=== PATIENT | female | born 1975 | race Caucasian/White ===

== ENCOUNTER 2023-01-01 09:05 | Outpatient (CLI) | payer OTHER, SELFPAY ==
--- NOTE | 2023-01-01 09:15 | CRLHL7_ITS ---
For Patients: As a result of the Century Cures Act, medical imaging exams and procedure reports are released immediately into your electronic medical record. You may view this report before your referring provider. If you have questions, please contact your health care provider. ULTRASOUND-GUIDED LEFT AXILLARY LYMPH NODE BIOPSY CLINICAL HISTORY: Suspicious mass left breast with suspicious left axillary lymph nodes COMPARISON STUDIES: 12/28/2022 TECHNIQUE: Real-time ultrasound with image documentation was used for targeting the left axillary lesion. Core biopsy specimens were obtained using an automated gun with a 18-gauge biopsy needle. CONSENT and TIME OUT: The procedure, risks, and alternatives were explained to the patient and a consent was signed. [place] Protocol was followed including pre-procedure verification that relevant information/documentation was available, reviewed and properly matched to the patient; consent accurate and complete; and equipment and supplies available. Time Out was conducted just prior to starting procedure to verify the four required elements: patient identity, correct side/site marked (if applicable), procedure, relevant images/results properly labeled and displayed (if applicable). PROCEDURE: The patient was positioned supine on the ultrasound table. The breast was prepped with ChloraPrep. 8 cc of 1 percent lidocaine used for local anesthesia. Core samples were obtained. A sterile metal biopsy clip was placed percutaneously to evita the lesion position within the left axilla. The specimens were placed in 10% formalin and sent to the pathology department. Pressure was held on the biopsy site until all bleeding subsided. The skin incision was closed with Steri-Strips. An ice pack was positioned over the biopsy site. Post-biopsy instructions were reviewed with the patient, and a written copy was given to her. LATERALITY: Left axilla LESION: Enlarged lymph node with thickened lobular hypoechoic cortex. The cortex measures up to 4.5 millimeters. The lymph node measures 2.2 cm. SUSPICION FOR MALIGNANCY: High NUMBER OF SAMPLES: 5 BIOPSY CLIP SHAPE: Oval PROXIMITY OF CLIP TO TARGET: Within the lesion IMPRESSION: Ultrasound-guided left axillary lymph node biopsy. When the pathology report is available, an addendum to this report will be made. Dictated by Prashant White MD @ 01/01/2023 12:13:48 PM ADDENDUM: Pathology consistent with metastatic carcinoma to a lymph node. This is concordant. Prashant White M.D. Diagnostic Radiologist [email or web address] DSM/djw: D& Transcribed: 11:18 a.m. (Electronically Signed)
--- NOTE | 2023-01-01 10:15 | CRLHL7_ITS ---
For Patients: As a result of the Century Cures Act, medical imaging exams and procedure reports are released immediately into your electronic medical record. You may view this report before your referring provider. If you have questions, please contact your health care provider. ULTRASOUND-GUIDED BREAST BIOPSY AND POST-BIOPSY DIGITAL MAMMOGRAM FOR BIOPSY MARKER PLACEMENT CLINICAL HISTORY: Suspicious mass LEFT breast. COMPARISON STUDIES: 12/28/2022. TECHNIQUE: Real-time ultrasound with image documentation was used for targeting the breast lesion. Core biopsy specimens were obtained using an automated gun with a 18-gauge biopsy needle. Post-biopsy CC and ML digital mammograms were obtained to document position of the biopsy marker. CONSENT and TIME OUT: The procedure, risks, and alternatives were explained to the patient and a consent was signed. [place] Protocol was followed including pre-procedure verification that relevant information/documentation was available, reviewed and properly matched to the patient; consent accurate and complete; and equipment and supplies available. Time Out was conducted just prior to starting procedure to verify the four required elements: patient identity, correct side/site marked (if applicable), procedure, relevant images/results properly labeled and displayed (if applicable). PROCEDURE: The patient was positioned supine on the ultrasound table. The breast was prepped with ChloraPrep. 8 cc of 1 percent lidocaine used for local anesthesia. Core samples were obtained. A sterile metal biopsy clip was placed percutaneously to evita the lesion position within the breast. The specimens were placed in 10% formalin and sent to the pathology department. Pressure was held on the biopsy site until all bleeding subsided. The skin incision was closed with Steri-Strips. An ice pack was positioned over the biopsy site. Post-biopsy instructions were reviewed with the patient, and a written copy was given to her. LATERALITY: LEFT breast. LESION: Heterogeneously hypoechoic lobular mass including calcifications with ill-defined margins measuring approximately 2.7 x 3.1 cm at 2 o`clock 5 cm from the nipple. SUSPICION FOR MALIGNANCY: High. NUMBER OF SAMPLES: 6 BIOPSY CLIP SHAPE: Oval. PROXIMITY OF CLIP TO TARGET: Within the lesion. IMPRESSION: Ultrasound-guided breast biopsy. When the pathology report is available, an addendum to this report will be made. 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 This is concordant. Appropriate action recommended. Dictated by: Prashant White MD @01/05/2023 10:48:13 AM (Electronically Signed)
--- NOTE | 2023-01-01 11:00 | CRLHL7_ITS ---
For Patients: As a result of the Century Cures Act, medical imaging exams and procedure reports are released immediately into your electronic medical record. You may view this report before your referring provider. If you have questions, please contact your health care provider. PLEASE SEE LEFT ULTRASOUND-GUIDED BIOPSY OF SAME DAY. CRL:autumn NORIS/Dictated by: Prashant White MD @ 01/01/2023 10:40:00 AM (Electronically Signed)
== END 2023-01-01 09:06 | disposition home or self-care (01) ==
LOC: US 09:11
PROVIDERS: PCP Family Medicine; Visit Provider Family Medicine
DX: N63.20 Unspecified lump in the left breast, unspecified quadrant (principal); C50.912 Malignant neoplasm of unspecified site of left female breast
CPT/HCPCS: 19083; 38505; 76942; 77065; 88305; 88360; 88361; A4648; A4649

== ENCOUNTER 2023-01-10 12:54 | Outpatient (CLI) | payer OTHER, SELFPAY ==
--- NOTE | 2023-01-10 13:00 | CRLHL7_ITS ---
For Patients: As a result of the Century Cures Act, medical imaging exams and procedure reports are released immediately into your electronic medical record. You may view this report before your referring provider. If you have questions, please contact your health care provider. BILATERAL BREAST MRI WITHOUT AND WITH GADOLINIUM CLINICAL HISTORY: Recently diagnosed invasive ductal carcinoma in the LEFT breast and metastatic carcinoma in a LEFT axillary lymph node. INDICATION FOR BREAST MRI: Staging of newly diagnosed breast cancer and screening of contralateral breast. Regional lymph nodes will also be assessed. COMPARISON STUDIES: Diagnostic bilateral mammogram and LEFT breast and axillary ultrasound 12/28/2022; ultrasound-guided LEFT breast and LEFT axillary lymph node biopsy and post biopsy mammogram 01/02/2020. CONTRAST: 20 mL Dotarem. TECHNIQUE: The patient was positioned prone using a breast coil. Multiple imaging sequences were obtained using 1-1.5 mm thick slices with no gap. The image sequences include T2-weighted STIR in the axial plane, T1-weighted nonfat-saturated gradient echo in the axial plane, pre- and post-contrast T1-weighted FLASH 3D with fat suppression in the axial plane, and T1-weighted FLASH high resolution 3D with fat suppression in the sagittal plane. Image post-processing was performed on a [employer] workstation. Complex 3D rendering including maximum intensity projections (MIPS) and volumetric renderings were obtained to optimize visualization of the extent of pathology and relationship to the nipple, skin, and chest wall. This aids in determining feasibility of breast conservation surgery. Subtraction, multiplanar reconstruction, mean curve determination, and angiogenesis mapping were also performed. The study was technically adequate. FINDINGS: Amount of Fibroglandular Tissue: Scattered fibroglandular tissue. Breast Background Enhancement: Mild. The exam is nondiagnostic due to lack of fat suppression on the axial images. IMPRESSIONS AND RECOMMENDATIONS: Nondiagnostic exam. Recommend technical repeat MRI. Dictated by Antoinette Tao MD @ 01/15/2023 1:36:04 PM/autumn NORIS/Dictated by: Antoinette Tao MD @ 01/15/2023 1:36:00 PM (Electronically Signed)
== END 2023-01-10 12:55 | disposition home or self-care (01) ==
PROVIDERS: PCP Family Medicine; Visit Provider Surgery
DX: C50.912 Malignant neoplasm of unspecified site of left female breast (principal); C77.3 Secondary and unspecified malignant neoplasm of axilla and upper limb lymph nodes
CPT/HCPCS: 77049; A9575

== ENCOUNTER 2023-01-16 12:33 | Outpatient (CLI) | payer OTHER, SELFPAY ==
--- NOTE | 2023-01-16 13:00 | CRLHL7_ITS ---
For Patients: As a result of the Century Cures Act, medical imaging exams and procedure reports are released immediately into your electronic medical record. You may view this report before your referring provider. If you have questions, please contact your health care provider. INDICATION: Newly diagnosed left-sided breast cancer. Left breast and left axillary lymph node biopsy recently. Metastatic left axillary lymph node. TECHNIQUE: Contrast enhanced CT of the chest abdomen and pelvis. 122 cc nonionic Isovue-370 administered. FINDINGS: CT chest: Clear lungs. No pneumothoraces nodules or infiltrates. No pleural or pericardial effusions. The trachea and mainstem bronchi are patent and clear. Asymmetric breast tissue left breast relative to the right with a biopsy clip laterally. Possible skin thickening of the left breast. Prominent left axillary lymph node measuring 1.6 cm with a biopsy clip in the thickened cortex, image 32 series 2. There is a 2nd mildly prominent left axillary lymph node image 40 series 2 measuring up to 1.7 cm. No internal mammary chain lymphadenopathy no hilar or mediastinal lymphadenopathy. The visualized included right breast is unremarkable. 7 mm low-attenuation right thyroid lobe lesion likely a colloid cyst. CT of the abdomen and pelvis: Mild hepatic fatty infiltration. The liver is otherwise negative. The spleen, pancreas, partly contracted gallbladder, both adrenal glands and both kidneys are normal. The stomach and duodenum although incompletely distended are within normal limits. The small and large bowel are negative for obstruction or ileus. No evidence for abdominal pelvic ascites or lymphadenopathy. The uterus, urinary bladder, and both ovaries are within normal limits. Calcified pelvic phleboliths. Both inguinal regions are unremarkable. The included skeleton is negative for lytic or blastic metastatic disease. No acute fractures. IMPRESSION: 1. Biopsy clip within the left breast and within a single left axillary node. Two mildly prominent left axillary lymph nodes in total one of which contains the biopsy clip. 2. Small colloid cyst right thyroid lobe. Mild hepatic fatty infiltration. 3. The examination is otherwise negative. Please note that all CT scans at this facility use dose modulation, iterative reconstruction, and/or weight-based dosing when appropriate to reduce radiation dose to as low as reasonably achievable. Dictated by Aristeo Rice MD @ 01/17/2023 6:30:18 AM (Electronically Signed)
--- NOTE | 2023-01-16 14:30 | CRLHL7_ITS ---
For Patients: As a result of the 21st Century Cures Act, medical imaging exams and procedure reports are released immediately into your electronic medical record. You may view this report before your referring provider. If you have questions, please contact your health care provider. BILATERAL BREAST MRI WITHOUT AND WITH GADOLINIUM, 01/16/2023 CLINICAL HISTORY: 47-year-old female with recently diagnosed LEFT breast cancer with biopsy-proven LEFT axillary metastasis. INDICATION FOR BREAST MRI: Staging of newly diagnosed breast cancer and screening of contralateral breast. Regional lymph nodes will also be assessed. COMPARISON STUDIES: Mammogram 12/28/2022, LEFT breast ultrasound and LEFT axillary ultrasound 12/28/2022, ultrasound-guided LEFT breast biopsy and axillary lymph node biopsy with post procedure mammogram 01/01/2023. CONTRAST: 20 cc of Dotarem. TECHNIQUE: The patient was positioned prone using a breast coil. Multiple imaging sequences were obtained using 1-1.5 mm thick slices with no gap. The image sequences include T2-weighted STIR in the axial plane, T1-weighted nonfat-saturated gradient echo in the axial plane, pre- and post-contrast T1-weighted FLASH 3D with fat suppression in the axial plane, and T1-weighted FLASH high resolution 3D with fat suppression in the sagittal plane. Image post-processing was performed on a [employer] workstation. Complex 3D rendering including maximum intensity projections (MIPS) and volumetric renderings were obtained to optimize visualization of the extent of pathology and relationship to the nipple, skin, and chest wall. This aids in determining feasibility of breast conservation surgery. Subtraction, multiplanar reconstruction, mean curve determination, and angiogenesis mapping were also performed. The study was technically adequate. FINDINGS: Amount of Fibroglandular Tissue: Scattered fibroglandular tissue. Breast Background Enhancement: Mild. RIGHT Breast: No suspicious areas of enhancement. LEFT Breast: Within the upper outer quadrant from 12-2 o`clock, middle depth there is an irregular with irregular margins and heterogeneous internal enhancement measuring 4.3 x 3.9 x 3.5 cm. This demonstrates fast initial enhancement with washout. Artifact from a biopsy marker clip is seen within the mass. This is consistent with the site of biopsy-proven malignancy. There is mild skin thickening and enhancement within the skin. There is a second mass, central to the nipple at 2-3 o`clock, anterior which is irregular with irregular margins and heterogeneous internal enhancement measuring 1.1 x 1.2 x 1.8 cm. This is located approximately 0.3 cm from the base of the nipple. This demonstrates fast initial enhancement with washout. There is intervening clumped non-mass enhancement. This area in total measures up to 7.1 cm. Lymph Nodes: There is an enlarged level I LEFT axillary lymph node with diffuse cortical thickening measuring up to 0.9 cm. Artifact from biopsy marker clip is seen within the lymph node. This is consistent with the known biopsy-proven aden metastasis. IMPRESSIONS AND RECOMMENDATIONS: LEFT Breast: 1. Mass and non-mass enhancement within the upper outer quadrant of the LEFT breast, anterior to middle depth, in total measuring up to 7 cm. The larger mass at the posterior aspect of the enhancement, measures up to 4.3 cm and contains the biopsy marker clip and is consistent with biopsy-proven malignancy. If it would alter clinical/surgical management, targeted ultrasound and ultrasound-guided biopsy of the anterior mass at 2-3 o`clock is recommended. Surgical/oncologic follow-up. 2. Abnormal LEFT axillary lymph node, consistent with known aden metastasis. RIGHT Breast: Negative, there is no MRI evidence of contralateral malignancy. BI-RADS Category 6: Known Biopsy-Proven Malignancy Dictated by Erica Valera MD @ 01/18/2023 1:40:06 PM dmitry/Dictated by: Erica Valera MD @ 01/18/2023 1:40:00 PM (Electronically Signed)
== END 2023-01-16 12:34 | disposition home or self-care (01) ==
PROVIDERS: PCP Family Medicine; Visit Provider Internal Medicine Hematology & Oncology
DX: C50.912 Malignant neoplasm of unspecified site of left female breast (principal); C77.3 Secondary and unspecified malignant neoplasm of axilla and upper limb lymph nodes; E04.1 Nontoxic single thyroid nodule; K76.0 Fatty (change of) liver, not elsewhere classified
CPT/HCPCS: 71260; 74177; 77049; A9575; Q9967

== ENCOUNTER 2023-01-25 06:11 | Day surgery (SDC) | payer OTHER, SELFPAY ==
[2023-01-25] MEDS: LACTATED RINGERS 1000 ML 1,000 ML 100 ML IV (06:20)
[2023-01-25 06:39] VITALS: BP 145/79; PULSE 73; RESP 16; TEMP 36.7; O2SAT 96; BMI 41.5
[2023-01-25 06:55] LABS: Ur HCG Qualitative* Negative (Negative)
[2023-01-25] MEDS: SODIUM CHLORIDE 0.9 % (FLUSH) 10 ML SYRINGE IVF (07:00)
--- NOTE | 2023-01-25 07:30 | CRLHL7_ITS ---
For Patients: As a result of the Century Cures Act, medical imaging exams and procedure reports are released immediately into your electronic medical record. You may view this report before your referring provider. If you have questions, please contact your health care provider. Indication: Port-A-Cath placement Technique: Two fluoroscopic images of the chest. Fluoroscopic time 37.1 seconds. IMPRESSION: Fluoroscopic guidance for Port-A-Cath placement. Dictated by Prashant White MD @ 01/25/2023 9:52:48 AM (Electronically Signed)
[2023-01-25] MEDS: CLINDAMYCIN 900 MG/50 ML-D5W IVPB (07:45)
[2023-01-25] MEDS: HEPARIN 500 UNIT/5 ML SYRINGE IVF (08:20)
[2023-01-25] MEDS: BUPIVACAINE 0.5% 30 ML INJECTION (08:20)
[2023-01-25] MEDS: 0.9% SODIUM CHL 50 ML VIAL INJECTION (08:20)
[2023-01-25] MEDS: LIDOCAINE 1% MDV 20 ML INJECTION (08:20)
--- NOTE | 2023-01-25 08:27 | CRLHL7_ITS ---
For Patients: As a result of the Century Cures Act, medical imaging exams and procedure reports are released immediately into your electronic medical record. You may view this report before your referring provider. If you have questions, please contact your health care provider. INDICATION: Port placement TECHNIQUE: Chest 1 view. COMPARISON: 01/25/2023 FINDINGS: Cardiovascular and mediastinum: Heart size and vasculature are normal in caliber and appearance. Mediastinum is within normal limits. History port catheter tip mid SVC. Lungs and pleural space: Lungs are clear. No sign of infiltrate or mass. No sign of pleural effusion. No pneumothorax. Bones and soft tissues: No significant findings. IMPRESSION: Versed pedrito catheter tip in the mid SVC. No pneumothorax Dictated by Prashant Juarez MD @ 01/25/2023 9:37:21 AM (Electronically Signed)
--- NOTE | 2023-01-25 08:29 | PM.GSPRC ---
Operative Note Pre-op diagnosis: Left-sided triple positive invasive ductal carcinoma with axillary lymph node metastasis Post-op diagnosis: Same Type of Procedure: Right IJ port placement with ultrasound and fluoroscopic guidance Indications: The patient is a 47-year-old female who was found have a palpable breast mass. Imaging revealed a suspicious mass which was biopsied and found to be triple positive invasive ductal carcinoma. A left axillary lymph node was noted to be enlarged and this was biopsied and found to be positive for metastatic carcinoma. She was felt to benefit from neoadjuvant chemotherapy and her oncologist has requested port placement. Procedure Description: After discussing the risks and benefits of the procedure, the patient signed informed consent.? The operative site was marked and the patient was brought to the operating room and placed on the operating table in supine position.? Care was taken to pad the patient's pressure points.?? The patient was then given sedation by anesthesia.?? The operative site was then prepped and draped in the usual sterile fashion.? A time-out was then performed. The patient's right internal jugular vein was visualized using ultrasound. Local anesthetic was injected into the skin overlying the vein. This was accessed percutaneously using ultrasound guidance. Using Seldinger technique, a guidewire was threaded through the needle. A skin analia was made around the wire. Next, local anesthetic was injected into the skin below the clavicle and along the proposed tract to the neck incision. A skin incision was then made with a 15 blade and a pocket created in the subcutaneous tissue with cautery. A tunneler was then used to thread the catheter from the chest wall pocket to the neck incision. Once this was done fluoroscopy was brought into the field. Over the wire the tract was dilated using fluoroscopy. The wire and the dilator were then removed leaving the sheath in the vein. Through this, the catheter was threaded. Using fluoroscopy, the catheter was positioned into the distal SVC. The catheter was noted to flush and aspirate easily. The catheter was then connected to the port. The port was placed in the pocket and secured in place with 2 0 Prolene sutures. It was noted to flush and aspirate easily. This was then locked with heparinized saline. The skin was closed with absorbable suture. Glue was then applied. Instrument sponge and needle counts were correct at the end of the case. The patient was woken and taken to the PACU in stable condition. ? The patient tolerated the procedure well. Findings: Right IJ power port placed in the mid SVC. Implants: Power port Anesthesia: MAC Surgeon: Aure Howell MD Estimated blood loss (mL): 3 Condition: stable Disposition: same day
--- NOTE | 2023-01-25 08:37 | W.ANESCHARGE ---
Anesthesia Charges Start Date/Time Anesthesia Start Date: 01/25/23 Anesthesia Start Time: 07:38 Stop Date/Time Anesthesia Stop Date: 01/25/23 Anesthesia Stop Time: 08:36
[2023-01-25 08:41] VITALS: BP 131/74; PULSE 66; RESP 16; TEMP 36.8; O2SAT 97
[2023-01-25 08:53] VITALS: BP 124/72; PULSE 58; RESP 16; O2SAT 98
[2023-01-25] MEDS: IBUPROFEN 600 MG TABLET PO (08:58)
[2023-01-25 09:03] VITALS: BP 111/73; PULSE 61; RESP 16; O2SAT 98
[2023-01-25 09:19] VITALS: BP 123/65; PULSE 60; RESP 16; O2SAT 99
== END 2023-01-25 09:46 | disposition home or self-care (01) ==
PROVIDERS: Anesthesiology; PCP Family Medicine; Visit Provider Surgery
PROC: (CPT 36561; principal; 2023-01-25 07:30)
DX: Z45.2 Encounter for adjustment and management of vascular access device (principal); C50.912 Malignant neoplasm of unspecified site of left female breast; Z17.0 Estrogen receptor positive status [ER+]; C77.3 Secondary and unspecified malignant neoplasm of axilla and upper limb lymph nodes
CPT/HCPCS: 36561; 00532; 71045; 76000; 81025; A9270; C1788; J0665; J1100; J1642; J2250; J2405; J2704; J3010; J7120; S0077

== ENCOUNTER 2023-06-01 14:01 | Outpatient (CLI) | payer OTHER, SELFPAY | END 2023-06-01 14:02 | disposition home or self-care (01) | LOC: RAD 14:01 | PROVIDERS: PCP Family Medicine; Visit Provider Internal Medicine Hematology & Oncology | DX: Z51.11 Encounter for antineoplastic chemotherapy (principal); I34.0 Nonrheumatic mitral (valve) insufficiency; I35.1 Nonrheumatic aortic (valve) insufficiency | CPT/HCPCS: 93306 ==

== ENCOUNTER 2023-06-07 09:15 | Outpatient (CLI) | payer OTHER, SELFPAY ==
--- NOTE | 2023-06-07 09:15 | CRLHL7_ITS ---
For Patients: As a result of the Century Cures Act, medical imaging exams and procedure reports are released immediately into your electronic medical record. You may view this report before your referring provider. If you have questions, please contact your health care provider. 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 This was diagnosed in 12/2022. The patient is undergoing neoadjuvant chemotherapy. INDICATION FOR BREAST MRI: Assessment of post-neoadjuvant chemotherapy. COMPARISON STUDIES: MRI 01/16/2023. CONTRAST: 15 mL Dotarem. TECHNIQUE: The patient was positioned prone using a breast coil. Multiple imaging sequences were obtained using 1-1.5 mm thick slices with no gap. The image sequences include T2-weighted STIR in the axial plane, T1-weighted nonfat-saturated gradient echo in the axial plane, pre- and post-contrast T1-weighted FLASH 3D with fat suppression in the axial plane, and T1-weighted FLASH high-resolution 3D with fat suppression in the sagittal plane. Image post-processing was performed on a [employer] workstation. Complex 3D rendering including maximum intensity projections (MIPS) and volumetric renderings were obtained to optimize visualization of the extent of pathology and relationship to the nipple, skin, and chest wall. This aids in determining feasibility of breast conservation surgery. Subtraction, multiplanar reconstruction, mean curve determination, and angiogenesis mapping were also performed. The study was technically adequate. FINDINGS: Scattered fibroglandular tissue. Breast Background Enhancement: Mild. RIGHT Breast: No suspicious enhancement of the RIGHT breast. LEFT Breast: Previously the patient`s breast cancer was reflected by mass and non-mass enhancement in the upper outer quadrant of the LEFT breast anterior to middle depth measuring up to 7 cm. Currently a biopsy clip is seen in the LEFT upper outer breast anterior depth at the area of mass with slight architectural distortion. There is no enhancement currently seen. Lymph Nodes: The previously biopsied position lymph node measured 2.2 x 1.7 cm in short axis. 9 mm of cortical thickening. Currently the biopsied axillary lymph node measures 1.7 x 1 cm short in short axis. The cortex is thin measuring approximately 2 mm. Susceptibility artifact in the clip is seen. Additional axillary lymph nodes demonstrate normal morphology. No abnormal axillary lymph nodes on the RIGHT. There is minimal skin thickening of the LEFT breast, decreased from the prior study. IMPRESSIONS AND RECOMMENDATIONS: Excellent imaging response of the LEFT breast. No suspicious enhancement is currently seen. Slight architectural distortion at the site of previous biopsied malignancy. Normal size of LEFT axillary biopsied lymph node with thin cortex. Cortex previously was thickened measuring up to 9 mm. No suspicious findings in the RIGHT breast. No abnormal axillary lymph nodes. Surgical and oncological management per referring physician. BI-RADS: BI-RADS Category 6: Known Biopsy-Proven Malignancy. Elvi Nation M.D. Diagnostic/Breast Radiologist [email or web address] NORIS/Dictated by: Elvi Nation MD @ 06/11/2023 4:05:00 PM (Electronically Signed)
== END 2023-06-07 09:16 | disposition home or self-care (01) ==
LOC: MRI 09:15
PROVIDERS: PCP Family Medicine; Visit Provider Physician Assistant
DX: C50.919 Malignant neoplasm of unspecified site of unspecified female breast (principal)
CPT/HCPCS: 77049; 97165; 97535; A9575

== ENCOUNTER 2023-06-14 06:49 | Day surgery (SDC) | payer OTHER, SELFPAY ==
[2023-06-14] VITALS (20 sets, daily range): BP systolic 103–136; BP diastolic 54–75; PULSE 61–89; RESP 12–20; TEMP 36.2–36.9; O2SAT 93–99; BMI 40.8
--- NOTE | 2023-06-14 | CRLHL7_ITS ---
For Patients: As a result of the Cures Act, medical imaging exams and procedure reports are released immediately into your electronic medical record. You may view this report before your referring provider. If you have questions, please contact your health care provider. LEFT BREAST SPECIMEN RADIOGRAPH CLINICAL HISTORY: Mastectomy, LEFT breast cancer with metastatic axillary lymph node. COMPARISON: 12/28/2022. FINDINGS: Two views of the LEFT axillary lymph node specimen submitted. The specimen contains the biopsied node, biopsy clip and localization wire. IMPRESSION: Specimen contains the biopsied lymph node, biopsy clip and localization wire. ACR not applicable Dictated by Prashant White MD @ 06/15/2023 10:55:39 AM jj/Dictated by: Prashant White MD @ 06/15/2023 10:55:00 AM (Electronically Signed)
[2023-06-14 07:35] LABS: Ur HCG Qualitative* Negative (Negative)
--- NOTE | 2023-06-14 08:00 | CRLHL7_ITS ---
For Patients: As a result of the Century Cures Act, medical imaging exams and procedure reports are released immediately into your electronic medical record. You may view this report before your referring provider. If you have questions, please contact your health care provider. SENTINEL LYMPH NODE LOCALIZATION INJECTION, LEFT BREAST CANCER CLINICAL HISTORY: Left breast cancer LATERALITY: Left breast TECHNIQUE: With the patient supine, the periareolar left breast was cleansed with alcohol. 2 cc of 1% buffered lidocaine was injected intradermal in the upper outer periareolar region of the left breast with a 25-gauge needle. Next, 0.78 millicuries of technetium Tc 99m filtered sulfur colloid in a volume of 1 cc was injected intradermal in the upper outer periareolar breast with a 25-gauge needle. The patient tolerated the procedure well and there were no immediate complications. IMPRESSION: Injection for sentinel lymph node of the left breast. Dictated by Prashant White MD @ 06/14/2023 10:57:40 AM (Electronically Signed)
[2023-06-14] MEDS: SODIUM CHLORIDE 0.9 % (FLUSH) 10 ML SYRINGE IVF (08:01)
--- NOTE | 2023-06-14 08:15 | CRLHL7_ITS ---
For Patients: As a result of the Cures Act, medical imaging exams and procedure reports are released immediately into your electronic medical record. You may view this report before your referring provider. If you have questions, please contact your health care provider. LEFT AXILLARY LYMPH NODE WIRE LOCALIZATION USING ULTRASOUND GUIDANCE CLINICAL HISTORY: LEFT breast cancer with metastatic disease to the LEFT axilla. LATERALITY: LEFT axilla. LESION: Previously biopsied LEFT axillary lymph node containing a clip. LOCALIZATION WIRE: [place] hookwire. TECHNIQUE: The localization wire was placed using real-time ultrasound guidance with image documentation. XCCL and medial-lateral digital mammograms were obtained after localization wire placement. CONSENT and TIME OUT: The procedure, risks, and alternatives were explained to the patient and a consent was signed. [place] Protocol was followed including pre-procedure verification that relevant information/documentation was available, reviewed and properly matched to the patient; consent accurate and complete; and equipment and supplies available. Time Out was conducted just prior to starting procedure to verify the four required elements: patient identity, correct side/site marked (if applicable), procedure, relevant images/results properly labeled and displayed (if applicable). PROCEDURE: The skin was prepped with Betadine and 8 cc of 1% lidocaine was injected for local anesthesia. The localization wire was placed within or near the targeted left axillary lymph node lesion using ultrasound guidance. The patient tolerated the procedure well. PROXIMITY OF WIRE TO LESION: The wire is located within the lesion adjacent to the clip. IMPRESSION: Successful LEFT axillary lymph node wire localization. ACR not applicable Dictated by Prashant White MD @ 06/14/2023 9:23:04 AM jj/Dictated by: Prashant White MD @ 06/14/2023 9:23:00 AM (Electronically Signed)
[2023-06-14] MEDS: LACTATED RINGERS 1000 ML 1,000 ML 100 ML IV ×3 (09:00→15:00)
--- NOTE | 2023-06-14 09:00 | CRLHL7_ITS ---
For Patients: As a result of the Cures Act, medical imaging exams and procedure reports are released immediately into your electronic medical record. You may view this report before your referring provider. If you have questions, please contact your health care provider. PLEASE SEE ULTRASOUND-GUIDED LEFT AXILLARY LYMPH NODE WIRE LOCALIZATION PERFORMED SAME DAY CRL:dennys noyola/Dictated by: Prashant White MD @ 06/14/2023 9:34:00 AM (Electronically Signed)
[2023-06-14] MEDS: ACETAMINOPHEN 500 MG TABLET 1000 MG PO (09:36)
[2023-06-14] MEDS: SCOPOLAMINE 1 MG/3 DAY PATCH 1 PATCH TRANSDERMA (09:36)
[2023-06-14] MEDS: GABAPENTIN 600 MG TABLET PO (09:36)
--- NOTE | 2023-06-14 10:25 | P.GSOP_ITS ---
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 Bilateral skin sparing mastectomy 2. Left axillary sentinel node biopsy 3. Biopsy left axillary wire localized node Indications: The patient is a 48-year-old female who noticed a palpable mass on her left breast. Workup revealed a suspicious mass at 2 o'clock, 5 cm from the nipple. Biopsy showed this to be a grade 3 invasive ductal carcinoma with associated DCIS. This was ER NC positive, HER2 positive. She also had metastasis to an axillary lymph node. MRI showed there to be 2 separate lesions, measuring up to 7 cm in total. She underwent neoadjuvant chemotherapy. After discussion of surgical options, she elected to proceed with bilateral mastectomy with delayed reconstruction. Procedure Description: After discussion of risks and benefits, the patient was brought to the operating room and placed supine on the operating table. General anesthesia was induced. 1 hr to incision, radiotracer was injected into the dermis the [right/left] breast just above the areola. 10 min prior to the incision I injected 3 ml isosulfan blue dye into the dermis above the areola. This was massaged for 3 min. Once this was completed, the area was prepped and draped sterilely. A time-out was then completed. We began on the left side. Preoperatively, symmetric transverse elliptical incisions were drawn on the skin, encompassing the nipple. The planned incision was incised with a scalpel. Subcutaneous flaps were created using cautery. Care was taken to stay in the avascular plane between the breast tissue in the subcutaneous tissue. Dissection was taken superiorly to the clavicle, medially to the sternum, inferiorly to the inframammary fold, and laterally to the latissimus. Once the flaps were created, the breast was taken off of the chest wall, taking the pectoralis fascia with. Small bleeding vessels were cauterized. The specimen was marked with a stitch at the superior aspect and sent for margins. Grossly, the tumor bed was noted but this abutted the anterior margin. I examined the area of concern with the pathologist. This corresponded to an area approximately 2 cm superior to the lateral aspect of the elliptical skin incision, in the 2 o'clock position at the site of the original tumor. I elected to re-excise the skin overlying this region as the flaps here were quite thin. I traced out a 3 cm margin at the superior lateral aspect of the prior incision and excised an additional triangle of tissue here thereby extending the original incision. At the superior aspect, I took and additional margin of subcutaneous fat as well. This was marked with a single stitch superior and a double stitch at the area of the specimen corresponding to the apex of the prior incision. Attention was then turned to the sentinel lymph node biopsy. The probe was brought into the field. A strong signal was noted and dissection was taken down through the clavipectoral fascia into the axillary fat. I 1st identified the previously biopsied lymph node. I incised the axillary fat and was able to identify the wire. I pulled the wire through the skin and used this to find the lymph node. This node did not have a signal with the Neoprobe nor was it blue. It was sent for x-ray which did show the clip. This was sent for frozen section which did not show evidence of malignancy. There was chemotherapy effect noted. The probe was then placed in the axilla and I was able to identify a node at the end of a blue channel. This had a strong signal of 1900 it appeared to be bilobed versus 2 lobes matted together. There was still additional signal in the axilla and next to the 1st node, a 2nd node was removed. This also had a signal ex vivo, but only about 200. These were sent together as sentinel nodes 1 and 2. There was still a signal in the axilla which was greater than 10%. Two additional nodes were found in dissected free of the axillary fat. Small lymphatic channels and blood vessels were clipped. These were sent as sentinel nodes 3 and 4. A small bleeding vessel in the axilla was clamped and tied. This resulted in excellent hemostasis. There were no further suspicious nodes, no signal greater than 10% and no additional blue nodes. Attention was then turned to the right side. An identical incision was made and dissection was taken down into the subcutaneous tissue creating skin flaps superiorly to the clavicle, with care to avoid entering the patient's port-a-cath capsule, medially to the sternum, inferiorly to inframammary fold and laterally to the latissimus. The breast tissue was then removed from the pectoralis muscle, taking the pectoralis fascia. Hemostasis was achieved with cautery. A superior stitch was placed to orient the specimen and it was sent to pathology. By this time the frozen section on the lymph nodes returned negative for all of the lymph nodes. The specimen x-ray did show the clip and wire in the lymph node. The wounds were again examined for hemostasis. This appeared excellent. Rodrigo was placed in the wound bed bilaterally. Fifteen [place] Micheal drains were then placed through the skin and into the wounds on the chest wall bilaterally. These were sewn in place using Ethilon suture. The wounds were then closed with 3-0 Vicryl dermal and 4-0 Monocryl running subcuticular suture. Glue was then applied. The patient was then placed in a compression dressing. ? The patient was then woken and transported to the recovery area in stable condition. ? The patient tolerated the procedure well. Findings: 1. Left breast with residual tumor cavity noted and abutting the anterior superior margin. 2. Left axillary wire localized node containing clip on x-ray. Chemotherapy changes noted but no malignancy on frozen section. 3. [place] nodes 1 through 4 negative for malignancy on frozen section 4. No gross abnormalities of the right breast. Anesthesia: GETA Surgeon: Aure Howell MD Estimated blood loss (mL): 50 Additional Specimen Information: A. Left breast stitch superior B. Left axillary wire localized node C. [place] nodes 1 and 2 D. [place] nodes 3 and 4 E. New anteriosuperior margin, left breast - single stitch superior, double stitch at apex of the original incision. F. Right breast, stitch superior Condition: stable Disposition: PACU Date of procedure: 06/14/23 [place] Node Biopsy for Breast Cancer Operation Performed with Curative Intent: Yes Tracers used to identify sentinel nodes in the neoadjuvant setting: Dye and Radioactive Tracer All nodes (colored or non-colored) present at the end of a dye filled lymphatic channel were removed: Yes All significantly radioactive nodes were removed: Yes All palpably suspicious nodes were removed: Yes Biopsy proven positive nodes marked with clips prior to chemotherapy were identified and removed: Yes
--- NOTE | 2023-06-14 10:25 | W.PM.H&PU ---
History & Physical Update History & Physical Update H&P Reviewed and patient assessed: No changes noted
[2023-06-14] MEDS: CLINDAMYCIN 900 MG/50 ML-D5W IVPB (10:45)
[2023-06-14] MEDS: ISOSULFAN BLUE 5 ML VIAL INJECTION (11:02)
[2023-06-14] MEDS: HYDROmorphone 0.5 mg/0.5 ml inj IVP (14:54)
--- NOTE | 2023-06-14 15:34 | W.PM.NB ---
Nerve Block Nerve Block Time Seen by Provider: 10:30 Date Seen: 06/14/23 Type of block requested by surgeon for post-operative analgesia: intercostal and intercostal add on Side: bilateral Time out performed: Yes Verification of patient name: Yes Verification of date of : Yes Site marking: site marked Name of person performing procedure: Stewart Continuous monitoring Was continuous monitoring of O2 sat, B/P, patient monitor, recorded every 15 minutes?: Yes Procedure Checklist: sterile prep, needles and gloves Ultrasound guided. Images saved: Yes Medications given in 5ml increments after negative aspiration: Marcaine %: 0.25 mL: 40 and Exparel mL: 20 Patient tolerated procedure well: Yes Block Charges Block Charge (with Pro Fee): Intercostal Nerve Block Use of Ultrasound Machine for Block: Yes- US Guidance/pain block
--- NOTE | 2023-06-14 15:35 | W.ANESCHARGE ---
Anesthesia Charges Start Date/Time Anesthesia Start Date: 06/14/23 Anesthesia Start Time: 10:16 Stop Date/Time Anesthesia Stop Date: 06/14/23 Anesthesia Stop Time: 14:44
--- NOTE | 2023-06-14 16:02 | W.ANESCHARGE ---
Anesthesia Charges Start Date/Time Anesthesia Start Date: 06/14/23 Anesthesia Start Time: 10:16 Stop Date/Time Anesthesia Stop Date: 06/14/23 Anesthesia Stop Time: 14:44
[2023-06-14] MEDS: HYDROCODONE-ACETAMIN 5-325 MG 1 TAB PO ×2 (19:09→22:08)
[2023-06-14] MEDS: ACETAMINOPHEN 325 MG TABLET 650 MG PO (20:20)
[2023-06-14] MEDS: LACTATED RINGERS 1000 ML 1,000 ML 125 ML IV (22:02)
--- NOTE | 2023-06-14 22:27 | PC.NURSE ---
Shift [id number]- Patient arrives from PACU at approximately 1515. Pain is well-controlled with PRN pain medications- see eMAR for administration. DANA bulbs patent and draining. DANA stripping demonstrated and explained for patient. See charting for values. Bandages are clean, dry, and intact. Ice packs applied to chest throughout. She is up and walks the hallway this evening. She is voiding large amounts- missing hat for measurements.
[2023-06-15] VITALS: BP 111/61; PULSE 74; RESP 16; TEMP 36.7; O2SAT 99
[2023-06-15] MEDS: ACETAMINOPHEN 325 MG TABLET 650 MG PO (01:11)
[2023-06-15 03:00] VITALS: BP 108/51; PULSE 70; RESP 16; TEMP 36.8; O2SAT 98
[2023-06-15] MEDS: HYDROCODONE-ACETAMIN 5-325 MG 1 TAB PO ×2 (05:08→10:11)
[2023-06-15] MEDS: LACTATED RINGERS 1000 ML 1,000 ML 125 ML IV (05:57)
[2023-06-15 07:00] VITALS: BP 126/72; PULSE 79; PULSE 99; RESP 16; TEMP 36.7; O2SAT 97; O2SAT 99
--- NOTE | 2023-06-15 08:46 | PC.NURSE ---
Patient pleasant, alert and oriented.? Ambulated in room independently. Given PRN [place] and PRN Tylenol for pain rated 4/10. DANA drains emptied q 4hrs. Drainage from DANA drains between 18-20ml. VSS.?
--- NOTE | 2023-06-15 10:02 | P.DS_ITS ---
DS: Providers Provider Date Seen: 06/15/23 Primary care physician: Sara Javier MD Attending Physician on discharge: Aure Howell MD DS: Diagnosis Discharge Diagnosis (1) S/P bilateral mastectomy: Status: Acute Problem details: left SLNB DS: Summary Hospital Course Hospital Course: 48-year-old female underwent bilateral mastectomy and left sentinel lymph node biopsy. Patient was admitted postoperatively. She did well overnight. Her bilateral drains put out minimal amount of serosanguineous fluid. Patient tolerated regular diet with no nausea vomiting. Her pain was controlled with p.o. medications. Patient urinated and ambulated. Time Spent with Patient Time attestation: Total time spent providing and/or coordinating discharge services: Exam Narrative: Exam Narrative: Chest: Bilateral mastectomy incisions are without erythema or necrotic tissue. Steri-Strips are intact. There are no expanding hematomas. Bilateral drains are with bloody serosanguineous fluid. Const: Vital Signs, click to edit/add: Vital Signs - 24 hr 06/14/23 14:40 06/14/23 14:45 06/14/23 14:50 Temperature 97.6 F Pulse Rate 78 76 73 Pulse Rate [Right Pulse Oximeter] Respiratory Rate 15 18 20 Blood Pressure 131/70 128/67 134/60 Blood Pressure [Ri ght Arm] Pulse Oximetry 95 95 95 Oxygen Delivery Me thod Room Air Oxygen Flow Rate 06/14/23 14:55 06/14/23 15:00 06/14/23 15:05 Temperature Pulse Rate 75 71 72 Pulse Rate [Right Pulse Oximeter] Respiratory Rate 14 12 16 Blood Pressure 126/67 126/66 123/69 Blood Pressure [Ri ght Arm] Pulse Oximetry 93 95 97 Oxygen Delivery Me thod Oxygen Flow Rate 06/14/23 15:10 06/14/23 15:15 06/14/23 15:15 Temperature 97.7 F 97.1 F L 97.1 F L Pulse Rate 71 76 Pulse Rate [Right Pulse Oximeter] 76 Respiratory Rate 20 18 16 Blood Pressure 122/63 Blood Pressure [Ri ght Arm] 106/58 L 106/58 L Pulse Oximetry 94 95 Oxygen Delivery Me thod Room Air Nasal Cannula Nasal Cannula Oxygen Flow Rate 1 0.5 06/14/23 15:30 06/14/23 15:45 06/14/23 16:00 Temperature Pulse Rate Pulse Rate [Right Pulse Oximeter] 74 73 74 Respiratory Rate 16 16 16 Blood Pressure Blood Pressure [Ri ght Arm] 109/60 103/58 L 112/75 Pulse Oximetry 94 96 97 Oxygen Delivery Me thod Nasal Cannula Nasal Cannula Room Air Oxygen Flow Rate 0.5 0.5 06/14/23 16:15 06/14/23 16:45 06/14/23 17:15 Temperature Pulse Rate Pulse Rate [Right Pulse Oximeter] 75 75 71 Respiratory Rate 16 16 16 Blood Pressure Blood Pressure [Ri ght Arm] 106/63 106/63 110/57 L Pulse Oximetry 96 96 95 Oxygen Delivery Me thod Room Air Room Air Room Air Oxygen Flow Rate 06/14/23 18:12 06/14/23 19:15 06/14/23 20:15 Temperature 97.1 F L Pulse Rate Pulse Rate [Right Pulse Oximeter] 80 61 84 Respiratory Rate 16 18 18 Blood Pressure Blood Pressure [Ri ght Arm] 108/54 L 136/70 121/62 Pulse Oximetry 95 95 98 Oxygen Delivery Me thod Room Air Room Air Room Air Oxygen Flow Rate 06/14/23 21:15 06/14/23 23:00 06/15/23 00:00 Temperature 98.1 F Pulse Rate Pulse Rate [Right Pulse Oximeter] 76 74 Respiratory Rate 18 16 Blood Pressure Blood Pressure [Ri ght Arm] 113/59 L 111/61 Pulse Oximetry 99 97 99 Oxygen Delivery Me thod Room Air Room Air Oxygen Flow Rate 06/15/23 03:00 06/15/23 07:00 Temperature 98.3 F Pulse Rate Pulse Rate [Right Pulse Oximeter] 70 Respiratory Rate 16 Blood Pressure Blood Pressure [Ri ght Arm] 108/51 L Pulse Oximetry 98 97 Oxygen Delivery Me thod Room Air Oxygen Flow Rate Discharge Plan Discharge Disposition: Home, Self-Care Discharging Surgeon: Bryson Govea Follow-Up Appointment: 10 days - [facility] (04/26/23) Prescriptions: New hydrocodone-acetaminophen 5-325 mg tablet 1 - 2 tab PO Q6H PRN (Reason: Pain) Qty: 25 0RF Rx Instructions: 1 - 2 tab orally as needed Continued albuterol sulfate 90 mcg/actuation aerosol powdr breath activated 2 inh inhalation Q6H PRN Zyrtec 10 mg capsule 10 mg PO QDAY PRN acetaminophen [Tylenol Extra Strength] 500 mg tablet 500 - 1,000 mg PO QID PRN Excedrin Migraine 250-250-65 mg tablet 2 tab PO Q6H PRN prochlorperazine maleate [Compazine] 5 mg tablet 5 mg PO QID PRN (Reason: nausea and vomiting) Qty: 60 0RF ondansetron HCl 4 mg tablet 4 mg PO Q6H PRN (Reason: nausea and vomiting) Qty: 60 0RF diphenhydramine HCl [Benadryl Allergy] 25 mg tablet 25 mg PO Q4-6H PRN hydrocortisone 1 % cream 1 applic topical TID PRN diphenoxylate-atropine [Lomotil] 2.5-0.025 mg tablet 1 tab PO TID PRN (Reason: diarrhea) Qty: 60 0RF loperamide 2 mg capsule 2 mg PO Q6H PRN Activity Level: No strenuous activity Activity Detail: No lifting more than 20 lb for 4 weeks. Avoid raising left arm overhead. Discharge Diet: Regular Patient Instructions: Surgical Site Infections (DC), Deep Sedation (DC), Post- Operative Instructions: Breast Surgery Additional Instructions: Wound care: Your sutures are under the skin and will dissolve over time. Leave steri strips (white bandages) over incisions until they fall off (or remove after 7 days). OK to shower tomorrow but avoid bathing, soaking or swimming for 2 weeks. Pat the incisions dry. No need to wash or scrub the area. Cover drain sites with Tegaderm or Saran wrap and wrapped in the shower. Apply ice to the area as needed for swelling. It is also OK to use a heating pad if this provides more comfort to you. Drain care: Empty and record drain output daily. Change gauze around drains daily. Bring t he record of drain output with you to your postoperative visit. Pain control: You were prescribed a pain medication. This medication contains acetaminophen (Tylenol). If you are taking your prescribed pain pills 4 times daily, do not take additional acetaminophen. As your pain improves, you can try taking acetaminophen instead of the prescribed pain pill. It is ok to take Ibuprofen or Naproxen (per directions on packaging). This medication helps with inflammation and swelling. Take an [id number] stool softener while you are taking prescribed pain medications to help alleviate constipation. I recommend Senna and/or Colace. Take as directed on package. If you have not had a bowel movement in 3 days, try taking Miralax as directed on the package. All of these are available over the counter. Follow-up Follow up with Dr. Howell on 04/26. Please call if you are experiencing severe pain, nausea, vomiting, difficulty urinating, fever or have not had bowel movement in 4 days after surgery. Forms: Work/School Release Follow-up: Sara Javier MD [Primary Care Provider] - Aure Howell MD [Staff Physician] - Discharge Orders: Discharge Order (Routine); Ordered 06/15/23 Ordered By: Bryson Govea
--- NOTE | 2023-06-15 15:16 | PC.NURSE ---
Discharge Note: Pt friendly and cooperative. Toileting independently. VS WNL and LS COA. Rates pain 4-6/10, [place] given PRN for discomfort. Pt assisted in emptying DANA drains this morning and has demonstrated competence with DANA care knowledge. Ice packs to chest as tolerated and dressings C,D,&I. She was discharged to home independently in the care of her friend. Pt verbalized understanding of discharge instructions and follow up appointments.
== END 2023-06-15 15:20 | disposition home or self-care (01) ==
LOC: OR 06:49 → MEDSURG 06:51
PROVIDERS: PCP Family Medicine; Visit Provider Surgery
PROC: (CPT 19303; 2023-06-14 09:15)
DX: C50.412 Malignant neoplasm of upper-outer quadrant of left female breast (principal); C77.3 Secondary and unspecified malignant neoplasm of axilla and upper limb lymph nodes; Z17.0 Estrogen receptor positive status [ER+]; G89.18 Other acute postprocedural pain
CPT/HCPCS: 19303; 38525; 01610; 19285; 38792; 64420; 64421; 76942; 77065; 81025; 88307; 88309; A9270; A9541; C1769; C9290; J0330; J0665; J1100; J1170; J1885; J2250; J2405; J2704; J3010; J3490; J7120; S0077

== ENCOUNTER 2023-06-16 22:01 | Emergency (ER) | payer OTHER, SELFPAY ==
[2023-06-16 22:12] VITALS: BP 135/80; PULSE 72; RESP 16; TEMP 36.9; O2SAT 96; BMI 40.3
--- NOTE | 2023-06-16 22:22 | ED.GENADULT ---
HPI - General Adult General Chief complaint: Lower Extremity Swelling Stated complaint: swelling in legs Time Seen by Provider: 06/16/23 22:19 History of Present Illness HPI narrative: Pt c/o bilateral leg swelling. Pt states she had a double mastectomy and lymphadenectomy performed by Dr. Howell on . Pt states biopsies came back negative for cancer. Pt originally diagnosed with breast cancer this summer and underwent chemo. Pt states she was discharged from Med Surg unit yesterday, so called them today for advice on swelling and advised to come to ER 48-year-old woman presenting to the emergency department with concern of swelling in both lower legs. Swelling even around her hips. Seems to started more though in the ankles noticeably and working its way up. Gradual process since the surgery. Admittedly is less active. Producing normal urine. No increased shortness of breath. No new chest pain other than related to the surgery. Worried about blood clots. Related Data Home Medications Medication Instructions Recorded Confirmed acetaminophen 500 mg tablet 500 - 1,000 mg PO QID PRN 01/18/23 06/22/23 (Tylenol Extra Strength) albuterol sulfate 90 mcg/actuation 2 inh inhalation Q6H PRN 01/18/23 06/22/23 breath activated powder inhaler [id number] 250 2 tab PO Q6H PRN 01/18/23 06/22/23 mg-250 mg-65 mg tablet (Excedrin Migraine) cetirizine 10 mg capsule (Zyrtec) 10 mg PO QDAY PRN 01/18/23 06/22/23 loperamide 2 mg capsule 2 mg PO Q6H PRN 02/15/23 06/22/23 diphenhydramine HCl 25 mg tablet 25 mg PO Q4-6H PRN 03/19/23 06/22/23 (Benadryl Allergy) hydrocortisone 1 % topical cream 1 applic topical TID PRN 03/19/23 06/22/23 Previous Rx's Medication Instructions Recorded ondansetron HCl 4 mg tablet 4 mg PO Q6H PRN nausea and 01/18/23 vomiting #60 tabs prochlorperazine maleate 5 mg 5 mg PO QID PRN nausea and 01/18/23 tablet (Compazine) vomiting #60 tabs diphenoxylate-atropine 2.5 1 tab PO TID PRN diarrhea #60 tabs 03/19/23 mg-0.025 mg tablet (Lomotil) hydrocodone 5 mg-acetaminophen 325 1 - 2 tab PO Q6H PRN Pain #25 tabs 06/14/23 mg tablet Allergies Allergy/AdvReac Type Severity Reaction Status Date / Time chlorhexidine Allergy Severe Verified 06/22/23 09:30 cefaclor Allergy Intermediate Verified 06/22/23 09:30 dextromethorphan Allergy Intermediate dizzyness/difficulty Verified 06/22/23 09:30 [From Tylenol Cold Head breathing Congestion] phenylephrine Allergy Intermediate dizzyness/difficulty Verified 06/22/23 09:30 [From Tylenol Cold Head breathing Congestion] erythromycin base Allergy Mild Verified 06/22/23 09:30 adhesive Allergy Verified 06/22/23 09:30 Penicillins Allergy Verified 06/22/23 09:30 Review of Systems Status of ROS: Reports: 6 or more systems reviewed and unremarkable except as noted in History and below [facility] Medical History (Updated 07/02/23 @ 00:00 by Aicha Yu) Breast cancer ?C50.919 - Malignant neoplasm of unspecified site of unspecified female breast (ICD-10) History of fracture of arm ?Z87.81 - Personal history of (healed) traumatic fracture (ICD-10) Migraine ?G43.909 - Migraine, unspecified, not intractable, without status migrainosus (ICD-10) Asthma ?J45.909 - Unspecified asthma, uncomplicated (ICD-10) Surgical History (Updated 06/15/23 @ 10:04 by Bryson Govea MD) History of tonsillectomy ?Z90.89 - Acquired absence of other organs (ICD-10) Social History (Updated 03/11/23 @ 20:32 by Sharona Moncada APRN) Narrative: 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 [employer] What is your current living situation?: I presently have a place to live In the past 12 months, utilities in danger of being shut off: no In past 12 months, lack of transportation kept you from medical appts, meetings, work, or getting things needed for daily living: no In the past 12 mos, have been you worried that your food would run out before you had money to buy more?: never true In the past 12 mos, the food you bought just didn't last and you didn't have money to buy more?: never true Smoking Status: Never smoker How often do you have a drink containing alcohol: monthly or less Alcohol type: beer, wine and hard liquor How many standard drinks containing alcohol do you have on a typical day: 1 or 2 How often do you have six or more drinks on one occasion: Never AUDIT-C Alcohol total score: 1 Non-prescribed substance use: denies use Caffeine: Yes How often does anyone, including family, friends and others, physically hurt you: never How often does anyone, including family, friends and others, insult or talk down to you: never How often does anyone, including family, friends and others, threaten you with harm: never How often does anyone, including family, friends and others, scream or curse at you: never Are you using contraception or practicing any form of control: No Exam Narrative: Exam Narrative: Soft nonpitting in bilateral lower extremity edema continuing beyond the knees. Both the ankles in particular. Nontender. Negative Homans. No inflammatory changes. Breathing easily. Lungs are clear. Heart in regular rate and rhythm. Const: Vital Signs, click to edit/add: Vital Signs - 24 hr 06/16/23 22:12 Temperature 98.4 F Pulse Rate [Pulse Oximeter] 72 Respiratory Rate 16 Blood Pressure [Ri ght Upper Arm] 135/80 Pulse Oximetry 96 Oxygen Delivery Me thod Room Air Documenting provider has reviewed patient's vital signs: yes Course Vital Signs Vital signs: Initial Vital Signs Temperature 98.4 F 06/16/23 22:12 Temperature Source Temporal Artery Scan 06/16/23 22:12 Pulse Rate 72 06/16/23 22:12 Respiratory Rate 16 06/16/23 22:12 Blood Pressure 135/80 06/16/23 22:12 Blood Pressure Mean 98 06/16/23 22:12 Blood Pressure Position Sitting 06/16/23 22:12 Pulse Oximetry 96 06/16/23 22:12 Oxygen Delivery Method Room Air 06/16/23 22:12 Vital Signs Temperature 98.4 F 06/16/23 22:12 Pulse Rate 72 06/16/23 22:12 Respiratory Rate 16 06/16/23 22:12 Blood Pressure 135/80 06/16/23 22:12 Pulse Oximetry 96 06/16/23 22:12 Oxygen Delivery Method Room Air 06/16/23 22:12 Temperature 98.4 F 06/16/23 22:12 Pulse Rate 72 06/16/23 22:12 Respiratory Rate 16 06/16/23 22:12 Blood Pressure 135/80 06/16/23 22:12 Pulse Oximetry 96 06/16/23 22:12 Oxygen Delivery Method Room Air 06/16/23 22:12 Medical Decision Making MDM Narrative Medical decision making narrative: I did propose more aggressive compression and elevation. Given the bilateral nature and the indolent process I think is less likely that this is any sort of DVT but certainly is a set up for DVT. I do not think this is an issue of poor renal function/dysfunction either. She would like to know for sure that there was no blood clot here and so will be requesting ultrasound Discussed findings with core sticker and see radiology report as below TECHNIQUE: Ultrasound venous duplex bilateral lower extremity. Compression venous exam was performed using garcia-scale, color Doppler, and spectral Doppler analysis. COMPARISON: None. FINDINGS: Deep veins: Sonographic imaging demonstrates the bilateral common femoral, deep femoral, superficial femoral, popliteal, posterior tibial, and peroneal veins to be fully compressible with normal color Doppler blood flow. Superficial veins: Greater saphenous veins are fully compressible. No popliteal cyst. IMPRESSION: No deep venous thrombosis in the evaluated veins of the bilateral lower extremities. Discussed findings with Ms. Hernandez and family. Relieved. Given Paco wraps See patient discharge plan Medical Records Medical records reviewed: Yes I reviewed the patient's medical records Discharge Plan Discharge Clinical Impression: Edema, peripheral Patient Disposition: Home w/ Parent or Adult Condition: Stable Additional Instructions: Try to apply increased compression as discussed, perhaps with these PACO wraps, to your ankles and lower legs; maybe even above your knees a little, whenever you will be resting or with legs down. Elevate your legs at rest as best as you are able. Watch for unilateral swelling, often accompanied by pain and pitting skin with pressure, shortness of breath or chest pain. Prescriptions: No Action albuterol sulfate 90 mcg/actuation aerosol powdr breath activated 2 inh inhalation Q6H PRN Zyrtec 10 mg capsule 10 mg PO QDAY PRN acetaminophen [Tylenol Extra Strength] 500 mg tablet 500 - 1,000 mg PO QID PRN Excedrin Migraine 250-250-65 mg tablet 2 tab PO Q6H PRN prochlorperazine maleate [Compazine] 5 mg tablet 5 mg PO QID PRN (Reason: nausea and vomiting) Qty: 60 0RF ondansetron HCl 4 mg tablet 4 mg PO Q6H PRN (Reason: nausea and vomiting) Qty: 60 0RF diphenhydramine HCl [Benadryl Allergy] 25 mg tablet 25 mg PO Q4-6H PRN hydrocortisone 1 % cream 1 applic topical TID PRN diphenoxylate-atropine [Lomotil] 2.5-0.025 mg tablet 1 tab PO TID PRN (Reason: diarrhea) Qty: 60 0RF loperamide 2 mg capsule 2 mg PO Q6H PRN hydrocodone-acetaminophen 5-325 mg tablet 1 - 2 tab PO Q6H PRN (Reason: Pain) Qty: 25 0RF Rx Instructions: 1 - 2 tab orally as needed Follow Up/Referrals: Sara Javier MD [Primary Care Provider] - Stand Alone Forms: [facility] Info Instructions
--- NOTE | 2023-06-16 22:34 | CRLHL7_ITS ---
For Patients: As a result of the Century Cures Act, medical imaging exams and procedure reports are released immediately into your electronic medical record. You may view this report before your referring provider. If you have questions, please contact your health care provider. INDICATION: EDEMA, HX BREAST CA., MASTECTOMY 06/14/23. TECHNIQUE: Ultrasound venous duplex bilateral lower extremity. Compression venous exam was performed using garcia-scale, color Doppler, and spectral Doppler analysis. COMPARISON: None. FINDINGS: Deep veins: Sonographic imaging demonstrates the bilateral common femoral, deep femoral, superficial femoral, popliteal, posterior tibial, and peroneal veins to be fully compressible with normal color Doppler blood flow. Superficial veins: Greater saphenous veins are fully compressible. No popliteal cyst. IMPRESSION: No deep venous thrombosis in the evaluated veins of the bilateral lower extremities. Dictated by Shoaib Arnold MD @ 06/17/2023 12:20:58 AM (Electronically Signed)
--- NOTE | 2023-06-16 23:52 | PC.NURSE ---
KYLIE wraps applied to bilateral lower extremities. discussed how to wrap legs at home with patient. patient stated understanding to DC instructions and has no further questions
== END 2023-06-17 | disposition home or self-care (01) ==
PROVIDERS: Emergency Provider Family Medicine; PCP Family Medicine
DX: R60.0 Localized edema (principal)
CPT/HCPCS: 93970; 95992; 99283; 99284

== ENCOUNTER 2023-06-20 14:30 | Outpatient (RCR) | payer OTHER, SELFPAY ==
[2023-01-30 11:15] LABS: Basophils Percent Auto 0.5 % (0.0-3.0); Eosinophils Percent Auto 2.1 % (0.0-7.0); Hemoglobin* 13.4 gm/dL (12.0-16.0); Immature Granulocytes Pct Auto 0.2 %; Lymphocytes Percent Auto 20.5 % (20-44); Mean Corpuscular HGB Conc 33 gm/dL (32-36); Mean Corpuscular Hemoglobin 26 pg (26-34); Mean Corpuscular Volume 80 fL (80-100); Monocytes Percent Auto 7.2 % (0.0-11.0); Neutrophils Percent Auto 69.5 % (42.0-72.0); Platelet Count* 317 K/uL (140-440); RDW Coefficient of Variation % 13.8 % (11.5-15.5); White Blood Count* 11.09 K/uL (4.50-11.00)
[2023-01-30 11:26] LABS: Slide Review Reflex No
[2023-01-30 11:28] LABS: Albumin* 4.2 g/dL (3.3-5.0); Chloride* 104 mmol/L (96-114); Sodium* 137 mmol/L (135-149)
[2023-01-30 11:29] LABS: Potassium* 4.2 mmol/L (3.6-5.1)
[2023-01-30 11:31] LABS: Alanine Aminotransferase* 29 U/L (4-35); Alkaline Phosphatase* 89 U/L (40-150); Aspartate Amino Transferase* 41 U/L (12-35); Bilirubin Total* 0.5 mg/dL (0.1-1.5); Blood Urea Nitrogen* 12 mg/dL (5-24); Carbon Dioxide* 24 mmol/L (20-32); Creatinine* 0.6 mg/dL (0.5-1.5); Est. Creatinine Clearance* 100.09; Estimated Glomerular Filt Rate 111 ml/min; Glucose* 140 mg/dL (60-115); Total Protein* 7.4 g/dL (6.0-8.3)
[2023-01-30 11:32] LABS: Calcium* 8.9 mg/dL (8.4-10.6)
--- NOTE | 2023-01-30 14:20 | ONC.NURNOTE ---
I met with patient today for chemotherapy teaching. Contents of the chemotherapy binder were reviewed including side effects of treatment,what to report to MD and how to contact provider. Patient verbalizes understanding.
--- NOTE | 2023-01-30 17:40 | URNOTE ---
Trastuzumab (J9355), Pertuzumab (J9306), Docetaxel (J9171),Carboplatin(J9045), and Pegfilgrastim (J2506) have all been approved 02/01/2023-08/04/2023. Per Gonzalez at [facility], Fosapepitant (J1453) and Palonosetron (J2469) do not require prior authorization. He also states that all of these meds approved are for as much as is needed within this time frame Call Ref #[id number]
[2023-02-01 08:09] VITALS: BP 125/85; PULSE 80; RESP 16; TEMP 36; O2SAT 93
--- NOTE | 2023-02-01 13:35 | ONC.NURNOTE ---
waiting for bone scan results before giving todays treatment. call Tiesha when bone scan is back and ok to treat. She is planning on coming in tomorrow at 8am for her treatment.
--- NOTE | 2023-02-01 14:10 | ONC.NURNOTE ---
Pt. states after Chloroprep for port placement she got a rash up to her neck. she states it was challenging to swallow. she has been taking benadryl since. took benadryl this am. rash is clearing up. state airway feels fine. Dr. Mcconnell here to see pt and ok to treat. per Dr. Mcconnell benadryl prn. cream that is for sensitive skin, no alcohol or fragrent. prn
[2023-02-05 09:54] VITALS: BP 138/89; PULSE 82; RESP 16; TEMP 36.1; O2SAT 95
[2023-02-05] MEDS: PERTUZUMAB 840 MG, TUBING SECONDARY 1 EACH in 0.9 % SODIUM CHLORIDE 250 ml 250 ML 278 MG IV (10:46)
[2023-02-05 13:05] VITALS: BP 174/81; PULSE 62; RESP 18; TEMP 36.8; O2SAT 100
[2023-02-05] MEDS: dexAMETHasone 20 MG in 0.9 % SODIUM CHLORIDE 100 ml 100 ML 408 MG IVPB (13:13)
[2023-02-05 13:22] VITALS: BP 154/97; PULSE 74; RESP 18; O2SAT 100
[2023-02-05] MEDS: ACETAMINOPHEN 325 MG TABLET 650 MG PO (13:28)
[2023-02-05] MEDS: FOSAPREPITANT 150 MG inj 150 MG in 0.9 % SODIUM CHLORIDE 250 ml 250 ML 800 MG IVPB (13:40)
[2023-02-05] MEDS: PALONOSETRON 0.25 MG/5 ML inj IV (13:40)
[2023-02-05 13:52] VITALS: BP 128/86; PULSE 80; RESP 18; TEMP 36.7; O2SAT 97
[2023-02-05] MEDS: diphenhydrAMINE 50 MG/ML inj 25 MG IVP (13:54)
[2023-02-05] MEDS: FAMOTIDINE 10 MG/ML inj 20 MG IVP (13:58)
[2023-02-05 14:13] VITALS: BP 119/79; PULSE 81; RESP 18; TEMP 36.4; O2SAT 98
[2023-02-05 14:38] VITALS: BP 124/82; PULSE 82; RESP 18; TEMP 36.7; O2SAT 96
[2023-02-05] MEDS: [UNRECOGNIZED DRUG - OTHER] IVPB (15:43)
[2023-02-05] MEDS: SODIUM CHLORIDE 0.9% IVPB (15:43)
[2023-02-05] MEDS: DOCETAXEL IVPB (15:43)
--- NOTE | 2023-02-05 16:02 | ONC.NURNOTE ---
Addendum entered by Kavita Burris RN 02/06/23 10:02: Pt tolerated Taxotere and Carboplatin well; dc'd home with friend. Original Note: Pt here for C1D1 PHTC. Tolerated Perjeta over 1 hr well. At 1303, 70 min into 90 min Herceptin, pt reported feeling chilled. Herceptin stopped (1305). Afeb, increased BP @ 174/81, other VSS. Sharona Camacho APRN in room to assess pt;advertising copywriter at bedside. 1315: Pt continues to feel chilled, with teeth chattering. Began 20 mg IV Dex per premeds for TC. 1322: Pt reports VAZQUEZ; teeth chattering almost gone. VSS, BP 154/97. Spring Tier continued to observe pt. 1329: Gave Acetaminophen 650mg x 1. 1344: VAZQUEZ now a migraine; pt notes sensitivity to sound; denies visual disturbances or light sensitivity. She notes she has had migraines since age 8, which she manages with Excedrin to take the edge off. Pt drinking coca cola for caffeine, declined addt'l Tylenol/ibuprofen. Proceeded with Aloxi/Emend. 1352: VSS, pt notes some central chest burning/discomfort. Emend stopped. 1354: Gave Benadryl 25mg IV x 1 and Famotidine 20 mg IV x 1; pt notes throat tightness, squeezing. 1412: VSS 1420: Throat tightness mostly resolved. 1438: VSS. 1448: Restarted Herceptin; completed over 20 min, bud well. Proceeded to complete Emend and begin Taxotere. 30 min into infusion, tolerating well.
[2023-02-05] MEDS: CARBOplatin 750 MG, TUBING SECONDARY 1 EACH in 0.9 % SODIUM CHLORIDE 250 ml 250 ML 650 MG IVPB (16:50)
--- NOTE | 2023-02-07 14:41 | ONC.NURNOTE ---
Pt called to discuss facial flushing, general achiness and T max 99.5. Reviewed these side effects are consistent with her steroid premeds, given previous side effects she's had with oral steroids for asthma. Achiness and low temps can be associated with Neulasta. Recommended pt continue to monitor temp; she notes a slight cough but attributes to smokey air outside; she will monitor for worsening cough. She also notes she does not have nausea; prochlorperazine working well without side effects. She did note some heartburn after lunch today; is using Tums. Reviewed she could try Pepcid or Prilosec OTC if ongoing issue. Pt agreeable to this plan.
--- NOTE | 2023-02-14 16:44 | ONC.NURNOTE ---
message left on breast navigator phone. I called Tiesha. She states decrease appetite. pushing fluids. good urine output, light yellow. Tiesha states food just goes right through me States taking max Imodium a day. States 6 diarrhea stools daily. Talked with Sharona Camacho APRN. Apt made for her to be assessed and poss IVF tomorrow 8am in [facility]. Enc. her to go to ER if worsens before tomorrow am.
[2023-02-15 08:05] VITALS: BP 133/88; PULSE 79; RESP 16; TEMP 36.1; O2SAT 96
[2023-02-15 08:10] VITALS: BP 132/83; PULSE 89
--- NOTE | 2023-02-15 08:33 | ONC.NURNOTE ---
Addendum entered by Glo Holden RN 02/15/23 08:48: Down 5.4 lb from 02/05 Addendum entered by Glo Holden RN 02/15/23 08:45: States had 6 loose stools yesturday with good urine output. Original Note: alert and oriented. slight nausea. states didnt take zofran this am. states up to void x2 last night. voided this am. states had one diarrhea stool when up last night and one this am. states stopped taking Imodium sunday or sunday cause it doesnt help. states taking in lots water and electrolyte liquid with her water. denies rapid heart rate, dizziness or sob. color good . cap. wnl. orthostatics as 133/88-79-14. sitting. 132/83-89-14. standing. steady when up. waiting for electrolytes.
[2023-02-15 08:47] LABS: Albumin* 3.9 g/dL (3.3-5.0)
[2023-02-15 08:48] LABS: Chloride* 102 mmol/L (96-114); Potassium* 3.8 mmol/L (3.6-5.1); Sodium* 137 mmol/L (135-149)
[2023-02-15 08:50] LABS: Aspartate Amino Transferase* 63 U/L (12-35); Bilirubin Total* 0.3 mg/dL (0.1-1.5); Carbon Dioxide* 28 mmol/L (20-32); Creatinine* 0.7 mg/dL (0.5-1.5); Est. Creatinine Clearance* 85.79; Estimated Glomerular Filt Rate 107 ml/min
[2023-02-15 08:51] LABS: Alanine Aminotransferase* 50 U/L (4-35); Alkaline Phosphatase* 141 U/L (40-150); Blood Urea Nitrogen* 7 mg/dL (5-24); Calcium* 8.6 mg/dL (8.4-10.6); Glucose* 156 mg/dL (60-115); Total Protein* 6.8 g/dL (6.0-8.3)
[2023-02-15] MEDS: 0.9 % SODIUM CHLORIDE 1000 ml 1,000 ML IV (09:00)
--- NOTE | 2023-02-15 10:33 | ONC.NURNOTE ---
Instructions given by Sharona on Imodium and Lomotil self admin. Patient discharged with friend after receiving 1L NS
[2023-02-26 08:17] LABS: Basophils Absolute Auto 0.08 K/uL (0.00-0.30); Basophils Percent Auto 1.4 % (0.0-3.0); Eosinophils Absolute Auto 0.17 K/uL (0.00-0.50); Eosinophils Percent Auto 2.9 % (0.0-7.0); Hematocrit 36.8 % (33.0-51.0); Hemoglobin* 11.8 gm/dL (12.0-16.0); Lymphocytes Absolute Auto 1.39 K/uL (0.90-2.90); Lymphocytes Percent Auto 23.8 % (20-44); Mean Corpuscular HGB Conc 32 gm/dL (32-36); Mean Corpuscular Hemoglobin 27 pg (26-34); Mean Corpuscular Volume 83 fL (80-100); Monocytes Percent Auto 13.5 % (0.0-11.0); Neutrophils Absolute Auto 3.41 K/uL (1.7-7.0); Neutrophils Percent Auto 58.4 % (42.0-72.0); Platelet Count* 253 K/uL (140-440); RDW Coefficient of Variation % 15.1 % (11.5-15.5); Red Blood Count 4.44 m/uL (4.00-5.20); White Blood Count* 5.84 K/uL (4.50-11.00)
[2023-02-26 08:32] LABS: Albumin* 3.6 g/dL (3.3-5.0); Chloride* 107 mmol/L (96-114); Sodium* 139 mmol/L (135-149)
[2023-02-26 08:34] LABS: Creatinine* 0.6 mg/dL (0.5-1.5); Estimated Glomerular Filt Rate 111 ml/min
[2023-02-26 08:35] LABS: Alanine Aminotransferase* 38 U/L (4-35); Alkaline Phosphatase* 81 U/L (40-150); Anion Gap 6 mEq/L (7-15); Aspartate Amino Transferase* 52 U/L (12-35); Bilirubin Total* 0.5 mg/dL (0.1-1.5); Blood Urea Nitrogen* 13 mg/dL (5-24); Calcium* 9.1 mg/dL (8.4-10.6); Carbon Dioxide* 26 mmol/L (20-32); Glucose* 157 mg/dL (60-115); Total Protein* 6.4 g/dL (6.0-8.3)
[2023-02-26 08:44] LABS: Slide Review Reflex No
[2023-02-26] MEDS: dexAMETHasone 20 MG in 0.9 % SODIUM CHLORIDE 100 ml 100 ML 408 MG IVPB (10:14)
[2023-02-26] MEDS: PALONOSETRON 0.25 MG/5 ML inj IV (10:14)
[2023-02-26] MEDS: diphenhydrAMINE 25 MG in 0.9 % SODIUM CHLORIDE 100 ml 100 ML 402 MG IVPB (10:34)
[2023-02-26] MEDS: FAMOTIDINE 10 MG/ML inj 20 MG IVP (10:34)
[2023-02-26] MEDS: FOSAPREPITANT 150 MG inj 150 MG in 0.9 % SODIUM CHLORIDE 250 ml 250 ML 800 MG IVPB (10:53)
[2023-02-26] MEDS: PERTUZUMAB 420 MG, TUBING SECONDARY 1 EACH in 0.9 % SODIUM CHLORIDE 250 ml 250 ML 528 MG IV (11:25)
[2023-02-26] MEDS: DOCETAXEL IVPB (13:17)
[2023-02-26] MEDS: [UNRECOGNIZED DRUG - OTHER] IVPB (13:17)
[2023-02-26] MEDS: SODIUM CHLORIDE 0.9% IVPB (13:17)
[2023-02-26] MEDS: CARBOplatin 750 MG, TUBING SECONDARY 1 EACH in 0.9 % SODIUM CHLORIDE 250 ml 250 ML 650 MG IVPB (14:33)
[2023-03-19 08:05] LABS: Basophils Absolute Auto 0.04 K/uL (0.00-0.30); Basophils Percent Auto 0.6 % (0.0-3.0); Eosinophils Absolute Auto 0.02 K/uL (0.00-0.50); Eosinophils Percent Auto 0.3 % (0.0-7.0); Hematocrit 35.8 % (33.0-51.0); Hemoglobin* 11.9 gm/dL (12.0-16.0); Lymphocytes Absolute Auto 1.76 K/uL (0.90-2.90); Lymphocytes Percent Auto 26.2 % (20-44); Mean Corpuscular HGB Conc 33 gm/dL (32-36); Mean Corpuscular Hemoglobin 27 pg (26-34); Mean Corpuscular Volume 82 fL (80-100); Monocytes Percent Auto 10.7 % (0.0-11.0); Neutrophils Absolute Auto 4.17 K/uL (1.7-7.0); Neutrophils Percent Auto 62.2 % (42.0-72.0); Platelet Count* 216 K/uL (140-440); RDW Coefficient of Variation % 16.8 % (11.5-15.5); Red Blood Count 4.39 m/uL (4.00-5.20); White Blood Count* 6.71 K/uL (4.50-11.00)
[2023-03-19 08:10] LABS: Slide Review Reflex No
[2023-03-19 08:19] LABS: Albumin* 3.9 g/dL (3.3-5.0); Chloride* 107 mmol/L (96-114); Potassium* 3.9 mmol/L (3.6-5.1); Sodium* 137 mmol/L (135-149)
[2023-03-19 08:22] LABS: Alanine Aminotransferase* 36 U/L (4-35); Alkaline Phosphatase* 97 U/L (40-150); Anion Gap 4 mEq/L (7-15); Aspartate Amino Transferase* 53 U/L (12-35); Bilirubin Total* 0.6 mg/dL (0.1-1.5); Blood Urea Nitrogen* 11 mg/dL (5-24); Carbon Dioxide* 26 mmol/L (20-32); Creatinine* 0.7 mg/dL (0.5-1.5); Estimated Glomerular Filt Rate 107 ml/min; Glucose* 152 mg/dL (60-115); Total Protein* 6.8 g/dL (6.0-8.3)
[2023-03-19 08:23] LABS: Calcium* 9.5 mg/dL (8.4-10.6)
[2023-03-19] MEDS: PALONOSETRON 0.25 MG/5 ML inj IV (09:53)
[2023-03-19] MEDS: FAMOTIDINE 10 MG/ML inj 20 MG IVP (09:53)
[2023-03-19] MEDS: dexAMETHasone 20 MG in 0.9 % SODIUM CHLORIDE 100 ml 100 ML 408 MG IVPB (09:53)
[2023-03-19] MEDS: diphenhydrAMINE 25 MG in 0.9 % SODIUM CHLORIDE 100 ml 100 ML 402 MG IVPB (10:18)
[2023-03-19] MEDS: FOSAPREPITANT 150 MG inj 150 MG in 0.9 % SODIUM CHLORIDE 250 ml 250 ML 510 MG IVPB (10:37)
[2023-03-19] MEDS: PERTUZUMAB 420 MG, TUBING SECONDARY 1 EACH in 0.9 % SODIUM CHLORIDE 250 ml 250 ML 528 MG IV (11:07)
[2023-03-19] MEDS: CARBOplatin 750 MG, TUBING SECONDARY 1 EACH in 0.9 % SODIUM CHLORIDE 250 ml 250 ML 650 MG IVPB (12:57)
[2023-03-19] MEDS: HEPARIN 500 UNIT/5 ML SYRINGE IVF (13:50)
[2023-03-23 09:18] VITALS: BP 128/84; PULSE 77; RESP 16; TEMP 35.7; O2SAT 95
[2023-03-23] MEDS: SODIUM CHLORIDE 0.9 % (FLUSH) 10 ML SYRINGE IVF (10:35)
[2023-03-23] MEDS: HEPARIN 500 UNIT/5 ML SYRINGE IVF (10:35)
[2023-04-09] MEDS: ALTEPLASE 2 MG INJ IVF (09:16)
[2023-04-09 09:32] LABS: Albumin* 3.9 g/dL (3.3-5.0); Chloride* 107 mmol/L (96-114); Potassium* 3.8 mmol/L (3.6-5.1); Sodium* 141 mmol/L (135-149)
[2023-04-09 09:34] LABS: Creatinine* 0.5 mg/dL (0.5-1.5); Est. Creatinine Clearance* 123.82; Estimated Glomerular Filt Rate 116 ml/min
[2023-04-09 09:35] LABS: Alanine Aminotransferase* 37 U/L (4-35); Alkaline Phosphatase* 102 U/L (40-150); Anion Gap 11 mEq/L (7-15); Aspartate Amino Transferase* 49 U/L (12-35); Bilirubin Total* 0.4 mg/dL (0.1-1.5); Blood Urea Nitrogen* 8 mg/dL (5-24); Carbon Dioxide* 23 mmol/L (20-32); Glucose* 161 mg/dL (60-115); Total Protein* 6.7 g/dL (6.0-8.3)
[2023-04-09 09:36] LABS: Calcium* 8.8 mg/dL (8.4-10.6)
[2023-04-09 10:14] LABS: Basophils Percent Auto 0.5 % (0.0-3.0); Eosinophils Percent Auto 1.2 % (0.0-7.0); Hematocrit 38.9 % (33.0-51.0); Hemoglobin* 12.7 gm/dL (12.0-16.0); Lymphocytes Percent Auto 33.2 % (20-44); Mean Corpuscular HGB Conc 33 gm/dL (32-36); Mean Corpuscular Hemoglobin 28 pg (26-34); Mean Corpuscular Volume 86 fL (80-100); Monocytes Percent Auto 8.5 % (0.0-11.0); Neutrophils Percent Auto 56.6 % (42.0-72.0); Platelet Count* 125 K/uL (140-440); RDW Coefficient of Variation % 17.5 % (11.5-15.5); Red Blood Count 4.54 m/uL (4.00-5.20); White Blood Count* 4.34 K/uL (4.50-11.00)
[2023-04-09 10:15] LABS: Slide Review Reflex No
[2023-04-09] MEDS: 0.9 % SODIUM CHLORIDE 250 ml IV (10:40)
[2023-04-09] MEDS: SODIUM CHLORIDE 0.9 % (FLUSH) 10 ML SYRINGE IVF ×3 (10:49→15:45)
[2023-04-09] MEDS: dexAMETHasone 20 MG in 0.9 % SODIUM CHLORIDE 100 ml 100 ML 420 MG IVPB (11:03)
[2023-04-09] MEDS: PALONOSETRON 0.25 MG/5 ML inj IV (11:03)
[2023-04-09] MEDS: FOSAPREPITANT 150 MG inj 150 MG in 0.9 % SODIUM CHLORIDE 250 ml 250 ML 780 MG IVPB (11:21)
[2023-04-09] MEDS: diphenhydrAMINE 25 MG, FAMOTIDINE 20 MG in 0.9 % SODIUM CHLORIDE 100 ml 100 ML 420 MG IVPB (11:45)
[2023-04-09] MEDS: PERTUZUMAB 420 MG, TUBING SECONDARY 1 EACH in 0.9 % SODIUM CHLORIDE 250 ml 250 ML 528 MG IV (12:06)
[2023-04-09] MEDS: DOCEtaxeL 135 MG, TUBING SECONDARY 1 EACH in 0.9 % SODIUM CHL 250 ml Excel 250 ML 256.75 MG IVPB (13:59)
[2023-04-09] MEDS: CARBOplatin 750 MG, TUBING SECONDARY 1 EACH in 0.9 % SODIUM CHLORIDE 250 ml 250 ML 650 MG IVPB (15:08)
[2023-04-09] MEDS: HEPARIN 500 UNIT/5 ML SYRINGE IVF (15:44)
[2023-04-13 09:40] VITALS: BP 136/83; PULSE 100; RESP 16; TEMP 37.1; O2SAT 97
[2023-04-13] MEDS: 0.9 % SODIUM CHLORIDE 1000 ml 1,000 ML IV (10:15)
[2023-04-13] MEDS: SODIUM CHLORIDE 0.9 % (FLUSH) 10 ML SYRINGE IVF (11:20)
[2023-04-13] MEDS: HEPARIN 500 UNIT/5 ML SYRINGE IVF (11:20)
[2023-04-30 08:12] LABS: Basophils Absolute Auto 0.05 K/uL (0.00-0.30); Basophils Percent Auto 0.9 % (0.0-3.0); Hematocrit 35.1 % (33.0-51.0); Hemoglobin* 11.6 gm/dL (12.0-16.0); Lymphocytes Absolute Auto 1.53 K/uL (0.90-2.90); Lymphocytes Percent Auto 28.4 % (20-44); Mean Corpuscular HGB Conc 33 gm/dL (32-36); Mean Corpuscular Hemoglobin 29 pg (26-34); Mean Corpuscular Volume 89 fL (80-100); Monocytes Percent Auto 14.5 % (0.0-11.0); Neutrophils Absolute Auto 3.02 K/uL (1.7-7.0); Neutrophils Percent Auto 56.2 % (42.0-72.0); Platelet Count* 154 K/uL (140-440); RDW Coefficient of Variation % 18.4 % (11.5-15.5); Red Blood Count 3.96 m/uL (4.00-5.20); White Blood Count* 5.38 K/uL (4.50-11.00)
[2023-04-30 08:14] LABS: Slide Review Reflex No
[2023-04-30 08:29] LABS: Albumin* 3.8 g/dL (3.3-5.0); Chloride* 109 mmol/L (96-114); Potassium* 3.7 mmol/L (3.6-5.1); Sodium* 138 mmol/L (135-149)
[2023-04-30 08:31] LABS: Anion Gap 6 mEq/L (7-15); Bilirubin Total* 0.6 mg/dL (0.1-1.5); Carbon Dioxide* 23 mmol/L (20-32); Creatinine* 0.6 mg/dL (0.5-1.5); Est. Creatinine Clearance* 103.18; Estimated Glomerular Filt Rate 111 ml/min
[2023-04-30 08:32] LABS: Alanine Aminotransferase* 32 U/L (4-35); Alkaline Phosphatase* 89 U/L (40-150); Aspartate Amino Transferase* 55 U/L (12-35); Blood Urea Nitrogen* 13 mg/dL (5-24); Calcium* 8.9 mg/dL (8.4-10.6); Glucose* 140 mg/dL (60-115); Total Protein* 6.7 g/dL (6.0-8.3)
[2023-04-30] MEDS: 0.9 % SODIUM CHLORIDE 250 ml IV (09:20)
[2023-04-30] MEDS: dexAMETHasone 20 MG in 0.9 % SODIUM CHLORIDE 100 ml 100 ML 420 MG IVPB (09:56)
[2023-04-30] MEDS: diphenhydrAMINE 25 MG, FAMOTIDINE 20 MG in 0.9 % SODIUM CHLORIDE 100 ml 100 ML 402 MG IVPB (10:14)
[2023-04-30] MEDS: PERTUZUMAB 420 MG, TUBING SECONDARY 1 EACH in 0.9 % SODIUM CHLORIDE 250 ml 250 ML 528 MG IV (10:34)
[2023-05-21 09:31] LABS: Basophils Absolute Auto 0.02 K/uL (0.00-0.30); Basophils Percent Auto 0.3 % (0.0-3.0); Eosinophils Absolute Auto 0.27 K/uL (0.00-0.50); Eosinophils Percent Auto 4.4 % (0.0-7.0); Hematocrit 35.6 % (33.0-51.0); Lymphocytes Absolute Auto 1.62 K/uL (0.90-2.90); Lymphocytes Percent Auto 26.5 % (20-44); Mean Corpuscular HGB Conc 34 gm/dL (32-36); Mean Corpuscular Hemoglobin 30 pg (26-34); Mean Corpuscular Volume 89 fL (80-100); Neutrophils Absolute Auto 3.72 K/uL (1.7-7.0); Neutrophils Percent Auto 60.8 % (42.0-72.0); Platelet Count* 130 K/uL (140-440); RDW Coefficient of Variation % 14.9 % (11.5-15.5); White Blood Count* 6.12 K/uL (4.50-11.00)
[2023-05-21 09:41] LABS: Slide Review Reflex No
[2023-05-21 09:44] LABS: Albumin* 4.1 g/dL (3.3-5.0); Chloride* 106 mmol/L (96-114)
[2023-05-21 09:45] LABS: Potassium* 3.9 mmol/L (3.6-5.1); Sodium* 138 mmol/L (135-149)
[2023-05-21 09:47] LABS: Alanine Aminotransferase* 31 U/L (4-35); Alkaline Phosphatase* 92 U/L (40-150); Anion Gap 8 mEq/L (7-15); Aspartate Amino Transferase* 38 U/L (12-35); Bilirubin Total* 0.6 mg/dL (0.1-1.5); Blood Urea Nitrogen* 17 mg/dL (5-24); Carbon Dioxide* 24 mmol/L (20-32); Creatinine* 0.6 mg/dL (0.5-1.5); Est. Creatinine Clearance* 103.18; Estimated Glomerular Filt Rate 111 ml/min; Total Protein* 6.8 g/dL (6.0-8.3)
[2023-05-21 09:48] LABS: Calcium* 8.9 mg/dL (8.4-10.6); Glucose* 163 mg/dL (60-115)
[2023-05-21] MEDS: PALONOSETRON 0.25 MG/5 ML inj IV (11:19)
[2023-05-21] MEDS: SODIUM CHLORIDE 0.9 % (FLUSH) 10 ML SYRINGE IVF (11:21)
[2023-05-21] MEDS: 0.9 % SODIUM CHLORIDE 250 ml IV (11:21)
[2023-05-21] MEDS: dexAMETHasone 20 MG in 0.9 % SODIUM CHLORIDE 100 ml 100 ML 408 MG IVPB (11:50)
[2023-05-21] MEDS: diphenhydrAMINE 25 MG in 0.9 % SODIUM CHLORIDE 100 ml 100 ML 402 MG IVPB (12:19)
[2023-05-21] MEDS: FAMOTIDINE 10 MG/ML inj 20 MG IVP (12:22)
[2023-05-21] MEDS: FOSAPREPITANT 150 MG inj 150 MG in 0.9 % SODIUM CHLORIDE 250 ml 250 ML 800 MG IVPB (12:38)
[2023-05-21] MEDS: PERTUZUMAB 420 MG, TUBING SECONDARY 1 EACH in 0.9 % SODIUM CHLORIDE 250 ml 250 ML 528 MG IV (13:04)
[2023-05-25 10:00] VITALS: BP 119/72; BP 94/66; PULSE 111; PULSE 89; RESP 16; TEMP 36.1; O2SAT 97
[2023-05-25] MEDS: 0.9 % SODIUM CHLORIDE 1000 ml 1,000 ML IV (10:30)
[2023-05-25] MEDS: SODIUM CHLORIDE 0.9 % (FLUSH) 10 ML SYRINGE IVF (12:24)
[2023-05-25] MEDS: HEPARIN 500 UNIT/5 ML SYRINGE IVF (14:33)
--- NOTE | 2023-05-25 14:42 | ONC.NURNOTE ---
states voiding ok. trying to eat when can. decreased taste and little nausea. slight constipation at times. bone pain from neulasta.
== END 2023-07-17 23:59 | disposition home or self-care (01) ==
LOC: CCIC 14:30
PROVIDERS: PCP Family Medicine; Referring Provider Family Medicine; Visit Provider Internal Medicine Hematology & Oncology
DX: C50.912 Malignant neoplasm of unspecified site of left female breast (principal); Z17.0 Estrogen receptor positive status [ER+]; K52.1 Toxic gastroenteritis and colitis; T45.1X5A Adverse effect of antineoplastic and immunosuppressive drugs, initial encounter; Z90.13 Acquired absence of bilateral breasts and nipples
CPT/HCPCS: 36415; 36591; 70553; 78306; 80053; 85025; 96360; 96376; 96377; 96413; 96415; 96417; 99202; 99205; 99211; 99212; 99214; 99215; J2506; A9270; A9503; A9575; J1100; J1200; J1453; J1642; J2469; J2997; J7030; J7050; J9045; J9171; J9306; J9355; S0028

== ENCOUNTER 2023-09-05 13:17 | Outpatient (CLI) | payer OTHER, SELFPAY ==
--- NOTE | 2023-09-05 13:30 | XR_ITS ---
Patient: RACHAEL MARTINEZ Facility:?[facility] Patient ID:?[id number] Site Patient ID:?[id number]. Site :?[id number] Study:?DEXA-Bone Density SPINE/BOTH HIPS-09/05/2023 1:44:04 PM Ordering Physician:KINDRA Final Report: DXA BONE MINERAL DENSITY STUDY Current height (in): 64.5. Weight (lb): 230.0. Menopause age: N/A. Ethnicity: White. Reason for exam: Acquired absence of bilateral breasts and nipples, cardiotoxic chemo, screening. 1. Have you had a previous hip or vertebral fracture? No. 2. Have you had any fractures during your adult life which did not result from significant trauma (e.g., auto accident)? No. 3. Did either of your parents have a hip fracture? No. 4. Do you smoke? No. 5. Have you ever taken Glucocorticoids? No. 6. Do you have rheumatoid arthritis? No. 7. Do you have secondary osteoporosis? No. 8. Do you drink 3 or more alcoholic drinks per day? No. 9. Are you being treated for osteoporosis? No. 10. Have you ever taken any of the following medications: Actonel, Evista, Fosamax, Miacalcin, Reclast, Boniva, Forteo, HRT (i.e. estrogen/hormone therapy), Protelos, Prolia, Vitamin D, Calcium, other ? please specify. ANSWER: No. 11. Do you have any of the following medical conditions: Anorexia or bulimia, asthma or emphysema, end stage renal disease, hyperparathyroidism, any seizure disorders, cancer, inflammatory bowel diseases, hysterectomy, other ? please specify. ANSWER: Yes, asthma or emphysema, cancer. 12. What was your maximum height (inches)? 64.5. 13. Do you perform weight bearing exercise regularly? Yes. 14. Do you regularly consume dairy products? Yes. 15. Do you drink caffeinated beverages? Yes. 16. At what age did your period start? 13. 17. Are you premenopausal? Yes. 18. How many full term pregnancies have you had? 0. 19. Have you ever missed your period for more than 6 months in a row (not including or menopause)? Yes. TECHNIQUE: Bone mineral density study was performed using the [employer]. FINDINGS: The results of the study expressed as bone mineral density (BMD) are as follows: Lumbar spine L1 to L4: BMD: 1.041 g/cm2. Z-score: 0.6. Neck Left: BMD: 0.683 g/cm2. Z-score: -0.9. Right: BMD: 0.667 g/cm2. Z-score: -1.0. Total Left: BMD: 0.988 g/cm2. Z-score: 0.8. Right: BMD: 0.944 g/cm2. Z-score: 0.4. IMPRESSION: Normal bone density. Prashant White M.D. Diagnostic Radiologist [email or web address] DSM/mariiaw: D& Transcribed: 11:19 am DW/Dictated by: Prashant White MD @ 09/06/2023 8:24:00 AM Signed by:?Prashant White MD @09/06/2023 12:07:49 PM (Electronic Signature)
== END 2023-09-05 13:18 | disposition home or self-care (01) ==
PROVIDERS: PCP Family Medicine; Visit Provider Internal Medicine Hematology & Oncology
DX: C50.919 Malignant neoplasm of unspecified site of unspecified female breast (principal); Z51.11 Encounter for antineoplastic chemotherapy; Z90.13 Acquired absence of bilateral breasts and nipples
CPT/HCPCS: 77080; 93306

== ENCOUNTER 2024-01-04 09:17 | Outpatient (CLI) | payer OTHER, SELFPAY ==
--- OUTSIDE RECORDS SUMMARY | 2024-01-04 09:24 | XMS_ITS ---
Author Organization [facility] Address [address] [place] [address] Care Team Providers Care Instrument Technologist Name Role Phone Unavailable Unavailable Unavailable Surgery Details Not on file Complications Check Surgery Details section. Procedure Estimated Blood Loss Check Surgery Details section. Procedure Findings Check Surgery Details section. Procedure Specimens Taken Check Surgery Details section.
--- OUTSIDE RECORDS SUMMARY | 2024-01-04 09:24 | XMS_ITS | Referral Summary ---
Author Organization [facility] Address [address] [place] [address] Care Team Providers Care Sonography Technologist Name Role Phone Unavailable Primary Care Provider Unavailabl e Source Comments Patient records contain information from all sites at [facility]. For routine questions regarding patient records, call [phone] during business hours, M-F 8:00 AM - 5:00 PM Central Time. Record requests for emergency care only can be directed to [phone] at any time.[facility] Encounters Date Type Department Care Team Description 10/24/2023 Documentation Department of Radiation Oncology in [address] [address] Jennifer Lebron M.D. 10/24/2023 2:22 PM CDT - 10/24/2023 11:59 PM CDT Hospital Encounter Department of Radiation Oncology in [address] [address] Jennifer Lebron M.D. Discharge Disposition: Home or Self Care 10/23/2023 2:25 PM CDT - 10/23/2023 4:53 PM CDT Hospital Encounter Department of Radiation Oncology in [address] [address] Jennifer Lebron M.D. Malignant Neoplasm Of Breast Female Left (HCC) 10/23/2023 2:24 PM CDT Hospital Encounter Department of Radiation Oncology in [address] [address] Jennifer Lebron M.D. Discharge Disposition: Home or Self Care 10/22/2023 2:17 PM CDT - 10/22/2023 11:59 PM CDT Hospital Encounter Department of Radiation Oncology in [address] [address] Jennifer Lebron M.D. Discharge Disposition: Home or Self Care 10/19/2023 2:20 PM CDT - 10/19/2023 11:59 PM CDT Hospital Encounter Department of Radiation Oncology in [address] [address] Jennifer Lebron M.D. Discharge Disposition: Home or Self Care 10/18/2023 2:16 PM CDT - 10/18/2023 11:59 PM CDT Hospital Encounter Department of Radiation Oncology in [address] [address] Jennifer Lebron M.D. Discharge Disposition: Home or Self Care 10/17/2023 2:20 PM CDT - 10/17/2023 11:59 PM CDT Hospital Encounter Department of Radiation Oncology in [address] [address] Jennifer Lebron M.D. Discharge Disposition: Home or Self Care 10/16/2023 2:19 PM CDT - 10/17/2023 10:13 AM CDT Hospital Encounter Department of Radiation Oncology in [address] [address] Jennifer Lebron M.D. Malignant Neoplasm Of Breast Female Left (HCC) 10/16/2023 2:18 PM CDT Hospital Encounter Department of Radiation Oncology in [address] [address] Jennifer Lebron M.D. Discharge Disposition: Home or Self Care 10/15/2023 2:22 PM CDT - 10/15/2023 3:21 PM CDT Hospital Encounter Department of Radiation Oncology in [address] [address] Jennifer Lebron M.D. Grieman, Kari A, R.N. Malignant Neoplasm Of Breast Female Left (HCC) (Primary Dx) 10/15/2023 2:21 PM CDT Hospital Encounter Department of Radiation Oncology in [address] [address] Jennifer Lebron M.D. Discharge Disposition: Home or Self Care 10/12/2023 2:20 PM CDT - 10/12/2023 11:59 PM CDT Hospital Encounter Department of Radiation Oncology in [address] [address] Jennifer Lebron M.D. Discharge Disposition: Home or Self Care 10/11/2023 2:18 PM CDT - 10/11/2023 11:59 PM CDT Hospital Encounter Department of Radiation Oncology in [address] [address] Jennifer Lebron M.D. Discharge Disposition: Home or Self Care 10/10/2023 2:21 PM CDT - 10/10/2023 11:59 PM CDT Hospital Encounter Department of Radiation Oncology in [address] [address] Jennifer Lebron M.D. Discharge Disposition: Home or Self Care 10/09/2023 2:20 PM CDT - 10/09/2023 5:46 PM CDT Hospital Encounter Department of Radiation Oncology in [address] [address] Jennifer Lebron M.D. Malignant Neoplasm Of Breast Female Left (HCC) 10/09/2023 2:20 PM CDT - 10/09/2023 11:59 PM CDT Hospital Encounter Department of Radiation Oncology in [address] [address] Jennifer Lebron M.D. Discharge Disposition: Home or Self Care 10/01/2023 2:14 PM CDT - 10/09/2023 11:19 AM CDT Hospital Encounter Department of Radiation Oncology in [address] [address] Jennifer Lebron M.D. Kozelsky, Timothy F, M.D. Malignant Neoplasm Of Breast Female Left (HCC) 10/08/2023 10:21 AM CDT - 10/08/2023 11:59 PM CDT Hospital Encounter Department of Radiation Oncology in [address] [address] Jennifer Lebron M.D. Discharge Disposition: Home or Self Care 10/05/2023 2:18 PM CDT - 10/05/2023 11:59 PM CDT Hospital Encounter Department of Radiation Oncology in [address] [address] Jennifer Lebron M.D. Discharge Disposition: Home or Self Care from Last 3 Months Allergies Active Allergy Reactions Criticality Noted Date Comments Adhesive Other (see comments) 06/20/2023 Cefaclor Rash High 06/26/2006 hives Chlorhexidine Hives (Reselect Reaction),Itching High 05/22/2023 rash, airway Clindamycin Other (see comments) 09/13/2023 Throat pain Cna-Iplnssdmb-Ht-Acetamino phen Headache 06/26/2006 Dextromethorphan Other (see comments) High Erythromycin GI intolerance 06/26/2006 Penicillins Other (see comments) 06/26/2006 Phenylephrine Other (see comments) High 06/20/2023 Medications Medication Sig Dispensed Refills Start Date End Date Status albuterol 90 mcg/actuation inhaler Inhale. 08/01/2006 Active acetaminophen (TYLENOL) 500 mg capsule Take 1,000 mg by mouth every 6 (six) hours as needed. Active ondansetron (ZOFRAN) 4 mg tablet Take 2 mg by mouth every 8 (eight) hours as needed. Active mometasone (ELOCON) 0.1 % cream Apply 1 Application topically daily. Apply to skin within the treatment field. 45 g 09/13/2023 Active Active Problems Problem Noted Date Diagnosed Date Malignant Neoplasm Of Breast Female Left 023 Cancer Staging:Clinical stage from 01/01/2023:Stage IB(cT2, cN1, cM0, G3, ER+, VT+, HER2+) - Unsigned Pathologic stage from 06/14/2023: ypT2, pN0(sn), cM0, G2, ER+, VT+, HER2+ - Unsigned Social History Tobacco Use Types Packs/Day Years Used Date Smoking Tobacco: Never Smokeless Tobacco: Never Tobacco Cessation:Counseling Given: Not Answered Alcohol Use Standard Drinks/Week Comments Not Currently 0 (1 standard drink = 0.6 oz pur e alcohol) [facility] [employer] Answer Date Recorded In the past 12 months has th e [employer], gas, oil, or water [employer] threatened to shut off services in your home? No 09/09/2023 Exercise Vital Sign Answer Date Recorde d On average, how many days pe r week do you engage in moderate to strenuous exercise (like a brisk walk)? 3 days 09/09/2023 On average, how many minutes do you engage in exercise at this level? 20 min 09/09/2023 Hunger Vital Sign Answer Date Recorded Within the past 12 months, y ou worried that your food would run out before you got the money to buy more. Never true 09/09/19 24 Within the past 12 months, t he food you bought just didn't last and you didn't have money to get more. Never true 09/09/2023 PRAPARE - Transportation Answer Date Re corded In the past 12 months, has l ack of transportation kept you from medical appointments or from getting medications? No 08/30 In the past 12 months, has l ack of transportation kept you from meetings, work, or from getting things needed for daily living? No 09/09/2023 Nutrition Answer Date Recorded Nutrition: EVOO Fat Source Unknown 09/08 On average, how many serving s of fruits and vegetables do you eat per day (serving size is equal to 1 cup or approximately the size of a tennis ball)? 0-2 09/09/2023 Dental Answer Date Recorded Dental: Regular Dentist Yes 09/09/19 Employment Answer Date Recorded Employment status Working with temporary restric tions 09/09/2023 Housing Stability Answer Date Recorded What is your living situation today? I have a [facility] place to live 09/09/2023 Sex and Gender Information Value Date Recorded Sex Assigned at Female 07/04/2023 4:23 PM ELEVATOR MECHANIC APPRENTICE Gender Identity Female 07/04/2023 4:23 PM ELEVATOR MECHANIC APPRENTICE Sexual Orientation Straight 07/04/2023 4: 23 PM ELEVATOR MECHANIC APPRENTICE Last Filed Vital Signs Vital Sign Reading Time Taken Comments Blood Pressure 149/81 09/13/2023 10:51 AM CDT Pulse 73 09/13/2023 10:51 AM CDT Temperature 36.7 ??C (98.1 ??F) 10/23/2023 2:50 PM CD T Respiratory Rate - - Oxygen Saturation - - Inhaled Oxygen Concentration - - Weight 106 kg (233 lb 14.5 oz) 10/23/2023 2:50 P M CDT Height - - Body Mass Index - - Plan of Treatment Not on file Procedures Procedure Name Priority Date/Time Associated Diagnosis Comments ARIA COURSE COMPLETE TREATMENT INFORMATION Routine 10/24/2023 2:56 PM CDT ARIA DAILY TREATMENT INFORMATION Routine 10/24/2023 2:56 PM CDT ARIA DAILY TREATMENT INFORMATION Routine 10/23/2023 2:42 PM CDT ARIA DAILY TREATMENT INFORMATION Routine 10/22/2023 2:36 PM CDT ARIA DAILY TREATMENT INFORMATION Routine 10/19/2023 2:43 PM CDT ARIA DAILY TREATMENT INFORMATION Routine 10/18/2023 2:37 PM CDT ARIA DAILY TREATMENT INFORMATION Routine 10/17/2023 2:45 PM CDT ARIA DAILY TREATMENT INFORMATION Routine 10/16/2023 2:38 PM CDT ARIA DAILY TREATMENT INFORMATION Routine 10/15/2023 2:46 PM CDT ARIA DAILY TREATMENT INFORMATION Routine 10/12/2023 2:38 PM CDT ARIA DAILY TREATMENT INFORMATION Routine 10/11/2023 2:45 PM CDT ARIA DAILY TREATMENT INFORMATION Routine 10/10/2023 2:42 PM CDT ARIA DAILY TREATMENT INFORMATION Routine 10/09/2023 2:44 PM CDT ARIA DAILY TREATMENT INFORMATION Routine 10/08/2023 10:55 AM CDT ARIA DAILY TREATMENT INFORMATION Routine 10/05/2023 2:38 PM CDT OUTSIDE MG MAMMOGRAM Routine 06/14/2023 9:05 AM ELEVATOR MECHANIC APPRENTICE from Last 3 Months or Most Recently Relevant to Health Maintenance Results * Aria Course Complete Treatment Information (10/24/2023 2:56 PM CDT) Course ID 1xBreast CHÁVEZ ARIA Course Start Date 4 13:01 CDT CHÁVEZ ARIA Course End Date 4 13:11 CDT CHÁVEZ ARIA First Treatment Date 4 11:45 CDT CHÁVEZ ARIA Last Treatment Date 4 14:56 CDT CHÁVEZ ARIA Treatment Elapsed Days 34 CHÁVEZ ARIA Reference Point [id number] CHÁVEZ ARIA Dosage Given to Date cGy 5000 CHÁVEZ ARIA Plan ID [id number] L CHÁVEZ ARIA Fractions Treated to Date 8 CHÁVEZ ARIA Planned Total Fractions 8 CHÁVEZ ARIA Prescribed Dose Per Fraction 200 CHÁVEZ ARIA Prescription Dose in cGy 1600 CHÁVEZ ARIA Plan Primary Reference Point [id number] CHÁVEZ ARIA Plan ID [id number] CHÁVEZ ARIA Fractions Treated to Date 17 CHÁVEZ ARIA Planned Total Fractions 17 CHÁVEZ ARIA Prescribed Dose Per Fraction 200 CHÁVEZ ARIA Prescription Dose in cGy 3400 CHÁVEZ ARIA Plan Primary Reference Point [id number] CHÁVEZ ARIA 10/24/2023 2:56 PM CDT Provider Not In System RADIATION ONCOLOG Y ORDERABLES Performing Organization Address City/[facility] Co de Phone Number KYLER YOO na * Aria Daily Treatment Information (10/24/2023 2:56 PM CDT) Only the most recent of14 resultswithin the time period is included. Course ID 1xBreast CHÁVEZ ARIA Course Start Date 4 13:01 CDT CHÁVEZ ARIA First Treatment Date 4 11:45 CDT CHÁVEZ ARIA Last Treatment Date 4 14:56 CDT CHÁVEZ ARIA Treatment Elapsed Days 34 CHÁVEZ ARIA Reference Point [id number] CHÁVEZ ARIA Dosage Given to Date cGy 5000 CHÁVEZ ARIA Session Dosage Given 200 CHÁVEZ ARIA Plan ID [id number] L CHÁVEZ ARIA Fractions Treated to Date 8 CHÁVEZ ARIA Planned Total Fractions 8 CHÁVEZ ARIA Prescribed Dose Per Fraction 200 CHÁVEZ ARIA Prescription Dose in cGy 1600 CHÁVEZ ARIA Plan Primary Reference Point [id number] CHÁVEZ ARIA 10/24/2023 2:56 PM CDT Provider Not In System RADIATION ONCOLOG Y ORDERABLES Performing Organization Address [facility] Co de Phone Number KYLER YOO na * MM clip placement LT-Outside Mammogram (06/14/2023 9:05 AM ELEVATOR MECHANIC APPRENTICE) Narrative IIMS - 06/26/2023 8:44 AM ELEVATOR MECHANIC APPRENTICE This order has been created and auto-finalized to support the import of outside images. If available, original interpretation can be found on the Media Tab in Chart Review, in Document Viewer, or as an image in QREADS. If a re-interpretation or overread is required please follow defined workflow. ?? Provider Not In System IMG BI PROCEDURES II NA from Last 3 Months or Most Recently Relevant to Health Maintenance
--- OUTSIDE RECORDS SUMMARY | 2024-01-04 09:24 | XMS_ITS | Clinical Summary ---
Author Organization [facility] Address [address] [place] [address] Care Team Providers Care Medical Radiation Therapist Name Role Phone Unavailable Primary Care Provider Unavailabl e Source Comments Patient records contain information from all sites at [facility]. For routine questions regarding patient records, call [phone] during business hours, M-F 8:00 AM - 5:00 PM Central Time. Record requests for emergency care only can be directed to [phone] at any time.[facility] Allergies Active Allergy Reactions Criticality Noted Date Comments Adhesive Other (see comments) 06/20/2023 Cefaclor Rash High 06/26/2006 hives Chlorhexidine Hives (Reselect Reaction),Itching High 05/22/2023 rash, airway Clindamycin Other (see comments) 09/13/2023 Throat pain Nnh-Knyfyufkx-Sl-Acetamino phen Headache 06/26/2006 Dextromethorphan Other (see comments) [...] from 01/01/2023:Stage IB(cT2, cN1, cM0, G3, ER+, [place]+, HER2+) - Unsigned Pathologic stage from 06/14/2023: ypT2, pN0(sn), cM0, G2, ER+, KY+, HER2+ - Unsigned Encounters Date Type Department Care Team Description 10/24/2023 2:22 PM CDT - 10/24/2023 11:59 PM CDT Hospital Encounter Department of Radiation Oncology in [address] [address] Jennifer Lebron M.D. Discharge Disposition: Home or Self Care 10/24/2023 Documentation Department of Radiation Oncology in [address] [address] Jennifer Lebron M.D. 10/23/2023 2:25 PM CDT - 10/23/2023 4:53 PM CDT Hospital Encounter Department of Radiation Oncology in [address] [address] Jennifer Lebron M.D. Malignant Neoplasm Of Breast Female Left (HCC) 10/23/2023 2:24 PM CDT Hospital Encounter Department of Radiation Oncology in [address] [address] Jennifer Lebron M.D. Discharge Disposition: Home or Self Care 10/22/2023 2:17 PM CDT - 10/22/2023 11:59 PM CDT Hospital Encounter Department of Radiation Oncology in [address] [address] Jennifer Lebron M.D. Discharge Disposition: Home or Self Care 10/19/2023 2:20 PM CDT - 10/19/2023 11:59 PM CDT Hospital Encounter Department of Radiation Oncology in [address] [address] Jennifer Lebron M.D. Discharge Disposition: Home or Self Care 10/18/2023 2:16 PM CDT - 10/18/2023 11:59 PM CDT Hospital Encounter Department of Radiation Oncology in [address] [address] Jennifer Lebron M.D. Discharge Disposition: Home or Self Care 10/17/2023 2:20 PM CDT - 10/17/2023 11:59 PM CDT Hospital Encounter Department of Radiation Oncology in [address] [address] Jennifer Lebron M.D. Discharge Disposition: Home or Self Care 10/16/2023 2:19 PM CDT - 10/17/2023 10:13 AM CDT Hospital Encounter Department of Radiation Oncology in [address] [address] Jennifer Lebron M.D. Malignant Neoplasm Of Breast Female Left (HCC) 10/16/2023 2:18 PM CDT Hospital Encounter Department of Radiation Oncology in [address] [address] Jennifer Lebron M.D. Discharge Disposition: Home or Self Care 10/15/2023 2:22 PM CDT - 10/15/2023 3:21 PM CDT Hospital Encounter Department of Radiation Oncology in [address] [address] Jennifer Lebron M.D. Grieman, Kari A, RDonnaNDonna Malignant Neoplasm Of Breast Female Left (HCC) (Primary Dx) 10/15/2023 2:21 PM CDT Hospital Encounter Department of Radiation Oncology in [address] [address] Jennifer Lebron M.D. Discharge Disposition: Home or Self Care 10/12/2023 2:20 PM CDT - 10/12/2023 11:59 PM CDT Hospital Encounter Department of Radiation Oncology in [address] [address] Jennifer Lebron M.D. Discharge Disposition: Home or Self Care 10/11/2023 2:18 PM CDT - 10/11/2023 11:59 PM CDT Hospital Encounter Department of Radiation Oncology in [address] [address] Jennifer Lebron M.D. Discharge Disposition: Home or Self Care 10/10/2023 2:21 PM CDT - 10/10/2023 11:59 PM CDT Hospital Encounter Department of Radiation Oncology in [address] [address] Jennifer Lebron M.D. Discharge Disposition: Home or Self Care 10/09/2023 2:20 PM CDT - 10/09/2023 5:46 PM CDT Hospital Encounter Department of Radiation Oncology in [address] [address] Jennifer Lebron M.D. Malignant Neoplasm Of Breast Female Left (HCC) 10/09/2023 2:20 PM CDT - 10/09/2023 11:59 PM CDT Hospital Encounter Department of Radiation Oncology in [address] [address] Jennifer Lebron M.D. Discharge Disposition: Home or Self Care 10/08/2023 10:21 AM CDT - 10/08/2023 11:59 PM CDT Hospital Encounter Department of Radiation Oncology in [address] [address] Jennifer Lebron M.D. Discharge Disposition: Home or Self Care 10/05/2023 2:18 PM CDT - 10/05/2023 11:59 PM CDT Hospital Encounter Department of Radiation Oncology in [address] [address] Jennifer Lebron M.D. Discharge Disposition: Home or Self Care 10/01/2023 2:14 PM CDT - 10/09/2023 11:19 AM CDT Hospital Encounter Department of Radiation Oncology in [place], [place] [address] [facility] [place] [address] Jennifer Lebron M.D. Kozelsky, Timothy F, M.D. Malignant Neoplasm Of Breast Female Left (HCC) from Last 3 Months Social History Tobacco Use Types Packs/Day Years Used Date Smoking Tobacco: Never Smokeless Tobacco: Never Tobacco Cessation:Counseling Given: Not Answered Alcohol Use Standard Drinks/Week Comments Not Currently 0 (1 standard drink = 0.6 oz pur e alcohol) [facility] Utilities Answer Date Recorded In the past 12 months has th e electric, gas, oil, or water [employer] threatened to shut off services in your [...] your living situation today? I have a [facility] place to live 09/09/2023 Sex and Gender Information Value Date Recorded Sex Assigned at Female 07/04/2023 4:23 PM HVAC PROJECT ENGINEER Gender Identity Female 07/04/2023 4:23 PM HVAC PROJECT ENGINEER Sexual Orientation Straight 07/04/2023 4: 23 PM HVAC PROJECT ENGINEER Last Filed Vital Signs Vital Sign Reading [...] Mass Index - - Plan of Treatment Health Maintenance Due Date Last Done Comments CT Colonography 1975 Cervical Cancer Screening 1975 Cologuard 1975 Colonoscopy 1975 Colorectal Cancer Screening 1975 FIT 1975 Fasting Glucose for Diabetes Screening 1975 HIV Screening 1975 Hepatitis C Screening 1975 Lipid (Cholesterol) Screening 1975 Pneumococcal vaccine (0-64 years) (1 of 2 - PCV) 1981 Hepatitis B Vaccines (1 of 3 - 19+ 3-dose series) 1994 Zoster Vaccines (1 of 2) 1994 COVID-19 Vaccine ( - 2022- season) 2023 03/23/2022, 05/11/2021, 11/03/2020, Additional history exists Depression Screening (Annual PHQ-2) 07/02/2023 Influenza Vaccine (#1) 2024 DTaP,Tdap,and Td Vaccines (3 - Td or Tdap) 02/01/2029 02/01/2019, 11/05/1991 Mammogram Discontinued 06/14/2023, 06/01, 01/01/2023, Additional history exists HPV Vaccines Aged Out No longer eligi ble based on patient's age to complete this topic Procedures Procedure Name Priority Date/Time Associated Diagnosis [...] OUTSIDE MG MAMMOGRAM Routine 06/14/2023 9:05 AM HVAC PROJECT ENGINEER from Last 3 Months or Most Recently [...] Elapsed Days 34 CHÁVEZ ARIA Reference Point [id number] CHÁVEZ ARIA Dosage Given to Date cGy 5000 CHÁVEZ ARIA Plan ID [id number] L CHÁVEZ ARIA Fractions Treated to Date 8 CHÁVEZ ARIA Planned Total Fractions 8 CHÁVEZ ARIA Prescribed Dose Per Fraction 200 CHÁVEZ ARIA Prescription Dose in cGy 1600 CHÁVEZ ARIA Plan Primary Reference Point [id number] CHÁVEZ ARIA Plan ID [id number] CHÁVEZ ARIA Fractions Treated to Date 17 CHÁVEZ ARIA Planned Total Fractions 17 CHÁVEZ ARIA Prescribed Dose Per Fraction 200 CHÁVEZ ARIA Prescription Dose in cGy 3400 CHÁVEZ ARIA Plan Primary Reference Point [id number] CHÁVEZ ARIA 10/24/2023 2:56 PM CDT Provider Not In System RADIATION ONCOLOG Y ORDERABLES CHÁVEZ FREDO na * Aria Daily Treatment Information (10/24/2023 2:56 PM CDT) Only the most recent of14 resultswithin the time period is included. Course ID 1xBreast CHÁVEZ ARIA Course Start Date 4 13:01 CDT CHÁVEZ ARIA First Treatment Date 4 11:45 CDT CHÁVEZ ARIA Last Treatment Date 4 14:56 CDT CHÁVEZ ARIA Treatment Elapsed Days 34 CHÁVEZ ARIA Reference Point [id number] CHÁVEZ ARIA Dosage Given to Date cGy 5000 CHÁVEZ ARIA Session Dosage Given 200 CHÁVEZ ARIA Plan ID [id number] L CHÁVEZ ARIA Fractions Treated to Date 8 CHÁVEZ ARIA Planned Total Fractions 8 CHÁVEZ ARIA Prescribed Dose Per Fraction 200 CHÁVEZ ARIA Prescription Dose in cGy 1600 CHÁVEZ ARIA Plan Primary Reference Point [id number] [facility] 10/24/2023 2:56 PM CDT Provider Not In System RADIATION ONCOLOG Y ORDERABLES KYLER YOO na * MM clip placement LT-Outside Mammogram (06/14/2023 9:05 AM HVAC PROJECT ENGINEER) Narrative IIMS - 06/26/2023 8:44 AM HVAC PROJECT ENGINEER This order has been created and auto-finalized to support the import of outside images. If available, original interpretation can be found on the Media Tab in Chart Review, in Document Viewer, or as an image in QREADS. If a re-interpretation or overread is required please follow defined workflow. ?? Provider Not In System IMG BI PROCEDURES Performing Organization Address [facility] Co de Phone Number IIWY NA from Last 3 Months or Most Recently Relevant to Health Maintenance
--- OUTSIDE RECORDS SUMMARY | 2024-01-04 09:24 | XMS_ITS | Encounter Summary ---
Author Organization [facility] Address [address] [place] [address] Care Team Providers Care Planting Machine Crewman Name Role Phone Unavailable Primary Care Provider Unavailabl e Reason for Visit * Radiation Therapy (Routine) - Authorized Specialty Diagnoses / Procedures Referred By Aniyah lackey Referred To Contact Diagnoses Malignant Neoplasm Of Breast Female Left (HCC) Procedures Prior Auth Rad Tx [place] RADTN TX DEL >=1 MEV COMPLEX 3D Jennifer Lebron M.D. [address] [place] [address] [facility] Referral ID Status Reason Start Date Expiration Date V isits Requested Visits Authorized [id number] Authorized 08/13/2023 07/03/2024 30 30 Encounter Details Date Type Department Care Team (Latest Contact Info) Description 10/24/2023 2:22 PM CDT - 10/24/2023 11:59 PM CDT Hospital Encounter Department of Radiation Oncology in [place], [place] [address] [place] [phone] Jennifer Lebron M.D. [address] [place] [phone] Discharge Disposition: Home or Self Care Social History Tobacco Use Types Packs/Day Years Used Date Smoking Tobacco: Never Smokeless Tobacco: Never Alcohol Use Standard Drinks/Week Comments Not Currently 0 (1 standard drink = 0.6 oz pur e alcohol) [facility] Utilities Answer Date Recorded In the past 12 months has [employer] electric, gas, oil, or water company threatened to shut off services in your [...] money to buy more. Never true 09/09/19 Within the past 12 months, t he [...] your living situation today? I have a [facility] place to live 09/09/2023 Sex and Gender Information Value Date Recorded Sex Assigned at Female 07/04/2023 4:23 PM SITE SUPERVISOR Gender Identity Female 07/04/2023 4:23 PM SITE SUPERVISOR Sexual Orientation Straight 07/04/2023 4: 23 PM SITE SUPERVISOR documented as of this encounter Medications at Time of Discharge Medication Sig Dispensed Refills Start Date End Date acetaminophen (TYLENOL) 500 mg capsule Take 1,000 mg by mouth every 6 (six) hours as needed. albuterol 90 mcg/actuation inhaler Inhale. 08/01/2006 mometasone (ELOCON) 0.1 % cream Apply 1 Application topically daily. Apply to skin within the treatment field. 45 g 09/13/2023 ondansetron (ZOFRAN) 4 mg tablet Take 2 mg by mouth every 8 (eight) hours as needed. documented as of this encounter Plan of Treatment Not on file documented as of this encounter Visit Diagnoses Not on filedocumented in this encounter
--- OUTSIDE RECORDS SUMMARY | 2024-01-04 09:24 | XMS_ITS ---
Author Organization [facility] Address [address] [place] [address] Care Team Providers Care Student Dean Name Role Phone Unavailable Primary Care Provider Unavailabl e Active Problems Problem Noted Date Diagnosed Date Malignant Neoplasm Of Breast Female Left 023 Cancer Staging:Clinical stage from 01/01/2023:Stage IB(cT2, cN1, cM0, G3, ER+, WA+, HER2+) - Unsigned Pathologic stage from 06/14/2023: ypT2, pN0(sn), cM0, G2, ER+, WA+, HER2+ - Unsigned Current Oncology Plans No current plan information found. Past Plans No past plan information found. Radiation Treatments * Plan Last Treated On Elapsed Days Fractions Treated Prescribed Fraction Dose Prescribed Total Dose [id number] 10/24/2023 34 8 of 8 200 cGy 1,600 cGy [id number] 10/12/2023 22 17 of 17 200 cGy 3,400 cGy Reference Point Last Treated On Elapsed Days Session Dose Total Dose [id number] 10/24/2023 34 200 cGy 5,000 cGy
--- OUTSIDE RECORDS SUMMARY | 2024-01-04 09:24 | XMS_ITS | Encounter Summary ---
Author Organization [facility] Address [address] [place] [address] Care Team Providers Care Cleaning Matron Name Role Phone Unavailable Primary Care Provider Unavailabl e Encounter Details Date Type Department Care Team (Late st Contact Info) Description 10/24/2023 Documentation Department of Radiation Oncology in [place], [place] [address] [place] [phone] Jennifer Lebron M.D. [address] [place] [address] Social History Tobacco Use Types Packs/Day Years Used Date Smoking Tobacco: Never Smokeless Tobacco: Never Alcohol Use Standard Drinks/Week Comments Not Currently 0 (1 standard drink = 0.6 oz pur e alcohol) [facility] Utilities Answer Date Recorded In the past 12 months has th e electric, gas, oil, or water company threatened [...] your living situation today? I have a [facility] place to live 09/09/2023 Sex and Gender Information Value Date Recorded Sex Assigned at Female 07/04/2023 4:23 PM ELECTRICAL DRAFTER Gender Identity Female 07/04/2023 4:23 PM ELECTRICAL DRAFTER Sexual Orientation Straight 07/04/2023 4: 23 PM ELECTRICAL DRAFTER documented as of this encounter Miscellaneous Notes * Radiation Completion Notes - Anamaria Garrison R.N. - 10/24/2023 11:59 PM CDT DIAGNOSIS: 1. Malignant Neoplasm Of Breast Female Left (HCC) Attending Physician: Jennifer Lebron M.D. Treatment Intent: Curative Concomitant Therapy: None Single Plan Treatment Course: 1xBreast Plan ID Fractions Dose / Fraction (cGy) Dose Treated (cGy) Dose Planned (cGy) First Treatment Last Treatment Elapsed Days [id number] 200 3400 3400 09/20/2023 10/12/2023 22 [id number] / 8 200 1600 1600 10/15/2023 10/24/2023 9 Treatment Site Summary 5000 5000 09/20/2023 10/24/2023 34 Course Summary 09/20/2023 10/24/2023 34 Radiation Modality: Photons CLINICAL SUMMARY Tiesha Hernandez completed radiation treatment as planned without interruptions. The course of treatment was tolerated well. The patient experienced toxicities of grade 1 dermatitis, pain and decrease ROM and grade 2 fatigue during radiation treatment. TREATMENT RESPONSE: Response to treatment will be determined by post-treatment imaging and/or laboratory work. RECOMMENDED FOLLOW UP: Primary Medical Oncologist. Follow-up will be with Dr. Triana and Dr. Winters. Signed by: Anamaria Garrison R.N., 11/12/2023 4:32 PM CDT [facility] [address] [place] [address] documented in this encounter Plan of Treatment Not on file documented as of this encounter Visit Diagnoses Diagnosis Malignant Neoplasm Of Breast Female Left (HCC)- Primary documented in this encounter
--- OUTSIDE RECORDS SUMMARY | 2024-01-04 09:25 | XMS_ITS | Encounter Summary ---
Author Organization [facility] Address [address] [place] [address] Care Team Providers Care Coverstitch Elastic Attacher Name Role Phone Unavailable Primary Care Provider Unavailabl e Reason for Visit * Radiation Therapy (Routine) - Authorized Specialty Diagnoses / Procedures Referred By Aniyah lackey Referred To Contact Diagnoses Malignant Neoplasm Of Breast Female Left (HCC) Procedures Prior Auth Rad Tx [place] RADTN TX DEL >=1 MEV COMPLEX 3D Jennifer Lebron M.D. [address] [place] [address] [facility] Referral ID Status Reason Start Date Expiration Date V isits Requested Visits Authorized [id number] Authorized 08/13/2023 07/03/2024 30 30 Encounter Details Date Type Department Care Team (Latest Contact Info) Description 10/17/2023 2:20 PM CDT - 10/17/2023 11:59 PM CDT Hospital Encounter Department of Radiation Oncology in [place], [place] [address] [place] [phone] Jennifer Lebron M.D. [address] [place] [phone] Discharge Disposition: Home or Self Care Social History Tobacco Use Types Packs/Day Years Used Date Smoking Tobacco: Never Smokeless Tobacco: Never Alcohol Use Standard Drinks/Week Comments Not Currently 0 (1 standard drink = 0.6 oz pur e alcohol) [facility] Utilities Answer Date Recorded In the past 12 months has [employer] electric, gas, oil, or water company threatened [...] your living situation today? I have a [employer] [facility] [employer] place to live 09/09/2023 Sex and Gender Information Value Date Recorded Sex Assigned at Female 07/04/2023 4:23 PM CAR HOSTLER Gender Identity Female 07/04/2023 4:23 PM CAR HOSTLER Sexual Orientation Straight 07/04/2023 4: 23 PM CAR HOSTLER documented as of this encounter Medications at [...]
--- OUTSIDE RECORDS SUMMARY | 2024-01-04 09:25 | XMS_ITS | Encounter Summary ---
Author Organization [facility] Address [address] [place] [address] Care Team Providers Care Cot Assembler Name Role Phone Unavailable Primary Care Provider Unavailabl e Reason for Referral * Radiation Therapy (Routine) - Authorized Specialty Diagnoses / Procedures Referred By Aniyah lackey Referred To Contact Diagnoses Malignant Neoplasm Of Breast Female Left (HCC) Procedures Management Visit Jennifer Lebron M.D. [address] [place] [address] [facility] Referral ID Status Reason Start Date Expiration Date V isits Requested Visits Authorized [id number] Authorized 07/04/2023 07/03/2024 10 10 Reason for Visit * Radiation Therapy (Routine) - Authorized Specialty Diagnoses / Procedures Referred By Aniyah lackey Referred To Contact Diagnoses Malignant Neoplasm Of Breast Female Left (HCC) Procedures Management Visit Jennifer Lebron M.D. [address] [place] [address] [facility] Region Referral ID Status Reason Start Date Expiration Date V isits Requested Visits Authorized [id number] Authorized 07/04/2023 07/03/2024 10 10 Encounter Details Date Type Department Care Team (Latest Contact Info) Description 10/09/2023 2:20 PM CDT - 10/09/2023 5:46 PM CDT Hospital Encounter Department of Radiation Oncology in [place], [place] [address] [place] [phone] Jennifer Lebron M.D. [address] [place] [address] Malignant Neoplasm Of Breast Female Left (HCC) Social History Tobacco Use Types Packs/Day Years Used Date Smoking Tobacco: Never Smokeless Tobacco: Never Alcohol Use Standard Drinks/Week Comments Not Currently 0 (1 standard drink = 0.6 oz pur e alcohol) [facility] Utilities Answer Date Recorded In the past 12 months has e [employer], gas, oil, or water [employer] threatened to shut off services in your [...] your living situation today? I have a [facility] place to live 09/09/2023 Sex and Gender Information Value Date Recorded Sex Assigned at Female 07/04/2023 4:23 PM DATA TYPIST Gender Identity Female 07/04/2023 4:23 PM DATA TYPIST Sexual Orientation Straight 07/04/2023 4: 23 PM DATA TYPIST documented as of this encounter Last Filed Vital Signs Vital Sign Reading Time Taken Comments Blood Pressure - - Pulse - - Temperature 36.4 ??C (97.6 ??F) 10/09/2023 2:56 PM CD T Respiratory Rate - - Oxygen Saturation - - Inhaled Oxygen Concentration - - Weight 106 kg (233 lb 7.5 oz) 10/09/2023 2:56 PM CDT Height - - Body Mass Index - - documented in this encounter Medications at Time of Discharge [...] as needed. documented as of this encounter Progress Notes * Jennifer Lebron M.D. - 10/09/2023 3:00 PM CDT ATTESTATION FOR MANAGEMENT VISIT I saw and evaluated the patient and participated in the alvarez portions of the service as noted below.I reviewed the documentation of Ms. Anamaria Garrison RN and agree with the findings and plan. The patient appears well on exam. We will continue with radiation as planned and monitor weekly. Jennifer Lebron M.D., 10/09/2023 SUBJECTIVE CHIEF COMPLAINT/REASON FOR VISIT Evaluation for side effects while receiving radiation treatment for 1. Malignant Neoplasm Of Breast Female Left (HCC) SUPERVISED BY: Jennifer Lebron M.D. HISTORY OF PRESENT ILLNESS Tiesha Hernandez is a 48 y.o. female with clinical stage IB (cT2, cN1, cM0, G3, ER+, VT+, HER2+) invasive ductal carcinoma of the left breast s/p neoadjuvant chemotherapy followed by bilateral mastectomies and left axillary lymph node biopsy on June 14, 2023, ypT2 pN0 . Treatment Course: 1xBreast Plan ID Fractions Dose / Fraction (cGy) Dose Treated (cGy) Dose Planned (cGy) First Treatment Last Treatment Elapsed Days [id number] 200 2800 3400 09/20/2023 10/09/2023 Course Summary 09/20/2023 10/09/2023 The patient was seen and examined today with Dr. Lebron. The patient reports to be feeling well overall. Patient reports the development of mild sore throatand post nasal drip this past Sunday, October 05, 2023. Patient denies fevers or chills. Patient denies any other new symptoms. Patient reports that she does not feel the need to take pain medication atthis time. She is applying Mometasone and lotion upper chest and upper back. PATIENT REPORTED SYMPTOM SCREEN: FATIGUE (Scale: 0 = no fatigue; 10 = worst fatigue you can imagine): 7 PAIN (Scale: 0 = no pain; 10 = worst pain you can imagine): 0 OVERALL QUALITY OF LIFE (Scale: 0 = as bad as can be; 10 = as good as can be): 8 OBJECTIVE Temp 36.4 ??C (Temporal) Wt 106 kg PHYSICAL EXAMINATION General: Alert and oriented, in no apparent distress. Skin: minimal pink toned skin to left chest wall. No areas of dryness or desquamation. ASSESSMENT / PLAN #1 Clinical stage IB (cT2, cN1, cM0, G3, ER+, VT+, HER2+) invasive ductal carcinoma of the left breast s/p neoadjuvant chemotherapy followed by bilateral mastectomies and left axillary lymph node biopsy on June 14, 2023, ypT2 pN0 #2 Reconstructive surgery on July 06, 2023 #3 TDM1 initiated on July 30, 2023 #4 Radiotherapy left chest wall and regional lymph nodes initiated on September 20, 2023; anticipated date of completion October 24, 2023. Patient has an appointment this afternoon at [facility] to complete COVID testing. Patient will notify our office with results of COVID testing. If COVID + then patient will need to mask for 10 days when she comes to daily radiation treatments. Mepitel is intact. She can continue to apply Mometasone and lotion to upper left chest and back. She will continue with radiation treatment as planned. She can contact our care team with any questions or concerns. Signed by: Anamaria Garrison R.N. 10/09/2023 3:09 PM CDT documented in this encounter Plan of Treatment Scheduled Orders Name Type Priority Associated Diagnoses Orde r Schedule Management Visit Radiation Oncology Routine Malignant Neoplasm Of Breast Female Left (HCC) Once for 1 Occurrences starting 10/09/2023 until 10/09/2023 documented as of this encounter Visit Diagnoses Diagnosis Malignant Neoplasm Of Breast Female Left (HCC) documented in this encounter
--- OUTSIDE RECORDS SUMMARY | 2024-01-04 09:25 | XMS_ITS | Encounter Summary ---
Author Organization [facility] Address [address] [place] [address] Care Team Providers Care Technician Support Engineer Name Role Phone Unavailable Primary Care Provider Unavailabl e Reason for Referral * Radiation Therapy (Routine) - Authorized Specialty Diagnoses / Procedures Referred By Aniyah lackey Referred To Contact Diagnoses Malignant Neoplasm Of Breast Female Left (HCC) Procedures Management Visit Jennifer Lebron M.D. [address] [place] [address] [facility] Referral ID Status Reason Start Date Expiration Date V isits Requested Visits Authorized [id number] Authorized 07/04/2023 07/03/2024 10 10 Reason for Visit * Radiation Therapy (Routine) - Authorized Specialty Diagnoses / Procedures Referred By Aniyah lackey Referred To Contact Diagnoses Malignant Neoplasm Of Breast Female Left (HCC) Procedures Management Visit Jennifer Lebron M.D. [address] [place] [address] [facility] Region Referral ID Status Reason Start Date Expiration Date V isits Requested Visits Authorized [id number] Authorized 07/04/2023 07/03/2024 10 10 Encounter Details Date Type Department Care Team (Latest Contact Info) Description 10/01/2023 2:14 PM CDT - 10/09/2023 11:19 AM CDT Hospital Encounter Department of Radiation Oncology in [place], [place] [address] [place] [address] Jennifer Lebron M.D. [address] [place] [address] Stefan Hoang M.D. [address] [place] [phone] Malignant Neoplasm Of Breast Female Left (HCC) Social History Tobacco Use Types Packs/Day Years Used Date Smoking Tobacco: Never Smokeless Tobacco: Never Alcohol Use Standard Drinks/Week Comments Not Currently 0 (1 standard drink = 0.6 oz pur e alcohol) [facility] Utilities Answer Date Recorded In the past 12 months has e electric, gas, oil, or water [employer] threatened to shut off services in your [...] Date Recorded Employment status Working with temporary [employer] 09/09/2023 Housing Stability Answer Date Recorded What is your living situation today? I have a [facility] place to live 09/09/2023 Sex and Gender Information Value Date Recorded Sex Assigned at Female 07/04/2023 4:23 PM RETURNED TELEPHONE EQUIPMENT APPRAISER Gender Identity Female 07/04/2023 4:23 PM RETURNED TELEPHONE EQUIPMENT APPRAISER Sexual Orientation Straight 07/04/2023 4: 23 PM RETURNED TELEPHONE EQUIPMENT APPRAISER documented as of this encounter Last Filed Vital Signs Vital Sign [place] Time Taken Comments Blood Pressure - - Pulse - - Temperature 36.4 ??C (97.6 ??F) 10/01/2023 2:48 PM CD T Respiratory Rate - - Oxygen Saturation - - Inhaled Oxygen Concentration - - Weight 107 kg (235 lb 14.3 oz) 10/01/2023 2:48 P M CDT Height - - Body [...] as of this encounter Progress Notes * Stefan Hoang M.D. - 10/01/2023 3:00 PM CDT I have reviewed the notes of Anamaria Garrison I examined the patient. Pertinent findings: None; patient without symptoms no significant findings Patient is tolerating treatment extremely well. We will proceed with planned radiation therapy, seeagain next week. Patient advised of the following COVID safety advice from the CDC: Stay home if you can and avoid any non-essential travel. Avoid social gatherings. Practice social distancing by keeping at least 6 feet -- about two arm lengths -- away from others if you must go out in public. Wash your hands oftenwith soap and water for at least 20 seconds, especially after being in a public place, or after blowing your nose, coughing or sneezing. If soap and water are not readily available, use a hand cnc programmer with at least 60% alcohol. Avoid touching your eyes, nose and mouth. Clean and disinfect household surfaces daily and high- touch surfaces frequently throughout the day. SUBJECTIVE CHIEF COMPLAINT/REASON FOR VISIT Evaluation for side effects while receiving radiation treatment for 1. Malignant Neoplasm Of Breast Female Left (HCC) SUPERVISED BY: Dr. Hoang HISTORY OF PRESENT ILLNESS Tiesha eHrnandez is a 48 y.o. female with clinical stage IB (cT2, cN1, cM0, G3, ER+, NE+, HER2+) invasive ductal carcinoma of the left breast s/p neoadjuvant chemotherapy followed by bilateral mastectomies and left axillary lymph node biopsy on June 14, 2023, ypT2 pN0 . Treatment Course: 1xBreast Plan ID Fractions Dose / Fraction (cGy) Dose Treated (cGy) Dose Planned (cGy) First Treatment Last Treatment Elapsed Days [id number] 200 1600 3400 09/20/2023 10/01/2023 11 Course Summary 09/20/2023 10/01/2023 11 The patient was seen and examined today with Dr. Hoang. The patient reports to be feeling well overall. She does notice occasional discomfort/tightness to left chest wall. Patient is not taking any pain medication at this time. She is applying Mometasone and lotion upper chest and upper back. PATIENT REPORTED SYMPTOM SCREEN: FATIGUE (Scale: 0 = no fatigue; 10 = worst fatigue you can imagine): 4 PAIN (Scale: 0 = no pain; 10 = worst pain you can imagine): 0 OVERALL QUALITY OF LIFE (Scale: 0 = as bad as can be; 10 = as good as can be): 8 OBJECTIVE Temp 36.4 ??C (Temporal) Wt 107 kg PHYSICAL EXAMINATION General: Alert and oriented, in no apparent distress. ASSESSMENT / PLAN #1 Clinical stage IB (cT2, cN1, cM0, G3, ER+, NE+, HER2+) invasive ductal carcinoma of the left breast s/p neoadjuvant chemotherapy followed by bilateral mastectomies and left axillary lymph node biopsy on June 14, 2023, ypT2 pN0 #2 Reconstructive surgery on July 06, 2023 #3 TDM1 initiated on July 30, 2023 #4 Radiotherapy left chest wall and regional lymph nodes initiated on September 20, 2023; anticipated date of completion October 24, 2023. The patient is tolerating radiation treatment well overall. I re applied Mepitel today. She can continue to apply Mometasone and lotion to upper left chest and back. Patient can take over the counterpain medication. She will continue with radiation treatment as planned. She can contact our care team with any questions or concerns. Signed by: Anamaria Garrison R.N. 10/01/2023 3:52 PM CDT documented in this encounter Plan of Treatment Scheduled Orders Name Type Priority Associated Diagnoses Orde r Schedule Management Visit Radiation Oncology Routine Malignant Neoplasm Of Breast Female Left (HCC) Once for 1 Occurrences starting 10/01/2023 until 10/01/2023 documented as of this encounter Visit Diagnoses Diagnosis Malignant Neoplasm Of Breast Female Left (HCC) documented in this encounter
--- OUTSIDE RECORDS SUMMARY | 2024-01-04 09:25 | XMS_ITS | Encounter Summary ---
Author Organization [facility] Address [address] [place] [address] Care Team Providers Care Lead Embedded Software Engineer Name Role Phone Unavailable Primary Care Provider Unavailabl e Reason for Visit * Radiation Therapy (Routine) - Authorized Specialty Diagnoses / Procedures Referred By Aniyah lackey Referred To Contact Diagnoses Malignant Neoplasm Of Breast Female Left (HCC) Procedures Prior Auth Rad Tx [place] RADTN TX DEL >=1 MEV COMPLEX 3D Jennifer Lebron M.D. [address] [place] [address] [facility] Referral ID Status Reason Start Date Expiration Date V isits Requested Visits Authorized [id number] Authorized 08/13/2023 07/03/2024 30 30 Encounter Details Date Type Department Care Team (Latest Contact Info) Description 10/05/2023 2:18 PM CDT - 10/05/2023 11:59 PM CDT Hospital Encounter Department of Radiation Oncology in [place], [place] [address] [place] [phone] Jennifer Lebron M.D. [address] [place] [phone] Discharge Disposition: Home or Self Care Social History Tobacco Use Types Packs/Day Years Used Date Smoking Tobacco: Never Smokeless Tobacco: Never Alcohol Use Standard Drinks/Week Comments Not Currently 0 (1 standard drink = 0.6 oz pur e alcohol) [facility] Utilities Answer Date Recorded In the past 12 months has [employer] electric, gas, oil, or water company threatened [...] your living situation today? I have a [facility] place to live 09/09/2023 Sex and Gender Information Value Date Recorded Sex Assigned at Female 07/04/2023 4:23 PM MACHINE FOLDER Gender Identity Female 07/04/2023 4:23 PM MACHINE FOLDER Sexual Orientation Straight 07/04/2023 4: 23 PM MACHINE FOLDER documented as of this encounter Medications at [...]
--- OUTSIDE RECORDS SUMMARY | 2024-01-04 09:25 | XMS_ITS | Encounter Summary ---
Author Organization [facility] Address [address] [place] [address] Care Team Providers Care Shredder Tender Name Role Phone Unavailable Primary Care Provider Unavailabl e Reason for Referral * Radiation Therapy (Routine) - Authorized Specialty Diagnoses / Procedures Referred By Aniyah lackey Referred To Contact Diagnoses Malignant Neoplasm Of Breast Female Left (HCC) Procedures Management Visit Jennifer Lebron M.D. [address] [place] [address] [facility] Referral ID Status Reason Start Date Expiration Date V isits Requested Visits Authorized [id number] Authorized 07/04/2023 07/03/2024 10 10 Reason for Visit * Radiation Therapy (Routine) - Authorized Specialty Diagnoses / Procedures Referred By Aniyah lackey Referred To Contact Diagnoses Malignant Neoplasm Of Breast Female Left (HCC) Procedures Management Visit Jennifer Lebron M.D. [address] [place] [address] [facility] Region Referral ID Status Reason Start Date Expiration Date V isits Requested Visits Authorized [id number] Authorized 07/04/2023 07/03/2024 10 10 Encounter Details Date Type Department Care Team (Latest Contact Info) Description 10/16/2023 2:19 PM CDT - 10/17/2023 10:13 AM CDT Hospital Encounter Department of Radiation Oncology in [place], [place] [address] [place] [phone] Jennifre Lebron M.D. [address] [place] [address] Malignant Neoplasm Of Breast Female Left (HCC) Social History Tobacco Use Types Packs/Day Years Used Date Smoking Tobacco: Never Smokeless Tobacco: Never Alcohol Use Standard Drinks/Week Comments Not Currently 0 (1 standard drink = 0.6 oz pur e alcohol) [facility] Utilities Answer Date Recorded In the past 12 months has e [employer], gas, oil, or water [employer] threatened to shut off services in your [...] your living situation today? I have a [facility] place to live 09/09/2023 Sex and Gender Information Value Date Recorded Sex Assigned at Female 07/04/2023 4:23 PM ARTIST MODEL Gender Identity Female 07/04/2023 4:23 PM ARTIST MODEL Sexual Orientation Straight 07/04/2023 4: 23 PM ARTIST MODEL documented as of this encounter Last Filed Vital Signs Vital Sign Reading Time Taken Comments Blood Pressure - - Pulse - - Temperature 36.6 ??C (97.9 ??F) 10/16/2023 2:50 PM CD T Respiratory Rate - - Oxygen Saturation - - Inhaled Oxygen Concentration - - Weight 106 kg (233 lb 4 oz) 10/16/2023 2:50 PM C DT Height - - Body Mass Index - [...] Progress Notes * Jennifer Lebron M.D. - 10/16/2023 3:00 PM CDT ATTESTATION FOR MANAGEMENT VISIT I saw and evaluated the patient and participated in the alvarez portions of the service as noted below.I reviewed the documentation of Ms. Zulema Salinas RN and agree with the findings and plan. Thepatient appears well on exam. We will continue with radiation as planned and monitor weekly. Jennifer Lebron M.D., 10/16/2023 SUBJECTIVE CHIEF COMPLAINT/REASON FOR VISIT Evaluation for side effects while receiving radiation treatment for 1. Malignant Neoplasm Of Breast Female Left (HCC) SUPERVISED BY: Jennifer Lebron M.D. HISTORY OF PRESENT ILLNESS Tiesha Hernandez is a 48 y.o. female with clinical stage IB (cT2, cN1, cM0, G3, ER+, MT+, HER2+) invasive ductal carcinoma of the left breast s/p neoadjuvant chemotherapy followed by bilateral mastectomies and left axillary lymph node biopsy on June 14, 2023, ypT2 pN0 . Treatment Course: 1xBreast Plan ID Fractions Dose / Fraction (cGy) Dose Treated (cGy) Dose Planned (cGy) First Treatment Last Treatment Elapsed Days [id number] 09/20/2023 10/12/2023 22 [id number] 10/15/2023 10/16/2023 1 Treatment Site Summary [id number] 09/20/2023 10/16/2023 26 Course Summary 09/20/2023 10/16/2023 26 The patient was seen and examined today with Dr. Lebron. The patient reports to be feeling well overall. She notes increasing fatigue with radiation treatments. She is applying Mometasone and lotion to upper chest and upper back. She notes mild, intermittent discomfort in the upper, outer area of her left breast and left axillary discomfort. She takes Tylenol to help with discomfort. She denies any other new issues or concerns at this time. PATIENT REPORTED SYMPTOM SCREEN: FATIGUE (Scale: 0 = no fatigue; 10 = worst fatigue you can imagine): 7 PAIN (Scale: 0 = no pain; 10 = worst pain you can imagine): 0 OVERALL QUALITY OF LIFE (Scale: 0 = as bad as can be; 10 = as good as can be): 8 OBJECTIVE Temp 36.6 ??C (Temporal) Wt 106 kg PHYSICAL EXAMINATION General: Alert and oriented, in no apparent distress. Skin: minimal pink toned skin to left chest wall. Hyperpigment noted left axilla. No areas of dryness or desquamation. ASSESSMENT / PLAN #1 Clinical stage IB (cT2, cN1, cM0, G3, ER+, MT+, HER2+) invasive ductal carcinoma of the left breast s/p neoadjuvant chemotherapy followed by bilateral mastectomies and left axillary lymph node biopsy on June 14, 2023, ypT2 pN0 #2 Reconstructive surgery on July 06, 2023 #3 TDM1 initiated on July 30, 2023 #4 Radiotherapy left chest wall and regional lymph nodes initiated on September 20, 2023; anticipated date of completion October 24, 2023. Patient is tolerating treatment well overall. Mepitel is intact. She can continue to apply Mometasone and lotion to upper left chest and back. She will continue with radiation treatment as planned. She can contact our care team with any questions or concerns. Signed by: Zulema Salinas R.N. 10/17/2023 7:35 AM CDT documented in this encounter Plan of Treatment Scheduled Orders Name Type Priority Associated Diagnoses Orde r Schedule Management Visit Radiation Oncology Routine Malignant Neoplasm Of Breast Female Left (HCC) Once for 1 Occurrences starting 10/16/2023 until 10/16/2023 documented as of this encounter Visit Diagnoses Diagnosis Malignant Neoplasm Of Breast Female Left (HCC) documented in this encounter
--- OUTSIDE RECORDS SUMMARY | 2024-01-04 09:25 | XMS_ITS | Encounter Summary ---
Author Organization [facility] Address [address] [place] [address] Care Team Providers Care Programmer Name Role Phone Unavailable Primary Care Provider Unavailabl e Reason for Visit * Radiation Therapy (Routine) - Authorized Specialty Diagnoses / Procedures Referred By Aniyah lackey Referred To Contact Diagnoses Malignant Neoplasm Of Breast Female Left (HCC) Procedures Prior Auth Rad Tx [place] IMRT SIMPLE IMRT Breast Jennifer Lebron M.D. [address] [place] [address] [facility] Referral ID Status Reason Start Date Expiration Date V isits Requested Visits Authorized [id number] Authorized 09/20/2023 09/16/2024 25 25 Encounter Details Date Type Department Care Team (Latest Contact Info) Description 10/08/2023 10:21 AM CDT - 10/08/2023 11:59 PM CDT Hospital Encounter Department of Radiation Oncology in [place], [place] [address] [place] [phone] Jennifer Lebron M.D. [address] [place] [phone] Discharge Disposition: Home or Self Care Social History Tobacco Use Types Packs/Day Years Used Date Smoking Tobacco: Never Smokeless Tobacco: Never Alcohol Use Standard Drinks/Week Comments Not Currently 0 (1 standard drink = 0.6 oz pur e alcohol) [facility] Utilities Answer Date Recorded In the past 12 months has e electric, gas, oil, or water company [...] your living situation today? I have a [facility] place to live 09/09/2023 Sex and Gender Information Value Date Recorded Sex Assigned at Female 07/04/2023 4:23 PM SHOE SHINER Gender Identity Female 07/04/2023 4:23 PM SHOE SHINER Sexual Orientation Straight 07/04/2023 4: 23 PM SHOE SHINER documented as of this encounter Medications at [...]
--- OUTSIDE RECORDS SUMMARY | 2024-01-04 09:25 | XMS_ITS | Encounter Summary ---
Author Organization [facility] Address [address] [place] [address] Care Team Providers Care Bee Producer Name Role Phone Unavailable Primary Care Provider Unavailabl e Reason for Referral * Outpatient (Routine) - Authorized Specialty Diagnoses / Procedures Referred By Aniyah lackey Referred To Contact Radiation Oncology Jennifer Lebron M.D. [address] [place] [address] [facility] Region Referral ID Status Reason Start Date Expiration Date V isits Requested Visits Authorized [id number] Authorized 07/04/2023 07/03/2026 10 10 Reason for Visit * Outpatient (Routine) - Authorized Specialty Diagnoses / Procedures Referred By Aniyah lackey Referred To Contact Radiation Oncology Jennifer Lebron M.D. [address] [place] [address] [facility] Region Referral ID Status Reason Start Date Expiration Date V isits Requested Visits Authorized [id number] Authorized 07/04/2023 07/03/2026 10 10 Encounter Details Date Type Department Care Team (Latest Contact Info) Description 10/15/2023 2:22 PM CDT - 10/15/2023 3:21 PM CDT Hospital Encounter Department of Radiation Oncology in [place], [place] [address] [place] [address] Jennifer Lebron M.D. [address] [place] [phone] Anamaria Garrison R.N. [address] [place] [address] Malignant Neoplasm Of Breast Female Left (HCC) (Primary Dx) Social History Tobacco Use Types Packs/Day Years Used Date Smoking Tobacco: Never Smokeless Tobacco: Never Alcohol Use Standard Drinks/Week Comments Not Currently 0 (1 standard drink = 0.6 oz pur e alcohol) [facility] Utilities Answer Date Recorded In [...] your living situation today? I have a [facility] place to live 09/09/2023 Sex and Gender Information Value Date Recorded Sex Assigned at Female 07/04/2023 4:23 PM CLAIMS ASSOCIATE Gender Identity Female 07/04/2023 4:23 PM CLAIMS ASSOCIATE Sexual Orientation Straight 07/04/2023 4: 23 PM CLAIMS ASSOCIATE documented as of this encounter Medications at [...] as of this encounter Progress Notes * Anamaria Garrison RDonnaN. - 10/15/2023 3:15 PM CDT Mepitel re applied today. A few scattered areas of pink toned skin with in the treatment field area. No areas of desquamation or dryness noted with in the treatment field area. documented in this encounter Plan of Treatment Scheduled Referrals Name Type Priority Associated Diagnoses Order Schedule Radiation Oncology nurse visit (clinic) Outpatient Referral Routine Once for 1 Occurrences starting 10/15/2023 until 10/15/2023 documented as of this encounter Visit Diagnoses Diagnosis Malignant Neoplasm Of Breast Female Left (HCC)- Primary documented in this encounter
--- OUTSIDE RECORDS SUMMARY | 2024-01-04 09:25 | XMS_ITS | Encounter Summary ---
Author Organization [facility] Address [address] [place] [address] Care Team Providers Care Position Classification Manager Name Role Phone Unavailable Primary Care Provider Unavailabl e Reason for Visit * Radiation Therapy (Routine) - Authorized Specialty Diagnoses / Procedures Referred By Aniyah lackey Referred To Contact Diagnoses Malignant Neoplasm Of Breast Female Left (HCC) Procedures Prior Auth Rad Tx [place] RADTN TX DEL >=1 MEV COMPLEX 3D Jennifer Lebron M.D. [address] [place] [address] [facility] Referral ID Status Reason Start Date Expiration Date V isits Requested Visits Authorized [id number] Authorized 08/13/2023 07/03/2024 30 30 Encounter Details Date Type Department Care Team (Latest Contact Info) Description 10/01/2023 2:14 PM CDT - 10/01/2023 11:59 PM CDT Hospital Encounter Department of Radiation Oncology in [place], [place] [address] [place] [phone] Jennifer Lebron M.D. [address] [place] [phone] Discharge Disposition: Home or Self Care Social History Tobacco Use Types Packs/Day Years Used Date Smoking Tobacco: Never Smokeless Tobacco: Never Alcohol Use Standard Drinks/Week Comments Not Currently 0 (1 standard drink = 0.6 oz pur e alcohol) [facility] Utilities Answer Date Recorded In the past 12 months has [employer] electric, gas, oil, or water company threatened [...] your living situation today? I have a [facility] place to live 09/09/2023 Sex and Gender Information Value Date Recorded Sex Assigned at Female 07/04/2023 4:23 PM TIMBER TRIMMER Gender Identity Female 07/04/2023 4:23 PM TIMBER TRIMMER Sexual Orientation Straight 07/04/2023 4: 23 PM TIMBER TRIMMER documented as of this encounter Medications at [...]
--- OUTSIDE RECORDS SUMMARY | 2024-01-04 09:25 | XMS_ITS | Encounter Summary ---
Author Organization [facility] Address [address] [place] [address] Care Team Providers Care Hard Rock Miner Blasting Name Role Phone Unavailable Primary Care Provider Unavailabl e Reason for Visit * Radiation Therapy (Routine) - Authorized Specialty Diagnoses / Procedures Referred By Aniyah lackey Referred To Contact Diagnoses Malignant Neoplasm Of Breast Female Left (HCC) Procedures Prior Auth Rad Tx [place] RADTN TX DEL >=1 MEV COMPLEX 3D Jennifer Lebron M.D. [address] [place] [address] [facility] Referral ID Status Reason Start Date Expiration Date V isits Requested Visits Authorized [id number] Authorized 08/13/2023 07/03/2024 30 30 Encounter Details Date Type Department Care Team (Latest Contact Info) Description 10/22/2023 2:17 PM CDT - 10/22/2023 11:59 PM CDT Hospital Encounter Department of Radiation Oncology in [place], [place] [address] [place] [phone] Jennifer Lebron M.D. [address] [place] [phone] Discharge Disposition: Home or Self Care Social History Tobacco Use Types Packs/Day Years Used Date Smoking Tobacco: Never Smokeless Tobacco: Never Alcohol Use Standard Drinks/Week Comments Not Currently 0 (1 standard drink = 0.6 oz pur e alcohol) [facility] Utilities Answer Date Recorded In the past 12 months has [employer] electric, gas, oil, or water company threatened [...] your living situation today? I have a [facility] place to live 09/09/2023 Sex and Gender Information Value Date Recorded Sex Assigned at Female 07/04/2023 4:23 PM BUSINESS ACCOUNT MANAGER Gender Identity Female 07/04/2023 4:23 PM BUSINESS ACCOUNT MANAGER Sexual Orientation Straight 07/04/2023 4: 23 PM BUSINESS ACCOUNT MANAGER documented as of this encounter Medications at [...]
--- OUTSIDE RECORDS SUMMARY | 2024-01-04 09:25 | XMS_ITS | Encounter Summary ---
Author Organization [facility] Address [address] [place] [address] Care Team Providers Care Project Management Professional Name Role Phone Unavailable Primary Care Provider Unavailabl e Reason for Visit * Radiation Therapy (Routine) - Authorized Specialty Diagnoses / Procedures Referred By Aniyah lackey Referred To Contact Diagnoses Malignant Neoplasm Of Breast Female Left (HCC) Procedures Prior Auth Rad Tx [place] RADTN TX DEL >=1 MEV COMPLEX 3D Jennifer Lebron M.D. [address] [place] [address] [facility] Referral ID Status Reason Start Date Expiration Date V isits Requested Visits Authorized [id number] Authorized 08/13/2023 07/03/2024 30 30 Encounter Details Date Type Department Care Team (Latest Contact Info) Description 10/15/2023 2:21 PM CDT Hospital Encounter Department of Radiation Oncology in [place], [place] [address] [place] [phone] Jennifer Lebron M.D. [address] [place] [phone] Discharge Disposition: Home or Self Care Social History Tobacco Use Types Packs/Day Years Used Date Smoking Tobacco: Never Smokeless Tobacco: Never Alcohol Use Standard Drinks/Week Comments Not Currently 0 (1 standard drink = 0.6 oz pur e alcohol) [facility] Utilities Answer Date Recorded In the [...] Sex Assigned at Female 07/04/2023 4:23 PM INTERNET E COMMERCE SPECIALIST Gender Identity Female 07/04/2023 4:23 PM INTERNET E COMMERCE SPECIALIST Sexual Orientation Straight 07/04/2023 4: 23 PM INTERNET E COMMERCE SPECIALIST documented as of this encounter Medications at [...]
--- OUTSIDE RECORDS SUMMARY | 2024-01-04 09:25 | XMS_ITS | Encounter Summary ---
Author Organization [facility] Address [address] [place] [address] Care Team Providers Care Yarn Weigher Name Role Phone Unavailable Primary Care Provider Unavailabl e Reason for Visit * Radiation Therapy (Routine) - Authorized Specialty Diagnoses / Procedures Referred By Aniyah lackey Referred To Contact Diagnoses Malignant Neoplasm Of Breast Female Left (HCC) Procedures Prior Auth Rad Tx [place] RADTN TX DEL >=1 MEV COMPLEX 3D Jennifer Lebron M.D. [address] [place] [address] [facility] Referral ID Status Reason Start Date Expiration Date V isits Requested Visits Authorized [id number] Authorized 08/13/2023 07/03/2024 30 30 Encounter Details Date Type Department Care Team (Latest Contact Info) Description 10/23/2023 2:24 PM CDT Hospital Encounter Department of Radiation Oncology in [place], [place] [address] [place] [phone] Jennifer Lebron M.D. [address] [place] [phone] Discharge Disposition: Home or Self Care Social History Tobacco Use Types Packs/Day Years Used Date Smoking Tobacco: Never Smokeless Tobacco: Never Alcohol Use Standard Drinks/Week Comments Not Currently 0 (1 standard drink = 0.6 oz pur e alcohol) [facility] Utilities Answer Date Recorded In the [...] your living situation today? I have a [facility] place to live 09/09/2023 Sex and Gender Information Value Date Recorded Sex Assigned at Female 07/04/2023 4:23 PM AIR TANK ASSEMBLER Gender Identity Female 07/04/2023 4:23 PM AIR TANK ASSEMBLER Sexual Orientation Straight 07/04/2023 4: 23 PM AIR TANK ASSEMBLER documented as of this encounter Medications at [...]
--- OUTSIDE RECORDS SUMMARY | 2024-01-04 09:25 | XMS_ITS | Encounter Summary ---
Author Organization [facility] Address [address] [place] [address] Care Team Providers Care Data Reduction Technician Name Role Phone Unavailable Primary Care Provider Unavailabl e Reason for Visit * Radiation Therapy (Routine) - Authorized Specialty Diagnoses / Procedures Referred By Aniyah lackey Referred To Contact Diagnoses Malignant Neoplasm Of Breast Female Left (HCC) Procedures Prior Auth Rad Tx [place] RADTN TX DEL >=1 MEV COMPLEX 3D Jeninfer Lebron M.D. [address] [place] [address] [facility] Referral ID Status Reason Start Date Expiration Date V isits Requested Visits Authorized [id number] Authorized 08/13/2023 07/03/2024 30 30 Encounter Details Date Type Department Care Team (Latest Contact Info) Description 10/19/2023 2:20 PM CDT - 10/19/2023 11:59 PM CDT Hospital Encounter Department of Radiation Oncology in [place], [place] [address] [place] [phone] Jennifer Lebron M.D. [address] [place] [phone] Discharge Disposition: Home or Self Care Social History Tobacco Use Types Packs/Day Years Used Date Smoking Tobacco: Never Smokeless Tobacco: Never Alcohol Use Standard Drinks/Week Comments Not Currently 0 (1 standard drink = 0.6 oz pur e alcohol) [facility] Utilities Answer Date Recorded In the past 12 months has [employer], gas, oil, or water company threatened [...] your living situation today? I have a [facility] place to live 09/09/2023 Sex and Gender Information Value Date Recorded Sex Assigned at Female 07/04/2023 4:23 PM LIQUID HYDROGEN PLANT OPERATOR Gender Identity Female 07/04/2023 4:23 PM LIQUID HYDROGEN PLANT OPERATOR Sexual Orientation Straight 07/04/2023 4: 23 PM LIQUID HYDROGEN PLANT OPERATOR documented as of this encounter Medications at [...]
--- OUTSIDE RECORDS SUMMARY | 2024-01-04 09:25 | XMS_ITS | Encounter Summary ---
Author Organization [facility] Address [address] [place] [address] Care Team Providers Care Retail Store Associate Name Role Phone Unavailable Primary Care Provider Unavailabl e Reason for Visit * Radiation Therapy (Routine) - Authorized Specialty Diagnoses / Procedures Referred By Aniyah lackey Referred To Contact Diagnoses Malignant Neoplasm Of Breast Female Left (HCC) Procedures Prior Auth Rad Tx [place] RADTN TX DEL >=1 MEV COMPLEX 3D Jennifer Lebron M.D. [address] [place] [address] [facility] Referral ID Status Reason Start Date Expiration Date V isits Requested Visits Authorized [id number] Authorized 08/13/2023 07/03/2024 30 30 Encounter Details Date Type Department Care Team (Latest Contact Info) Description 10/09/2023 2:20 PM CDT - 10/09/2023 11:59 PM CDT Hospital Encounter Department of Radiation Oncology in [place], [place] [address] [place] [phone] Jennifer Lebron M.D. [address] [place] [phone] Discharge Disposition: Home or Self Care Social History Tobacco Use Types Packs/Day Years Used Date Smoking Tobacco: Never Smokeless Tobacco: Never Alcohol Use Standard Drinks/Week Comments Not Currently 0 (1 standard drink = 0.6 oz pur e alcohol) [facility] Utilities Answer Date Recorded In the past 12 months has [employer] electric, gas, oil, or water company threatened [...] your living situation today? I have a [facility] place to live 09/09/2023 Sex and Gender Information Value Date Recorded Sex Assigned at Female 07/04/2023 4:23 PM MANAGEMENT AIDE Gender Identity Female 07/04/2023 4:23 PM MANAGEMENT AIDE Sexual Orientation Straight 07/04/2023 4: 23 PM MANAGEMENT AIDE documented as of this encounter Medications at [...]
--- OUTSIDE RECORDS SUMMARY | 2024-01-04 09:25 | XMS_ITS | Encounter Summary ---
Author Organization [facility] Address [address] [place] [address] Care Team Providers Care Splicer Helper Name Role Phone Unavailable Primary Care Provider Unavailabl e Reason for Visit * Radiation Therapy (Routine) - Authorized Specialty Diagnoses / Procedures Referred By Aniyah lackey Referred To Contact Diagnoses Malignant Neoplasm Of Breast Female Left (HCC) Procedures Prior Auth Rad Tx [place] RADTN TX DEL >=1 MEV COMPLEX 3D Jennifer Lebron M.D. [address] [place] [address] [facility] Referral ID Status Reason Start Date Expiration Date V isits Requested Visits Authorized [id number] Authorized 08/13/2023 07/03/2024 30 30 Encounter Details Date Type Department Care Team (Latest Contact Info) Description 10/10/2023 2:21 PM CDT - 10/10/2023 11:59 PM CDT Hospital Encounter Department of Radiation Oncology in [place], [place] [address] [place] [phone] Jennifer Lebron M.D. [address] [place] [phone] Discharge Disposition: Home or Self Care Social History Tobacco Use Types Packs/Day Years Used Date Smoking Tobacco: Never Smokeless Tobacco: Never Alcohol Use Standard Drinks/Week Comments Not Currently 0 (1 standard drink = 0.6 oz pur e alcohol) [facility] Utilities Answer Date Recorded In the past 12 months has [employer] electric, gas, oil, or water company threatened [...] your living situation today? I have a [facility] place to live 09/09/2023 Sex and Gender Information Value Date Recorded Sex Assigned at Female 07/04/2023 4:23 PM SUPERVISOR SAMPLE Gender Identity Female 07/04/2023 4:23 PM SUPERVISOR SAMPLE Sexual Orientation Straight 07/04/2023 4: 23 PM SUPERVISOR SAMPLE documented as of this encounter Medications at [...]
--- OUTSIDE RECORDS SUMMARY | 2024-01-04 09:25 | XMS_ITS | Encounter Summary ---
Author Organization [facility] Address [address] [place] [address] Care Team Providers Care Cast Iron Drain Pipe Layer Name Role Phone Unavailable Primary Care Provider Unavailabl e Reason for Visit * Radiation Therapy (Routine) - Authorized Specialty Diagnoses / Procedures Referred By Aniyah lackey Referred To Contact Diagnoses Malignant Neoplasm Of Breast Female Left (HCC) Procedures Prior Auth Rad Tx [place] RADTN [place] DEL >=1 MEV COMPLEX 3D Jennifer Lebron M.D. [address] [place] [address] [facility] Referral ID Status Reason Start Date Expiration Date V isits Requested Visits Authorized [id number] Authorized 08/13/2023 07/03/2024 30 30 Encounter Details Date Type Department Care Team (Latest Contact Info) Description 10/02/2023 1:22 PM CDT - 10/02/2023 11:59 PM CDT Hospital Encounter Department of Radiation Oncology in [place], [place] [address] [place] [phone] Jennifer Lebron M.D. [address] [place] [phone] Discharge Disposition: Home or Self Care Social History Tobacco Use Types Packs/Day Years Used Date Smoking Tobacco: Never Smokeless Tobacco: Never Alcohol Use Standard Drinks/Week Comments Not Currently 0 (1 standard drink = 0.6 oz pur e alcohol) [facility] Utilities Answer Date Recorded In the past 12 months has [employer] electric, gas, oil, or water company threatened [...] your living situation today? I [facility] a [facility] 09/09/2023 Sex and Gender Information Value Date Recorded Sex Assigned at Female 07/04/2023 4:23 PM GREENKEEPER Gender Identity Female 07/04/2023 4:23 PM GREENKEEPER Sexual Orientation Straight 07/04/2023 4: 23 PM GREENKEEPER documented as of this encounter Medications at [...]
--- OUTSIDE RECORDS SUMMARY | 2024-01-04 09:25 | XMS_ITS | Encounter Summary ---
Author Organization [facility] Address [address] [place] [address] Care Team Providers Care Curator Of Manuscripts Name Role Phone Unavailable Primary Care Provider Unavailabl e Reason for Visit * Radiation Therapy (Routine) - Authorized Specialty Diagnoses / Procedures Referred By Aniyah lackey Referred To Contact Diagnoses Malignant Neoplasm Of Breast Female Left (HCC) Procedures Prior Auth Rad Tx [place] RADTN [place] DEL >=1 MEV COMPLEX 3D Jennifer Lebron M.D. [address] [place] [address] [facility] Referral ID Status Reason Start Date Expiration Date V isits Requested Visits Authorized [id number] Authorized 08/13/2023 07/03/2024 30 30 Encounter Details Date Type Department Care Team (Latest Contact Info) Description 10/04/2023 2:18 PM CDT - 10/04/2023 11:59 PM CDT Hospital Encounter Department of Radiation Oncology in [place], [place] [address] [place] [phone] Jennifer Lebron M.D. [address] [place] [phone] Discharge Disposition: Home or Self Care Social History Tobacco Use Types Packs/Day Years Used Date Smoking Tobacco: Never Smokeless Tobacco: Never Alcohol Use Standard Drinks/Week Comments Not Currently 0 (1 standard drink = 0.6 oz pur e alcohol) [facility] Utilities Answer Date Recorded In the past 12 months has [employer] electric, gas, oil, or water company threatened [...] your living situation today? I have a [facility] place to live 09/09/2023 Sex and Gender Information Value Date Recorded Sex Assigned at Female 07/04/2023 4:23 PM MARKET GARDEN WORKER Gender Identity Female 07/04/2023 4:23 PM MARKET GARDEN WORKER Sexual Orientation Straight 07/04/2023 4: 23 PM MARKET GARDEN WORKER documented as of this encounter Medications at [...]
--- OUTSIDE RECORDS SUMMARY | 2024-01-04 09:25 | XMS_ITS | Encounter Summary ---
Author Organization [facility] Address [address] [place] [address] Care Team Providers Care Meteorology Instructor Name Role Phone Unavailable Primary Care Provider Unavailabl e Reason for Visit * Radiation Therapy (Routine) - Authorized Specialty Diagnoses / Procedures Referred By Aniyah lackey Referred To Contact Diagnoses Malignant Neoplasm Of Breast Female Left (HCC) Procedures Prior Auth Rad Tx [place] RADTN TX DEL >=1 MEV COMPLEX 3D Jennifer Lebron M.D. [address] [place] [address] [facility] Referral ID Status Reason Start Date Expiration Date V isits Requested Visits Authorized [id number] Authorized 08/13/2023 07/03/2024 30 30 Encounter Details Date Type Department Care Team (Latest Contact Info) Description 10/11/2023 2:18 PM CDT - 10/11/2023 11:59 PM CDT Hospital Encounter Department of Radiation Oncology in [place], [place] [address] [place] [phone] Jennifer Lebron M.D. [address] [place] [phone] Discharge Disposition: Home or Self Care Social History Tobacco Use Types Packs/Day Years Used Date Smoking Tobacco: Never Smokeless Tobacco: Never Alcohol Use Standard Drinks/Week Comments Not Currently 0 (1 standard drink = 0.6 oz pur e alcohol) [facility] Utilities Answer Date Recorded In the past 12 months has [employer] electric, gas, oil, or water company threatened [...] your living situation today? I have a [facility] place to live 09/09/2023 Sex and Gender Information Value Date Recorded Sex Assigned at Female 07/04/2023 4:23 PM SUPERVISOR COMMISSARY PRODUCTION Gender Identity Female 07/04/2023 4:23 PM SUPERVISOR COMMISSARY PRODUCTION Sexual Orientation Straight 07/04/2023 4: 23 PM SUPERVISOR COMMISSARY PRODUCTION documented as of this encounter Medications at [...]
--- OUTSIDE RECORDS SUMMARY | 2024-01-04 09:25 | XMS_ITS | Encounter Summary ---
Author Organization [facility] Address [address] [place] [address] Care Team Providers Care Director Mission Name Role Phone Unavailable Primary Care Provider Unavailabl e Reason for Visit * Radiation Therapy (Routine) - Authorized Specialty Diagnoses / Procedures Referred By Aniyah lackey Referred To Contact Diagnoses Malignant Neoplasm Of Breast Female Left (HCC) Procedures Prior Auth Rad Tx [place] RADTN TX DEL >=1 MEV COMPLEX 3D Jennifer Lebron M.D. [address] [place] [address] [facility] Referral ID Status Reason Start Date Expiration Date V isits Requested Visits Authorized [id number] Authorized 08/13/2023 07/03/2024 30 30 Encounter Details Date Type Department Care Team (Latest Contact Info) Description 10/16/2023 2:18 PM CDT Hospital Encounter Department of Radiation Oncology in [place], [place] [address] [place] [phone] Jennifer Lebron M.D. [address] [place] [phone] Discharge Disposition: Home or Self Care Social History Tobacco Use Types Packs/Day Years Used Date Smoking Tobacco: Never Smokeless Tobacco: Never Alcohol Use Standard Drinks/Week Comments Not Currently 0 (1 standard drink = 0.6 oz pur e alcohol) [facility] Utilities Answer Date Recorded In the [...] your living situation today? I have a [facility] place to live 09/09/2023 Sex and Gender Information Value Date Recorded Sex Assigned at Female 07/04/2023 4:23 PM SPOOL FIXER Gender Identity Female 07/04/2023 4:23 PM SPOOL FIXER Sexual Orientation Straight 07/04/2023 4: 23 PM SPOOL FIXER documented as of this encounter Medications at [...]
--- OUTSIDE RECORDS SUMMARY | 2024-01-04 09:25 | XMS_ITS | Encounter Summary ---
Author Organization [facility] Address [address] [place] [address] Care Team Providers Care Instructional Coordinator Name Role Phone Unavailable Primary Care Provider Unavailabl e Reason for Visit * Radiation Therapy (Routine) - Authorized Specialty Diagnoses / Procedures Referred By Aniyah lackey Referred To Contact Diagnoses Malignant Neoplasm Of Breast Female Left (HCC) Procedures Prior Auth Rad Tx [place] RADTN TX DEL >=1 MEV COMPLEX 3D Jennifer Lebron M.D. [address] [place] [address] [facility] Referral ID Status Reason Start Date Expiration Date V isits Requested Visits Authorized [id number] Authorized 08/13/2023 07/03/2024 30 30 Encounter Details Date Type Department Care Team (Latest Contact Info) Description 10/12/2023 2:20 PM CDT - 10/12/2023 11:59 PM CDT Hospital Encounter Department of Radiation Oncology in [place], [place] [address] [place] [phone] Jennifer Lebron M.D. [address] [place] [phone] Discharge Disposition: Home or Self Care Social History Tobacco Use Types Packs/Day Years Used Date Smoking Tobacco: Never Smokeless Tobacco: Never Alcohol Use Standard Drinks/Week Comments Not Currently 0 (1 standard drink = 0.6 oz pur e alcohol) [facility] Utilities Answer Date Recorded In the past 12 months has [employer] electric, gas, oil, or water company threatened [...] your living situation today? I have a [facility] place to live 09/09/2023 Sex and Gender Information Value Date Recorded Sex Assigned at Female 07/04/2023 4:23 PM SUPERVISING ARCHITECT Gender Identity Female 07/04/2023 4:23 PM SUPERVISING ARCHITECT Sexual Orientation Straight 07/04/2023 4: 23 PM SUPERVISING ARCHITECT documented as of this encounter Medications at [...]
--- OUTSIDE RECORDS SUMMARY | 2024-01-04 09:25 | XMS_ITS | Encounter Summary ---
Author Organization [facility] Address [address] [place] [address] Care Team Providers Care Yield Analyst Name Role Phone Unavailable Primary Care Provider Unavailabl e Reason for Visit * Radiation Therapy (Routine) - Authorized Specialty Diagnoses / Procedures Referred By Aniyah lackey Referred To Contact Diagnoses Malignant Neoplasm Of Breast Female Left (HCC) Procedures Prior Auth Rad Tx [place] RADTN TX DEL >=1 MEV COMPLEX 3D Jennifer Lebron M.D. [address] [place] [address] [facility] Referral ID Status Reason Start Date Expiration Date V isits Requested Visits Authorized [id number] Authorized 08/13/2023 07/03/2024 30 30 Encounter Details Date Type Department Care Team (Latest Contact Info) Description 10/18/2023 2:16 PM CDT - 10/18/2023 11:59 PM CDT Hospital Encounter Department of Radiation Oncology in [place], [place] [address] [place] [phone] Jennifer Lebron M.D. [address] [place] [phone] Discharge Disposition: Home or Self Care Social History Tobacco Use Types Packs/Day Years Used Date Smoking Tobacco: Never Smokeless Tobacco: Never Alcohol Use Standard Drinks/Week Comments Not Currently 0 (1 standard drink = 0.6 oz pur e alcohol) [facility] Utilities Answer Date Recorded In the past 12 months has [employer] electric, gas, oil, or water company threatened [...] your living situation today? I have a [facility] place to live 09/09/2023 Sex and Gender Information Value Date Recorded Sex Assigned at Female 07/04/2023 4:23 PM BALLISTICS LABORATORY GUNSMITH Gender Identity Female 07/04/2023 4:23 PM BALLISTICS LABORATORY GUNSMITH Sexual Orientation Straight 07/04/2023 4: 23 PM BALLISTICS LABORATORY GUNSMITH documented as of this encounter Medications at [...]
--- OUTSIDE RECORDS SUMMARY | 2024-01-04 09:25 | XMS_ITS | Encounter Summary ---
Author Organization [facility] Address [address] [place] [address] Care Team Providers Care Editor Farm Journal Name Role Phone Unavailable Primary Care Provider Unavailabl e Reason for Referral * Radiation Therapy (Routine) - Authorized Specialty Diagnoses / Procedures Referred By Aniyah lackey Referred To Contact Diagnoses Malignant Neoplasm Of Breast Female Left (HCC) Procedures Management Visit Jennifer Lebron M.D. [address] [place] [address] [facility] Referral ID Status Reason Start Date Expiration Date V isits Requested Visits Authorized [id number] Authorized 07/04/2023 07/03/2024 10 10 Reason for Visit * Radiation Therapy (Routine) - Authorized Specialty Diagnoses / Procedures Referred By Aniyah lackey Referred To Contact Diagnoses Malignant Neoplasm Of Breast Female Left (HCC) Procedures Management Visit Jennifer Lebron M.D. [address] [place] [address] [facility] Region Referral ID Status Reason Start Date Expiration Date V isits Requested Visits Authorized [id number] Authorized 07/04/2023 07/03/2024 10 10 Encounter Details Date Type Department Care Team (Latest Contact Info) Description 10/23/2023 2:25 PM CDT - 10/23/2023 4:53 PM CDT Hospital Encounter Department of Radiation Oncology in [place], [place] [address] [place] [phone] Jennifer Lebron M.D. [address] [place] [address] Malignant Neoplasm Of Breast Female Left (HCC) Social History Tobacco Use Types Packs/Day Years Used Date Smoking Tobacco: Never Smokeless Tobacco: Never Alcohol Use Standard Drinks/Week Comments Not Currently 0 (1 standard drink = 0.6 oz pur e alcohol) [facility] Utilities Answer Date Recorded In the past 12 months has [email or web address], gas, oil, or water [facility] threatened to shut off services in your [...] your living situation today? I have a [facility] place to live 09/09/2023 Sex and Gender Information Value Date Recorded Sex Assigned at Female 07/04/2023 4:23 PM SPOOL CLEANER Gender Identity Female 07/04/2023 4:23 PM SPOOL CLEANER Sexual Orientation Straight 07/04/2023 4: 23 PM SPOOL CLEANER documented as of this encounter Last Filed Vital Signs Vital Sign Reading Time Taken Comments Blood Pressure - - Pulse - - Temperature 36.7 ??C (98.1 ??F) 10/23/2023 2:50 [...] Progress Notes * Jennifer Lebron M.D. - 10/23/2023 3:00 PM CDT ATTESTATION FOR MANAGEMENT VISIT I saw and evaluated the patient and participated in the alvarez portions of the service as noted below.I reviewed the documentation of Ms. Zulema Salinas RN and agree with the findings and plan. Thepatient appears well on exam. We will continue with radiation as planned and we anticipate that chelita complete treatments this week. We anticipate that Tiesha Hernandez will complete radiation treatment as planned without interruptions. The course of treatment was tolerated well. The patient experienced toxicities of grade 1 dermatitis, pain and decrease ROM and grade 2 fatigue during radiation treatment. Follow-up will be with Dr. Triana and Dr. Winters. She will see Dr. Winters on to start re-inflating the contralateral side. I will see her again as needed. Jennifer Lebron M.D., 10/23/2023 SUBJECTIVE CHIEF COMPLAINT/REASON FOR VISIT Evaluation for side effects while receiving radiation treatment for 1. Malignant Neoplasm Of Breast Female Left (HCC) SUPERVISED BY: Jennifer Lebron M.D. HISTORY OF PRESENT ILLNESS Tiesha Hernandez is a 48 y.o. female with clinical stage IB (cT2, cN1, cM0, G3, ER+, MO+, HER2+) invasive ductal carcinoma of the left breast s/p neoadjuvant chemotherapy followed by bilateral mastectomies and left axillary lymph node biopsy on June 14, 2023, ypT2 pN0 . Treatment Course: 1xBreast Plan ID Fractions Dose / Fraction (cGy) Dose Treated (cGy) Dose Planned (cGy) First Treatment Last Treatment Elapsed Days [id number] 200 3400 3400 09/20/2023 10/12/2023 22 [id number] 200 1400 1600 10/15/2023 10/23/2023 8 Treatment Site Summary 4800 5000 09/20/2023 10/23/2023 33 Course Summary 09/20/2023 10/23/2023 33 The patient was seen and examined today with Dr. Lebron. The patient reports to be feeling well overall. She notes increasing fatigue with radiation treatments. She reports that she didn't sleep well last night because she received steroids prior to her immunotherapy yesterday. She is applying Mometasone and lotion to upper chest and upper back. She notes mild, intermittent discomfort in the upper, outer area of her left breast and left axillary discomfort. She takes Tylenol to help with discomfort. She denies any other new issues or concerns at thistime. PATIENT REPORTED SYMPTOM SCREEN: FATIGUE (Scale: 0 = no fatigue; 10 = worst fatigue you can imagine): 5 PAIN (Scale: 0 = no pain; 10 = worst pain you can imagine): 0 OVERALL QUALITY OF LIFE (Scale: 0 = as bad as can be; 10 = as good as can be): 8 OBJECTIVE Temp 36.7 ??C (Temporal) Wt 106 kg PHYSICAL EXAMINATION General: Alert and oriented, in no apparent distress. Skin: minimal pink toned skin to left chest wall. Hyperpigment and dryness noted to left axilla. Noareas desquamation. ASSESSMENT / PLAN #1 Clinical stage IB (cT2, cN1, cM0, G3, ER+, MO+, HER2+) invasive ductal carcinoma of the left [...] 2023. Patient is tolerating treatment well overall. Patient will leave Mepitel in place for 1-2 weeks post completion of radiation therapy. Once Mepitel falls off patient can apply Mometasone twice daily to treatment field and lotion/Aquaphor 2-3 times daily. If desquamation occurs the patient should stop Mometasone and begin vinegar soaks and Xeroform dressing changes. I reviewed Moist Skin Reaction pamphlet in detail with patient today. I have provided her samples of Pro Net, Xeroform and Telfa today. Patient will have a follow up appointment with Dr. Triana in 3 weeks. Patient has a physical therapy appointment scheduled for one month post radiation treatment at [facility]. Follow up with Dr. Lebron will be on an as needed basis. She will continue with radiation treatment as planned. She can contact our care team with any questions or concerns. Toxicities reviewed with Dr. Lebron. Signed by: Zulema Salinas R.N. 10/23/2023 2:51 PM CDT documented in this encounter Plan of Treatment Scheduled Orders Name Type Priority Associated Diagnoses Orde r Schedule Management Visit Radiation Oncology Routine Malignant Neoplasm Of Breast Female Left (HCC) Once for 1 Occurrences starting 10/23/2023 until 10/23/2023 documented as of this encounter Visit Diagnoses Diagnosis Malignant Neoplasm Of Breast Female Left (HCC) documented in this encounter
--- OUTSIDE RECORDS SUMMARY | 2024-01-04 09:25 | XMS_ITS | Encounter Summary ---
Author Organization [facility] Address [address] [place] [address] Care Team Providers Care Heel Seat Fitter Machine Name Role Phone Unavailable Primary Care Provider Unavailabl e Reason for Visit * Radiation Therapy (Routine) - Authorized Specialty Diagnoses / Procedures Referred By Aniyah lackey Referred To Contact Diagnoses Malignant Neoplasm Of Breast Female Left (HCC) Procedures Prior Auth Rad Tx [place] RADTN TX DEL >=1 MEV COMPLEX 3D Jennifer Lebron M.D. [address] [place] [address] [facility] Referral ID Status Reason Start Date Expiration Date V isits Requested Visits Authorized [id number] Authorized 08/13/2023 07/03/2024 30 30 Encounter Details Date Type Department Care Team (Latest Contact Info) Description 10/03/2023 2:18 PM CDT - 10/03/2023 11:59 PM CDT Hospital Encounter Department of Radiation Oncology in [place], [place] [address] [place] [phone] Jennifer Lebron M.D. [address] [place] [phone] Discharge Disposition: Home or Self Care Social History Tobacco Use Types Packs/Day Years Used Date Smoking Tobacco: Never Smokeless Tobacco: Never Alcohol Use Standard Drinks/Week Comments Not Currently 0 (1 standard drink = 0.6 oz pur e alcohol) [facility] Utilities Answer Date Recorded In the past 12 months has [employer] electric, gas, oil, or water company threatened [...] your living situation today? I have a [facility] place to live 09/09/2023 Sex and Gender Information Value Date Recorded Sex Assigned at Female 07/04/2023 4:23 PM INTEGRATION ENGINEER Gender Identity Female 07/04/2023 4:23 PM INTEGRATION ENGINEER Sexual Orientation Straight 07/04/2023 4: 23 PM INTEGRATION ENGINEER documented as of this encounter Medications at [...]
--- OUTSIDE RECORDS SUMMARY | 2024-01-04 09:25 | XMS_ITS | Encounter Summary ---
Author Organization [facility] Address [address] [place] [address] Care Team Providers Care Rubber Goods Inspector Tester Name Role Phone Unavailable Primary Care Provider Unavailabl e Reason for Referral * Specialty Diagnoses / Procedures Referred By Aniyah lackey Referred To Contact Dipti Castelan P.A.-C., M.S. [address] [place] [phone] [facility] Region Referral ID Status Reason Start Date Expiration Date Visits Re quested Visits Authorized Encounter Details Date Type Department Care Team (Latest Contact Info) Description 09/28/2023 10:06 AM CDT - 09/28/2023 3:12 PM CDT Hospital Encounter Department of Radiation Oncology in [place], [place] [address] [place] [phone] Jennifer Lebron M.D. [address] [place] [phone] Anamaria Garrison R.N. [address] [place] [phone] Malignant Neoplasm Of Breast Female Left (HCC) Discharge Disposition: Home or Self Care Social History Tobacco Use Types Packs/Day Years Used Date Smoking Tobacco: Never Smokeless Tobacco: Never Alcohol Use Standard Drinks/Week Comments Not Currently 0 (1 standard drink = 0.6 oz pur e alcohol) [facility] Utilities Answer Date Recorded In the [...] Date Recorded Employment status Working with temporary [employer] tions 09/09/2023 Housing Stability Answer Date Recorded What is your living situation today? I have a [facility] place to live 09/09/2023 Sex and Gender Information Value Date Recorded Sex Assigned at Female 07/04/2023 4:23 PM EARLY INTERVENTION SPECIALIST Gender Identity Female 07/04/2023 4:23 PM EARLY INTERVENTION SPECIALIST Sexual Orientation Straight 07/04/2023 4: 23 PM EARLY INTERVENTION SPECIALIST documented as of this encounter Last Filed Vital Signs Vital Sign Reading Time Taken Comments Blood Pressure - - Pulse - - Temperature - - Respiratory Rate - - Oxygen Saturation - - Inhaled Oxygen Concentration - - Weight 107 kg (235 lb 14.3 oz) 09/28/2023 3:00 P M CDT Height - - Body [...] this encounter Progress Notes * Anamaria Garrison R.N. - 09/28/2023 10:45 AM CDT Patient was educated on side effects of radiation therapy. Their questions were answered to the best of my ability. The patient was encouraged to contact the team at any point, with questions or concerns. documented in this encounter Plan of Treatment Scheduled Referrals Name Type Priority Associated Diagnoses Order Schedule Radiation Oncology - Nurse education visit (clinic) Outpatient Referral Routine Malignant Neoplasm Of Breast Female Left (HCC) Once for 1 Occurrences starting 09/28/2023 until 09/28/2023 documented as of this encounter Visit Diagnoses Diagnosis Malignant Neoplasm Of Breast Female Left (HCC) documented in this encounter
--- OUTSIDE RECORDS SUMMARY | 2024-01-04 09:26 | XMS_ITS | Clinical Summary ---
Author Organization [facility] Address [address] [place] [address] Care Team Providers Care Member Services Representative Name Role Phone No Ref-Primary, Physician Primary Care Provider Allergies Active Allergy Reactions Criticality Noted Date Comments Cefaclor 06/14/2017 Erythromycin 06/14/2017 Penicillins 06/14/2017 Medications Medication Sig Dispensed Refills Start Date End Date Status albuterol (PROAIR HFA/PROVENTIL HFA/VENTOLIN HFA) 108 (90 BASE) MCG/ACT Inhaler Inhale 2 puffs into the lungs every 6 hours Active Social History Tobacco Use Types Packs/Day Years Used Date Smoking Tobacco: Never Assessed Sex and Gender Information Value Date Recorded Sex Assigned at Not on file Gender Identity Not on file Sexual Orientation Not on file Last Filed Vital Signs Vital Sign Reading Time Taken Comments Blood Pressure 146/73 06/14/2017 10:51 PM SIDE GUIDER Pulse 80 06/14/2017 9:54 PM SIDE GUIDER Temperature 36.7 ??C (98.1 ??F) 06/14/2017 9:54 PM CS T Respiratory Rate - - Oxygen Saturation 100% 06/14/2017 9:54 PM SIDE GUIDER Inhaled Oxygen Concentration - - Weight - - Height - - Body Mass Index - - Plan of Treatment Not on file Care Teams Member Services Representative Relationship Specialty Start Date End Date No Ref-Primary, Physician PCP - General 06/14/17
--- OUTSIDE RECORDS SUMMARY | 2024-01-04 09:26 | XMS_ITS | Encounter Summary ---
Author Organization [facility] Address [address] [place] [address] Care Team Providers Care Community Engagement Manager Name Role Phone Unavailable Primary Care Provider Unavailabl e Reason for Visit * Radiation Therapy (Routine) - Authorized Specialty Diagnoses / Procedures Referred By Aniyah lackey Referred To Contact Diagnoses Malignant Neoplasm Of Breast Female Left (HCC) Procedures Prior Auth Rad Tx [place] RADTN TX DEL >=1 MEV COMPLEX 3D Jennifer Lebron M.D. [address] [place] [address] [facility] Referral ID Status Reason Start Date Expiration Date V isits Requested Visits Authorized [id number] Authorized 08/13/2023 07/03/2024 30 30 Encounter Details Date Type Department Care Team (Latest Contact Info) Description 09/27/2023 10:08 AM CDT - 09/27/2023 11:59 PM CDT Hospital Encounter Department of Radiation Oncology in [place], [place] [address] [place] [address] Jennifer Lebron M.D. [address] [place] [phone] Discharge Disposition: Home or Self Care Social History Tobacco Use Types Packs/Day Years Used Date Smoking Tobacco: Never Smokeless Tobacco: Never Alcohol Use Standard Drinks/Week Comments Not Currently 0 (1 standard drink = 0.6 oz pur e alcohol) [facility] Utilities Answer Date Recorded In the past 12 months has [employer] electric, gas, oil, or water company threatened [...] your living situation today? I have a [facility] place to live 09/09/2023 Sex and Gender Information Value Date Recorded Sex Assigned at Female 07/04/2023 4:23 PM COUNTER HOP Gender Identity Female 07/04/2023 4:23 PM COUNTER HOP Sexual Orientation Straight 07/04/2023 4: 23 PM COUNTER HOP documented as of this encounter Medications at [...]
--- OUTSIDE RECORDS SUMMARY | 2024-01-04 09:26 | XMS_ITS | Referral Summary ---
Author Organization [facility] Address [address] [place] [address] Care Team Providers Care Core Stacker Name Role Phone No Ref-Primary, Physician Primary [...] Comments Blood Pressure 146/73 06/14/2017 10:51 PM AUDITOR INTERNAL Pulse 80 06/14/2017 9:54 PM AUDITOR INTERNAL Temperature 36.7 ??C (98.1 ??F) 06/14/2017 9:54 PM CS T Respiratory Rate - - Oxygen Saturation 100% 06/14/2017 9:54 PM AUDITOR INTERNAL Inhaled Oxygen Concentration - - Weight - - Height - - Body Mass Index - - Plan of Treatment Not on file Care Teams Core Stacker Relationship Specialty Start Date End Date No Ref-Primary, Physician PCP - General 06/14/17
--- OUTSIDE RECORDS SUMMARY | 2024-01-04 09:26 | XMS_ITS | Clinical Summary ---
Author Organization [employer] [facility] Address [place], [place] [address] Care Team Providers Care Foot Drill Operator Name Role Phone Sara Javier MD Primary Care Provider [phone] Allergies Active Allergy Reactions Criticality Noted Date Comments Adhesive Rash 05/21/2023 Cefaclor Rash 06/26/2006 Chlorhexidine Hives,Itching 05/22/2023 Clindamycin GI Upset,Nausea Only 07/10/2023 Throat pain Dextromethorphan Dizziness High 05/21/2023 Erythromycin GI Upset 06/26/2006 Penicillins 06/26/2006 Phenylephrine Dizziness High 05/21/2023 Wrz-Zjhvwssju-Co-Acetaminoph en Dizziness 06/26/2006 Medications Medication Sig Dispensed Refills Start Date End Date Status ALBUTEROL SULFATE 90 MCG/ACTUATION AEROSOL INHALERIndications:Acu te bronchitis inhale 1 puff by inhalation route every 4-6 hours as needed 1 canister 12 08/01/2006 Active diphenoxylate-atropine , 2.5-0.025 mg, (LOMOTIL) 2.5-0.025 mg tablet Take 1 Tablet by mouth 2 times daily if needed for Diarrhea. Active acetaminophen (TYLENOL) 500 mg capsule Take 1,000 mg by mouth every 6 hours if needed. Active aspirin-acetaminophen- caffeine (EXCEDRIN EX STR) 250-250-65 mg Take 1 Tablet by mouth every 6 hours if needed. Active cetirizine (ZyrTEC) 10 mg tablet Take 10 mg by mouth once daily. Active diphenhydrAMINE (BenadryL) 25 mg capsule Take 25 mg by mouth every 4 hours if needed. Active loperamide (IMODIUM) 2 mg tablet Take 2 mg by mouth 4 times daily if needed. Active ondansetron (ZOFRAN) Take 2 mg by mouth every 8 hours if needed. Active rx prochlorperazine (COMPAZINE) 5 mg tablet (ED DC MED) Take 5 mg by mouth every 6 hours if needed. Active Active Problems Problem Noted Date Diagnosed Date Malignant neoplasm of left b reast in female, estrogen receptor positive 06/07/2023 Allergic rhinitis, cause unspecified 06/26/2006 Unspecified asthma(493.90) 06/26/2006 Encounters Date Type Department Care Team Description 10/11/2023 Telephone [facility] [address] [place] [address] Sir Willisi Bushra, DO Lab (Invalid flu and COVID-19 test) 10/09/2023 3:25 PM CDT Office Visit [facility] [address] [place] [address] Al[place] Rosaura Bushra, DO Throat Pain/problem (Sore throat x5 days) 10/09/2023 Travel from Last 3 Months Immunizations Name Administration Dates Next Due MMR 10/27/1992 Td (Age >=7 Years) 05/12/2002,11/05/1991 Tdap 02/01/2019 Family History * Patient is adopted Medical History Relation Name Comments Cancer-colon Father late 40's Cancer-breast No Family History Patient a dopted, but does not believe there is a family history of breast cancer Cancer-ovarian No Family History Relation Name Status Comments Father Social History Tobacco Use Types Packs/Day Years Used Date Smoking Tobacco: Never Smokeless Tobacco: Never Alcohol Use Standard Drinks/Week Comments No 0 (1 standard drink = 0.6 oz pur e alcohol) occ rare PHQ-2 Answer Date Recorded PHQ-2 TOTAL SCORE 0 12/28/2022 Social Connections Answer Date Recorded Frequency of Communication with Friends and Fami ly Not on file 12/31/2023 Financial Resource Strain Answer Date R ecorded Difficulty of Paying Living Expenses 3 12/28/2022 Difficulty of Paying Living Expenses Not on file 12/28/2022 Food Insecurity Answer Date Recorded Worried About Running Out of Food in the Last Ye ar 1 12/28/2022 Transportation Needs Answer Date Record ed Lack of Transportation (Medical) 1 12/28/2022 Housing Stability Answer Date Recorded Unable to Pay for Housing in the Last Year 1 12/28/2022 Sex and Gender Information Value Date Recorded Sex Assigned at Female 07/05/2021 9:01 PM WRAPPER CASER Gender Identity Female 07/05/2021 9:01 PM WRAPPER CASER Sexual Orientation Straight 07/05/2021 9: 01 PM WRAPPER CASER Obstetrics History Last Filed Vital Signs Vital Sign Reading Time Taken Comments Blood Pressure 131/83 10/09/2023 3:37 PM CDT Pulse 90 10/09/2023 3:37 PM CDT Temperature 36.8 ??C (98.3 ??F) 08/29/2006 9:40 AM CS T Respiratory Rate 20 08/01/2006 7:30 PM WRAPPER CASER Oxygen Saturation 97% 10/09/2023 3:37 PM CDT Inhaled Oxygen Concentration - - Weight 105.9 kg (233 lb 8 oz) 10/09/2023 3:37 PM CDT Height 162.6 cm (5' 4) 06/07/2023 11:01 AM WRAPPER CASER Body Mass Index 40.08 06/07/2023 11:01 AM WRAPPER CASER Plan of Treatment Health Maintenance Due Date Last Done Comments HIV for age 15-65 1990 Hepatitis C screening for age 18-79 1993 Pap test for age 21-65 12/15/2008 12/15/2005, 2004 Colonoscopy through age 75 2020 Lipids for age 45-75 2020 12/15/2005 COVID-19 vaccine series ( season) 2023 03/23/2022, 05/11/2021, 11/03/2020, Additional history exists Depression screening for age 12+ 12/29/2023 12/28/2022 Mammogram for age 45-75 12/29/2023 12/28/2022 Influenza for age 9-49 03/02/2024 BMI (ht and wt on same day) for age 18+ 06/07/2024 06/07/2023, 02/11/2019 Tetanus booster 02/01/2029 02/01/2019, 05/02, 11/05/1991 Tdap Completed 02/01/2019 Pneumococcal series for age 6-64 Aged Out No longer eligible based on patient's age to complete this topic Procedures Procedure Name Priority Date/Time Associated Diagnosis Comments INFLUENZA A/B PCR Routine 10/09/2023 4:0 0 PM CDT Sore throat COVID-19 MOLECULAR Routine 10/09/2023 4: 00 PM CDT Sore throat STREP A PCR Routine 10/09/2023 3:40 PM CDT Sore throat THROAT RAPID STREP A WITH REFLEX Routine 10/09/2023 3:40 PM CDT Sore throat XR MAMMO JASWANT BILAT DIAG Routine 12/28/2022 2:17 PM CDT Mass overlapping multiple quadrants of left breast GYNECOLOGICAL PANEL Timed 12/15/2005 1 2:00 PM CDT LIPID PANEL Timed 12/15/2005 9:41 AM CDT from Last 3 Months or Most Recently Relevant to Health Maintenance Results * (ABNORMAL) COVID-19 MOLECULAR (10/09/2023 4:00 PM CDT) COVID 19 [facility] MOLECULAR Invalid; suggest new specimen.(A) Negative 10/10/2023 5:20 PM CDT [facility] [employer] LABORATORY-CE NTRAL LABORATORY TESTING LABORATORY [facility] Laboratory 10/10/2023 5:20 PM CDT [facility] Comment:Specimen submitted t o [facility] Laboratory for testing. Other SPECIMEN FROM NASAL FOSSAE / Unknown Non-Blood / Unknown 10/09/2023 4:00 PM CDT 10/09/2023 4:07 PM CDT Narrative [facility] LABORAT[facility]-CENTRAL LABORATORY - 10/10/2023 5:20 PM CDT Canceled- Interfering Substance Rosaura Willis DO MICROBIOLOGY [facility]-CENTRAL LABORATORY [address] [place] [address], * (ABNORMAL) INFLUENZA A/B PCR (10/09/2023 4:00 PM CDT) Pathologist [facility] INFLUENZA A PCR Invalid; suggest new specimen.(A ) 10/10/2023 5:20 PM CDT [facility] TRAL LABORATORY INFLUENZA B PCR Invalid; suggest new specimen.(A ) 10/10/2023 5:20 PM CDT [facility] TRAL LABORATORY Other SPECIMEN FROM NASAL FOSSAE / Unknown Non-Blood / Unknown 10/09/2023 4:00 PM CDT 10/09/2023 4:07 PM CDT Narrative [facility] - 10/10/2023 5:20 PM CDT Canceled- Interfering Substance Rosaura AllenFosbury MICROBIOLOGY Performing Organization Address City/[facility]/ZIP Co de Phone Number [facility] [address] [place] [address], * STREP A PCR (10/09/2023 3:40 PM CDT) Pathologist [facility] GROUP A STREP Negative 10/09/2023 10:52 PM CDT [facility] TRA LABORATORY Throat SPECIMEN FROM THROAT / Unknown Non-Blood / Unknown 10/09/2023 3:40 PM CDT 10/09/2023 3:52 PM CDT [employer] MICROBIOLOGY Performing Organization Address [facility]/ZIP Co de Phone Number [facility] [address] [place] [address], [place] * THROAT RAPID STREP A WITH REFLEX (10/09/2023 3:40 PM CDT) Pathologist [facility] STREP A ANTIGEN Negative 10/09/2023 3:52 PM CDT [facility] Comment:PCR to follow. Throat SPECIMEN FROM THROAT / Unknown Non-Blood / Unknown 10/09/2023 3:40 PM CDT 10/09/2023 3:44 PM CDT [employer] MICROBIOLOGY Performing Organization Address City/[facility]/ZIP Co de Phone Number [facility] [address] [place] [address], * XR MAMMO JASWANT BILAT DIAG (12/28/2022 2:17 PM CDT) Anatomical Region Laterality Modality BREASTS, Breast Left, Breast Right Bilateral Mammography Impressions 12/28/2022 3:57 PM CDT Suspicious mass LEFT breast 2 o'clock 5 cm from the nipple measuring 3.1 cm along with suspicious LEFT axillary lymph nodes. RECOMMENDATIONS: Ultrasound-guided core needle biopsy of the breast mass and LEFT axillary lymph node. Results and recommendations discussed with the patient. BI-RADS Category 4: Suspicious Dictated by: Prashant White MD @12/28/2022 2:36:19 PM / [facility] PATIENTS: You will also receive a letter with your examination results in an easy to read format. ??If you have questions about your results, please contact your referring provider. Narrative 12/28/2022 3:57 PM CDT For Patients: As a result of the Century Cures Act, medical imaging exams and procedure reports are released immediately into your electronic medical record. ??You may view this report before your referring provider. ?? If you have questions, please contact your health care provider. DIGITAL DIAGNOSTIC BILATERAL MAMMOGRAM USING TOMOSYNTHESIS AND COMPUTER-AIDED DETECTION, 12/28/2022 LEFT BREAST ULTRASOUND, 12/28/2022 CLINICAL HISTORY: LEFT breast lump. COMPARISON: None. TECHNIQUE: Digital BILATERAL mammogram in four projections. ??Tomosynthesis and CAD utilized. Real-time ultrasound imaging of LEFT breast with imaging documentation. Scanning was performed by both the technologist and the radiologist. BREAST COMPOSITION: There are areas of scattered fibroglandular density. FINDINGS: 3D CC/MLO BILATERAL mammogram images submitted. Ill-defined mass with pleomorphic calcifications and architectural distortion upper outer quadrant LEFT breast along with LEFT axillary adenopathy. RIGHT breast mammogram images appear normal. Targeted LEFT breast ultrasound performed at 2 o'clock 5 cm from the nipple. In this location there is an ill-defined irregular heterogeneously hypoechoic solid mass measuring approximately 3.1 x 2.7 cm. Enlarged LEFT axillary lymph nodes are present measuring up to 2.0 cm. Sara Javier MD MAMMO * GYNECOLOGICAL PANEL (12/15/2005 12:00 PM CDT) CYTOLOGY ??CYTOPATHOLOGY REPORT ??[facility] [employer]/[facility] ?? Status: Final Report ? [id number] ?? CLINICAL INFORMATION ?LMP ? : 11-17-05 ?Previous Pap Date ? : 07-11-04 ?Previous PAP Dx ? : Negative ?Previous Keystone/bx date : None ?Hormone Usage ? : alesse ?Appearance of Cervix ??: NORMAL ?Keystone/Bx done today ?: No ?HPV Request ? : Reflex HPV test if PAP Dx ASCUS ?? SPECIMEN SOURCE ?: Cervical/vaginal ThinPrep Vial, screening ?? SPECIMEN ADEQUACY ?: Satisfactory for evaluation No endocervical ?component seen. ? INTERPRETATION/RES ULT: ?Negative for intraepithelial lesion or malignancy. ? Cytology 1st Screener : ??tll ?? Signed by: ? tll ?? This specimen was screened by the FDA approved ThinPrep Imaging ?? System and manually reviewed. ?? NOTE: The Pap test is a screening technique, not a diagnostic ?? procedure. It is used primarily to screen for squamous cancers and ?? precursor lesions. Published studies have shown that it is subject to ?? both false negative and false positive results. The pap test should ?? not be used as the sole means to diagnose or exclude pre-malignant and ?? malignant lesions. ?? COLLECTED: 12/15/05 ?? ACCESSIONED: 12/18/05 ?? SIGNED: 12/27/05 [facility] 12/15/2005 12:0 0 PM CDT 12/18/2005 9:37 AM CDT Leila Clement NP PATHOLOGY/CYTOLOGY [facility] INTERNAL ZIP [address] [place] [address] * LIPID PANEL (12/15/2005 9:41 AM CDT) CHOLESTEROL,TOTAL 172 110 - 199 mg/dL [facility] TRIGLYCERIDES 137 <150 mg/dL [facility] HDL CHOLESTEROL 47 >40 mg/dL [facility] CHOL/HDL RATIO 3.66 <4.51 [facility] LDL CHOLESTEROL 98 <131 mg/dL [facility] PATIENT STATUS Fasting [facility] 12/15/2005 9:41 AM CDT 12/15/2005 9:20 AM CDT Leila Clement NP CHEMISTRY [facility] [address] [place] [address] from Last 3 Months or Most Recently Relevant to Health Maintenance Care Teams Foot Drill Operator Relationship Specialty Start Date End Date Sara Javier MD [address] [place] [address] PCP - General Family Practice 01/19/23
--- OUTSIDE RECORDS SUMMARY | 2024-01-04 09:26 | XMS_ITS | Encounter Summary ---
Author Organization [facility] Address [address] [place] [address] Care Team Providers Care Auto Job Estimator Name Role Phone Unavailable Primary Care Provider Unavailabl e Reason for Visit * Radiation Therapy (Routine) - Authorized Specialty Diagnoses / Procedures Referred By Aniyah lackey Referred To Contact Diagnoses Malignant Neoplasm Of Breast Female Left (HCC) Procedures Prior Auth Rad Tx [place] RADTN TX DEL >=1 MEV COMPLEX 3D Jennifer Lebron M.D. [address] [place] [address] [facility] Referral ID Status Reason Start Date Expiration Date V isits Requested Visits Authorized [id number] Authorized 08/13/2023 07/03/2024 30 30 Encounter Details Date Type Department Care Team (Latest Contact Info) Description 09/28/2023 10:05 AM CDT Hospital Encounter Department of Radiation Oncology in [place], [place] [address] [place] [phone] Jennifer Lebron M.D. [address] [place] [phone] Discharge Disposition: Home or Self Care Social History Tobacco Use Types Packs/Day Years Used Date Smoking Tobacco: Never Smokeless Tobacco: Never Alcohol Use Standard Drinks/Week Comments Not Currently 0 (1 standard drink = 0.6 oz pur e alcohol) [facility] Utilities Answer Date Recorded In the [...] your living situation today? I have a [facility] place to live 09/09/2023 Sex and Gender Information Value Date Recorded Sex Assigned at Female 07/04/2023 4:23 PM EMERGENCY MEDICAL TECHNICIAN BASIC Gender Identity Female 07/04/2023 4:23 PM EMERGENCY MEDICAL TECHNICIAN BASIC Sexual Orientation Straight 07/04/2023 4: 23 PM EMERGENCY MEDICAL TECHNICIAN BASIC documented as of this encounter Medications at [...]
--- OUTSIDE RECORDS SUMMARY | 2024-01-04 09:26 | XMS_ITS | Encounter Summary ---
Author Organization [facility] Address [address] [place] [address] Care Team Providers Care Alum Plant Operator Name Role Phone Unavailable Primary Care Provider Unavailabl e Reason for Visit * Radiation Therapy (Routine) - Authorized Specialty Diagnoses / Procedures Referred By Aniyah lackey Referred To Contact Diagnoses Malignant Neoplasm Of Breast Female Left (HCC) Procedures Prior Auth Rad Tx [place] RADTN TX DEL >=1 MEV COMPLEX 3D Jennifer Lebron M.D. [address] [place] [address] [facility] Referral ID Status Reason Start Date Expiration Date V isits Requested Visits Authorized [id number] Authorized 08/13/2023 07/03/2024 30 30 Encounter Details Date Type Department Care Team (Latest Contact Info) Description 09/26/2023 10:07 AM CDT - 09/26/2023 11:59 PM CDT Hospital Encounter Department of Radiation Oncology in [place], [place] [address] [place] [phone] Jennifer Lebron M.D. [address] [place] [phone] Discharge Disposition: Home or Self Care Social History Tobacco Use Types Packs/Day Years Used Date Smoking Tobacco: Never Smokeless Tobacco: Never Alcohol Use Standard Drinks/Week Comments Not Currently 0 (1 standard drink = 0.6 oz pur e alcohol) [facility] Utilities Answer Date Recorded In the past 12 months has [employer], gas, oil, or water company threatened [...] your living situation today? I have a [facility] place to live 09/09/2023 Sex and Gender Information Value Date Recorded Sex Assigned at Female 07/04/2023 4:23 PM TAPE CALENDER Gender Identity Female 07/04/2023 4:23 PM TAPE CALENDER Sexual Orientation Straight 07/04/2023 4: 23 PM TAPE CALENDER documented as of this encounter Medications at [...]
--- NOTE | 2024-01-04 09:30 | PE_ITS ---
[facility] [address] [facility] [address] Phone:?[phone] Fax:?[phone] Referring Physician Information: Marj Chacko PA-C [address] [facility] [address] Phone:?[phone] Fax:?[phone] Patient:Brittany Hernandez D.O.B:?1975 Sex:?Female Phone:?[phone] [facility] MRN:?[id number] Exam Date:?01/04/2024 EXAM: PET/CT EYES TO THIGHS, CANCER INITIAL STAGING CLINICAL INFORMATION: Breast cancer. TECHNICAL INFORMATION: Helical acquisition of data was obtained from the orbits to the upper thighs with reconstruction of 3.75 mm thick images at 3.[address] data was used for attenuation correction. PET scanning was performed through the same anatomic range 62 minutes following administration of 11.35 mCi of 18-FDG delivered intravenously. The patient's glucose at the time of the injection was 132 mg/dL. PET, CT and PET/CT fusion images are interpreted using a computer viewing workstation. PET, CT and PET/CT fusion images were archived and saved in the patient's permanent medical record. COMPARISON: Breast MRI from 06/07/2023, nuclear bone scan from 01/30/2023, CT CAP from 01/16/2023. INTERPRETATION: Head and Neck: There are no abnormal hypermetabolic foci within the head or neck. There is physiologic uptake in the intracranial soft tissues. Chest: There are no abnormal hypermetabolic foci within the chest. Background mediastinal blood pool uptake has a maximum SUV of 2.75. No lung nodules or masses detected on this free-breathing exam. No lymphadenopathy detected. Right chest port catheter terminates at the cavoatrial junction. Bilateral tissue expanders in both breasts. Subpleural fibrosis in the anterior left lung is consistent with prior radiotherapy. Abdomen and Pelvis: There are no abnormal hypermetabolic foci within the abdomen or pelvis. Background hepatic parenchymal uptake has a maximum SUV of 5.18. There is physiologic excretion of radiotracer in the urine and bowel. Skeleton, Musculature, and Integument: No abnormal hypermetabolic foci within the skeleton. No danie osteoblastic or osteolytic disease. CONCLUSION: No abnormal FDG uptake to indicate active malignancy. Electronically signed on 01/07/2024 12:27:00 PM by Shoaib Woods M.D.
== END 2024-01-04 09:18 | disposition home or self-care (01) ==
LOC: RAD 09:17
PROVIDERS: PCP Family Medicine; Visit Provider Physician Assistant
DX: C50.412 Malignant neoplasm of upper-outer quadrant of left female breast (principal); R63.4 Abnormal weight loss; R53.83 Other fatigue; R68.81 Early satiety; Z17.0 Estrogen receptor positive status [ER+]
CPT/HCPCS: 78815; A9552

== ENCOUNTER 2024-01-14 09:30 | Outpatient (RCR) | payer OTHER, SELFPAY ==
--- NOTE | 2023-07-27 10:23 | URNOTE ---
ado-trastuzumab emtansine (kadcyla) [id number] has been approved 07/30/2023-01/27/2024.
[2023-07-30 11:36] VITALS: BP 135/80; PULSE 75; RESP 16; TEMP 36.1; O2SAT 93
[2023-07-30 12:11] LABS: Basophils Absolute Auto 0.02 K/uL (0.00-0.30); Basophils Percent Auto 0.3 % (0.0-3.0); Eosinophils Percent Auto 6.6 % (0.0-7.0); Hematocrit 30.8 % (33.0-51.0); Hemoglobin* 9.7 gm/dL (12.0-16.0); Immature Granulocytes Abs Auto 0.01 K/uL (0.00-0.30); Immature Granulocytes Pct Auto 0.2 %; Lymphocytes Absolute Auto 1.58 K/uL (0.90-2.90); Lymphocytes Percent Auto 26.2 % (20-44); Mean Corpuscular HGB Conc 32 gm/dL (32-36); Mean Corpuscular Hemoglobin 27 pg (26-34); Mean Corpuscular Volume 85 fL (80-100); Monocytes Percent Auto 9.6 % (0.0-11.0); Neutrophils Absolute Auto 3.44 K/uL (1.7-7.0); Neutrophils Percent Auto 57.1 % (42.0-72.0); Platelet Count* 235 K/uL (140-440); RDW Coefficient of Variation % 13.4 % (11.5-15.5); Red Blood Count 3.62 m/uL (4.00-5.20); White Blood Count* 6.03 K/uL (4.50-11.00)
[2023-07-30 12:12] LABS: Slide Review Reflex No
[2023-07-30 12:25] LABS: Albumin* 3.8 g/dL (3.3-5.0); Chloride* 106 mmol/L (96-114); Sodium* 137 mmol/L (135-149)
[2023-07-30 12:28] LABS: Alanine Aminotransferase* 21 U/L (4-35); Alkaline Phosphatase* 83 U/L (40-150); Anion Gap 6 mEq/L (7-15); Aspartate Amino Transferase* 31 U/L (12-35); Bilirubin Total* 0.2 mg/dL (0.1-1.5); Blood Urea Nitrogen* 12 mg/dL (5-24); Carbon Dioxide* 25 mmol/L (20-32); Creatinine* 0.6 mg/dL (0.5-1.5); Estimated Glomerular Filt Rate 111 ml/min; Glucose* 145 mg/dL (60-115); Total Protein* 6.6 g/dL (6.0-8.3)
[2023-07-30 12:29] LABS: Calcium* 8.9 mg/dL (8.4-10.6)
[2023-07-30] MEDS: dexAMETHasone 10 MG in 0.9 % SODIUM CHLORIDE 100 ml 100 ML 404 MG IVPB (13:01)
[2023-07-30] MEDS: diphenhydrAMINE 25 MG, FAMOTIDINE 20 MG in 0.9 % SODIUM CHLORIDE 100 ml 100 ML 410 MG IVPB (13:23)
[2023-07-31 19:16] LABS: Estradiol Premenol Female 40 pg/mL
[2023-08-20 11:12] LABS: Basophils Absolute Auto 0.03 K/uL (0.00-0.30); Basophils Percent Auto 0.5 % (0.0-3.0); Eosinophils Absolute Auto 0.22 K/uL (0.00-0.50); Eosinophils Percent Auto 3.5 % (0.0-7.0); Hematocrit 35.2 % (33.0-51.0); Immature Granulocytes Abs Auto 0.01 K/uL (0.00-0.30); Immature Granulocytes Pct Auto 0.2 %; Lymphocytes Percent Auto 28.4 % (20-44); Mean Corpuscular HGB Conc 31 gm/dL (32-36); Mean Corpuscular Hemoglobin 25 pg (26-34); Mean Corpuscular Volume 80 fL (80-100); Monocytes Percent Auto 9.1 % (0.0-11.0); Neutrophils Percent Auto 58.3 % (42.0-72.0); Platelet Count* 249 K/uL (140-440); RDW Coefficient of Variation % 14.4 % (11.5-15.5); White Blood Count* 6.34 K/uL (4.50-11.00)
[2023-08-20 11:27] LABS: Chloride* 105 mmol/L (96-114)
[2023-08-20 11:28] LABS: Potassium* 3.7 mmol/L (3.6-5.1); Sodium* 138 mmol/L (135-149)
[2023-08-20 11:30] LABS: Anion Gap 8 mEq/L (7-15); Aspartate Amino Transferase* 46 U/L (12-35); Bilirubin Total* 0.5 mg/dL (0.1-1.5); Carbon Dioxide* 25 mmol/L (20-32); Creatinine* 0.6 mg/dL (0.5-1.5); Estimated Glomerular Filt Rate 111 ml/min; Total Protein* 7.2 g/dL (6.0-8.3)
[2023-08-20 11:31] LABS: Alanine Aminotransferase* 28 U/L (4-35); Alkaline Phosphatase* 104 U/L (40-150); Blood Urea Nitrogen* 10 mg/dL (5-24); Calcium* 9.4 mg/dL (8.4-10.6); Glucose* 184 mg/dL (60-115)
[2023-08-20 11:32] LABS: Slide Review Reflex No
[2023-08-20] MEDS: SODIUM CHLORIDE 0.9 % (FLUSH) 10 ML SYRINGE IVF ×2 (12:20→13:58)
[2023-08-20] MEDS: 0.9 % SODIUM CHLORIDE 250 ml IV (12:20)
[2023-08-20] MEDS: dexAMETHasone 10 MG in 0.9 % SODIUM CHLORIDE 100 ml 100 ML 420 MG IVPB (12:33)
[2023-08-20] MEDS: diphenhydrAMINE 25 MG, FAMOTIDINE 20 MG in 0.9 % SODIUM CHLORIDE 100 ml 100 ML 420 MG IVPB (12:52)
[2023-08-20] MEDS: HEPARIN 500 UNIT/5 ML SYRINGE IVF (13:57)
--- NOTE | 2023-08-20 15:51 | ONC.NURNOTE ---
I spoke with patient prior to her infusion appointment. I explained that we are doing testing prior to each dose of chemotherapy. Patient states she is not sexually active and declines the test.
[2023-08-29 21:05] LABS: Estradiol Premenol Female 47 pg/mL
[2023-09-10 09:59] VITALS: BP 107/66; PULSE 75; RESP 16; TEMP 36.5; O2SAT 98
[2023-09-10 10:04] LABS: Basophils Absolute Auto 0.02 K/uL (0.00-0.30); Basophils Percent Auto 0.3 % (0.0-3.0); Eosinophils Absolute Auto 0.21 K/uL (0.00-0.50); Eosinophils Percent Auto 3.2 % (0.0-7.0); Hematocrit 35.1 % (33.0-51.0); Hemoglobin* 10.8 gm/dL (12.0-16.0); Immature Granulocytes Abs Auto 0.01 K/uL (0.00-0.30); Immature Granulocytes Pct Auto 0.2 %; Lymphocytes Absolute Auto 1.93 K/uL (0.90-2.90); Lymphocytes Percent Auto 29.8 % (20-44); Mean Corpuscular HGB Conc 31 gm/dL (32-36); Mean Corpuscular Hemoglobin 24 pg (26-34); Mean Corpuscular Volume 78 fL (80-100); Monocytes Percent Auto 9.9 % (0.0-11.0); Neutrophils Absolute Auto 3.66 K/uL (1.7-7.0); Neutrophils Percent Auto 56.6 % (42.0-72.0); Platelet Count* 263 K/uL (140-440); Red Blood Count 4.53 m/uL (4.00-5.20); White Blood Count* 6.47 K/uL (4.50-11.00)
[2023-09-10 10:09] LABS: Slide Review Reflex No
[2023-09-10 10:11] LABS: Albumin* 3.8 g/dL (3.3-5.0); Chloride* 105 mmol/L (96-114); Potassium* 3.8 mmol/L (3.6-5.1); Sodium* 136 mmol/L (135-149)
[2023-09-10 10:14] LABS: Alanine Aminotransferase* 34 U/L (4-35); Alkaline Phosphatase* 109 U/L (40-150); Anion Gap 6 mEq/L (7-15); Aspartate Amino Transferase* 53 U/L (12-35); Bilirubin Total* 0.4 mg/dL (0.1-1.5); Blood Urea Nitrogen* 12 mg/dL (5-24); Carbon Dioxide* 25 mmol/L (20-32); Creatinine* 0.6 mg/dL (0.5-1.5); Estimated Glomerular Filt Rate 111 ml/min; Glucose* 178 mg/dL (60-115); Total Protein* 6.9 g/dL (6.0-8.3)
[2023-09-10 10:15] LABS: Calcium* 9.2 mg/dL (8.4-10.6)
[2023-09-10] MEDS: dexAMETHasone 10 MG in 0.9 % SODIUM CHLORIDE 100 ml 100 ML 404 MG IVPB (11:19)
[2023-09-10] MEDS: 0.9 % SODIUM CHLORIDE 250 ml IV (11:19)
[2023-09-10] MEDS: diphenhydrAMINE 25 MG, FAMOTIDINE 20 MG in 0.9 % SODIUM CHLORIDE 100 ml 100 ML 410 MG IVPB (11:40)
[2023-09-10] MEDS: HEPARIN 500 UNIT/5 ML SYRINGE IVF (12:50)
[2023-09-10] MEDS: SODIUM CHLORIDE 0.9 % (FLUSH) 10 ML SYRINGE IVF (12:50)
[2023-10-02 09:17] LABS: Basophils Absolute Auto 0.01 K/uL (0.00-0.30); Basophils Percent Auto 0.2 % (0.0-3.0); Eosinophils Absolute Auto 0.21 K/uL (0.00-0.50); Eosinophils Percent Auto 3.7 % (0.0-7.0); Hematocrit 35.8 % (33.0-51.0); Hemoglobin* 11.1 gm/dL (12.0-16.0); Immature Granulocytes Abs Auto 0.01 K/uL (0.00-0.30); Immature Granulocytes Pct Auto 0.2 %; Lymphocytes Percent Auto 17.3 % (20-44); Mean Corpuscular HGB Conc 31 gm/dL (32-36); Mean Corpuscular Hemoglobin 23 pg (26-34); Mean Corpuscular Volume 75 fL (80-100); Monocytes Percent Auto 9.8 % (0.0-11.0); Neutrophils Absolute Auto 3.86 K/uL (1.7-7.0); Neutrophils Percent Auto 68.8 % (42.0-72.0); Platelet Count* 208 K/uL (140-440); RDW Coefficient of Variation % 15.9 % (11.5-15.5); Red Blood Count 4.77 m/uL (4.00-5.20); White Blood Count* 5.61 K/uL (4.50-11.00)
[2023-10-02 09:23] LABS: Slide Review Reflex No
[2023-10-02 10:16] LABS: Albumin* 3.9 g/dL (3.3-5.0)
[2023-10-02 10:18] LABS: Bilirubin Total* 0.4 mg/dL (0.1-1.5); Creatinine* 0.6 mg/dL (0.5-1.5); Estimated Glomerular Filt Rate 111 ml/min
[2023-10-02 10:19] LABS: Alanine Aminotransferase* 31 U/L (4-35); Alkaline Phosphatase* 106 U/L (40-150); Aspartate Amino Transferase* 48 U/L (12-35); Blood Urea Nitrogen* 15 mg/dL (5-24); Calcium* 9.3 mg/dL (8.4-10.6); Carbon Dioxide* 25 mmol/L (20-32); Glucose* 176 mg/dL (60-115)
[2023-10-02 10:48] LABS: Anion Gap 7 mEq/L (7-15); Chloride* 106 mmol/L (96-114); Potassium* 3.8 mmol/L (3.6-5.1); Sodium* 138 mmol/L (135-149)
[2023-10-02] MEDS: 0.9 % SODIUM CHLORIDE 250 ml IV (10:52)
[2023-10-02] MEDS: SODIUM CHLORIDE 0.9 % (FLUSH) 10 ML SYRINGE IVF ×2 (10:52→12:13)
[2023-10-02] MEDS: FAMOTIDINE 10 MG/ML inj 20 MG IVP (10:52)
[2023-10-02] MEDS: diphenhydrAMINE 25 MG in 0.9 % SODIUM CHLORIDE 100 ml 100 ML 402 MG IVPB (10:52)
[2023-10-02] MEDS: dexAMETHasone 10 MG in 0.9 % SODIUM CHLORIDE 100 ml 100 ML 404 MG IVPB (11:15)
[2023-10-02] MEDS: HEPARIN 500 UNIT/5 ML SYRINGE IVF (12:13)
[2023-10-22 09:55] LABS: Hemoglobin* 11.9 gm/dL (12.0-16.0); Mean Corpuscular Hemoglobin 23 pg (26-34); Mean Corpuscular Volume 75 fL (80-100); Red Blood Count 5.08 m/uL (4.00-5.20); White Blood Count* 4.48 K/uL (4.50-11.00)
[2023-10-22 09:56] LABS: Basophils Percent Auto 0.4 % (0.0-3.0); Lymphocytes Percent Auto 14.5 % (20-44); Mean Corpuscular HGB Conc 31 gm/dL (32-36); Monocytes Percent Auto 10.7 % (0.0-11.0); Neutrophils Percent Auto 70.4 % (42.0-72.0); Platelet Count* 191 K/uL (140-440); RDW Coefficient of Variation % 18.1 % (11.5-15.5)
[2023-10-22 10:08] LABS: Slide Review Reflex No
[2023-10-22 10:21] LABS: Chloride* 109 mmol/L (96-114); Potassium* 3.9 mmol/L (3.6-5.1); Sodium* 139 mmol/L (135-149)
[2023-10-22 10:23] LABS: Anion Gap 3 mEq/L (7-15); Aspartate Amino Transferase* 59 U/L (12-35); Bilirubin Total* 0.5 mg/dL (0.1-1.5); Carbon Dioxide* 27 mmol/L (20-32); Creatinine* 0.6 mg/dL (0.5-1.5); Estimated Glomerular Filt Rate 111 ml/min; Total Protein* 7.4 g/dL (6.0-8.3)
[2023-10-22 10:24] LABS: Alanine Aminotransferase* 35 U/L (4-35); Alkaline Phosphatase* 106 U/L (40-150); Blood Urea Nitrogen* 12 mg/dL (5-24); Calcium* 9.5 mg/dL (8.4-10.6); Glucose* 173 mg/dL (60-115)
[2023-10-22 10:40] LABS: HCG Quantitative* 2.59 mIU/mL
[2023-10-22] MEDS: SODIUM CHLORIDE 0.9 % (FLUSH) 10 ML SYRINGE IVF ×2 (10:40→13:15)
[2023-10-22] MEDS: 0.9 % SODIUM CHLORIDE 250 ml IV (11:30)
[2023-10-22] MEDS: FAMOTIDINE 10 MG/ML inj 20 MG IVP (11:42)
[2023-10-22] MEDS: dexAMETHasone 10 MG in 0.9 % SODIUM CHLORIDE 100 ml 100 ML 420 MG IVPB (11:42)
[2023-10-22] MEDS: diphenhydrAMINE 25 MG in 0.9 % SODIUM CHLORIDE 100 ml 100 ML 402 MG IVPB (11:59)
[2023-10-22] MEDS: HEPARIN 500 UNIT/5 ML SYRINGE IVF (13:15)
--- NOTE | 2023-10-22 15:39 | ONC.NURNOTE ---
Pt here today for Kadcyla treatment, noting steady increase in myalgias/neuropathy in bilateral feet and hands, worse in feet. Reviewed with Sharona Camacho APRN; see her note. The following instructions given to pt. Pt used cryotherapy set today for treatment as well. RTC with next tx in 3 weeks. Light compression socks: 10-15 mmhg?? *Use on days around treatment ? ? Topical creams ? try 1 at a time for ~2 days to determine which helps? Capsaicin ? use gloves to apply, avoid touching face/eyes? Biofreeze? Menthol? Voltaren ? also good for achey joints; contains ibuprofen family of meds? ? Ice packs with treatment ? [facility] to provide? ?
[2023-11-12 10:07] LABS: Basophils Absolute Auto 0.03 K/uL (0.00-0.30); Basophils Percent Auto 0.6 % (0.0-3.0); Eosinophils Absolute Auto 0.16 K/uL (0.00-0.50); Eosinophils Percent Auto 3.4 % (0.0-7.0); Hematocrit 37.7 % (33.0-51.0); Lymphocytes Percent Auto 8.6 % (20-44); Mean Corpuscular HGB Conc 32 gm/dL (32-36); Mean Corpuscular Hemoglobin 24 pg (26-34); Mean Corpuscular Volume 76 fL (80-100); Monocytes Percent Auto 9.6 % (0.0-11.0); Neutrophils Percent Auto 77.8 % (42.0-72.0); Platelet Count* 205 K/uL (140-440); RDW Coefficient of Variation % 19.7 % (11.5-15.5); Red Blood Count 4.95 m/uL (4.00-5.20); White Blood Count* 4.67 K/uL (4.50-11.00)
[2023-11-12 10:15] LABS: Slide Review Reflex No
[2023-11-12 10:28] LABS: Albumin* 4.1 g/dL (3.3-5.0); Chloride* 107 mmol/L (96-114)
[2023-11-12 10:29] LABS: Potassium* 3.6 mmol/L (3.6-5.1); Sodium* 139 mmol/L (135-149)
[2023-11-12 10:31] LABS: Anion Gap 6 mEq/L (7-15); Aspartate Amino Transferase* 63 U/L (12-35); Bilirubin Total* 0.5 mg/dL (0.1-1.5); Carbon Dioxide* 26 mmol/L (20-32); Creatinine* 0.7 mg/dL (0.5-1.5); Estimated Glomerular Filt Rate 107 ml/min; Total Protein* 7.5 g/dL (6.0-8.3)
[2023-11-12 10:32] LABS: Alanine Aminotransferase* 33 U/L (4-35); Alkaline Phosphatase* 113 U/L (40-150); Blood Urea Nitrogen* 11 mg/dL (5-24); Calcium* 9.4 mg/dL (8.4-10.6); Glucose* 170 mg/dL (60-115)
[2023-11-12] MEDS: 0.9 % SODIUM CHLORIDE 250 ml IV (11:19)
[2023-11-12] MEDS: SODIUM CHLORIDE 0.9 % (FLUSH) 10 ML SYRINGE IVF ×2 (11:19→12:56)
[2023-11-12] MEDS: dexAMETHasone 10 MG in 0.9 % SODIUM CHLORIDE 100 ml 100 ML 420 MG IVPB (11:36)
[2023-11-12] MEDS: FAMOTIDINE 10 MG/ML inj 20 MG IVP (11:58)
[2023-11-12] MEDS: diphenhydrAMINE 25 MG in 0.9 % SODIUM CHLORIDE 100 ml 100 ML 420 MG IVPB (11:58)
[2023-11-12] MEDS: HEPARIN 500 UNIT/5 ML SYRINGE IVF (12:56)
[2023-12-03 09:49] LABS: Basophils Absolute Auto 0.03 K/uL (0.00-0.30); Basophils Percent Auto 0.5 % (0.0-3.0); Eosinophils Absolute Auto 0.26 K/uL (0.00-0.50); Eosinophils Percent Auto 4.7 % (0.0-7.0); Hematocrit 37.9 % (33.0-51.0); Hemoglobin* 12.2 gm/dL (12.0-16.0); Immature Granulocytes Abs Auto 0.01 K/uL (0.00-0.30); Immature Granulocytes Pct Auto 0.2 %; Lymphocytes Percent Auto 14.8 % (20-44); Mean Corpuscular HGB Conc 32 gm/dL (32-36); Mean Corpuscular Hemoglobin 25 pg (26-34); Mean Corpuscular Volume 78 fL (80-100); Monocytes Percent Auto 12.3 % (0.0-11.0); Neutrophils Absolute Auto 3.74 K/uL (1.7-7.0); Neutrophils Percent Auto 67.5 % (42.0-72.0); Platelet Count* 213 K/uL (140-440); RDW Coefficient of Variation % 18.5 % (11.5-15.5); Red Blood Count 4.86 m/uL (4.00-5.20); White Blood Count* 5.54 K/uL (4.50-11.00)
[2023-12-03 09:51] LABS: Slide Review Reflex No
[2023-12-03 10:09] LABS: Albumin* 4.2 g/dL (3.3-5.0)
[2023-12-03 10:10] LABS: Chloride* 106 mmol/L (96-114); Potassium* 3.9 mmol/L (3.6-5.1); Sodium* 138 mmol/L (135-149)
[2023-12-03 10:12] LABS: Alkaline Phosphatase* 106 U/L (40-150); Anion Gap 6 mEq/L (7-15); Aspartate Amino Transferase* 65 U/L (12-35); Bilirubin Total* 0.7 mg/dL (0.1-1.5); Blood Urea Nitrogen* 9 mg/dL (5-24); Carbon Dioxide* 26 mmol/L (20-32); Creatinine* 0.7 mg/dL (0.5-1.5); Estimated Glomerular Filt Rate 107 ml/min; Total Protein* 7.5 g/dL (6.0-8.3)
[2023-12-03 10:13] LABS: Alanine Aminotransferase* 37 U/L (4-35); Calcium* 9.2 mg/dL (8.4-10.6); Glucose* 146 mg/dL (60-115)
[2023-12-03 10:45] LABS: HCG Quantitative* 3.15 mIU/mL
[2023-12-03] MEDS: dexAMETHasone 10 MG in 0.9 % SODIUM CHLORIDE 100 ml 100 ML 404 MG IVPB (11:10)
[2023-12-03] MEDS: HEPARIN 500 UNIT/5 ML SYRINGE IVF (11:10)
[2023-12-03] MEDS: SODIUM CHLORIDE 0.9 % (FLUSH) 10 ML SYRINGE IVF (11:10)
[2023-12-03] MEDS: 0.9 % SODIUM CHLORIDE 250 ml IV (11:11)
[2023-12-03] MEDS: diphenhydrAMINE 25 MG in 0.9 % SODIUM CHLORIDE 100 ml 100 ML 402 MG IVPB (11:27)
[2023-12-03] MEDS: FAMOTIDINE 10 MG/ML inj 20 MG IVP (11:57)
[2023-12-24 10:19] LABS: Basophils Absolute Auto 0.02 K/uL (0.00-0.30); Basophils Percent Auto 0.4 % (0.0-3.0); Eosinophils Percent Auto 3.9 % (0.0-7.0); Hematocrit 38.3 % (33.0-51.0); Hemoglobin* 12.3 gm/dL (12.0-16.0); Lymphocytes Percent Auto 16.7 % (20-44); Mean Corpuscular HGB Conc 32 gm/dL (32-36); Mean Corpuscular Hemoglobin 26 pg (26-34); Mean Corpuscular Volume 80 fL (80-100); Neutrophils Absolute Auto 3.47 K/uL (1.7-7.0); Platelet Count* 198 K/uL (140-440); RDW Coefficient of Variation % 17.3 % (11.5-15.5); Red Blood Count 4.82 m/uL (4.00-5.20)
[2023-12-24 10:23] LABS: Slide Review Reflex No
[2023-12-24 10:32] LABS: Albumin* 4.1 g/dL (3.3-5.0); Chloride* 108 mmol/L (96-114); Sodium* 139 mmol/L (135-149)
[2023-12-24 10:34] LABS: Creatinine* 0.6 mg/dL (0.5-1.5); Estimated Glomerular Filt Rate 111 ml/min
[2023-12-24 10:35] LABS: Alanine Aminotransferase* 36 U/L (4-35); Alkaline Phosphatase* 107 U/L (40-150); Anion Gap 8 mEq/L (7-15); Aspartate Amino Transferase* 70 U/L (12-35); Bilirubin Total* 0.8 mg/dL (0.1-1.5); Blood Urea Nitrogen* 14 mg/dL (5-24); Carbon Dioxide* 23 mmol/L (20-32); Glucose* 145 mg/dL (60-115); Total Protein* 7.1 g/dL (6.0-8.3)
[2023-12-24] MEDS: dexAMETHasone 10 MG in 0.9 % SODIUM CHLORIDE 100 ml 100 ML 404 MG IVPB (11:38)
[2023-12-24] MEDS: FAMOTIDINE 10 MG/ML inj 20 MG IVP (11:38)
[2023-12-24] MEDS: diphenhydrAMINE 25 MG in 0.9 % SODIUM CHLORIDE 100 ml 100 ML 400 MG IVPB (12:00)
[2023-12-24] MEDS: SODIUM CHLORIDE 0.9 % (FLUSH) 10 ML SYRINGE IVF (12:57)
[2023-12-24] MEDS: HEPARIN 500 UNIT/5 ML SYRINGE IVF (12:57)
[2023-12-24] MEDS: 0.9 % SODIUM CHLORIDE 250 ml IV (12:57)
[2024-01-14 09:55] LABS: Basophils Absolute Auto 0.03 K/uL (0.00-0.30); Basophils Percent Auto 0.6 % (0.0-3.0); Eosinophils Absolute Auto 0.23 K/uL (0.00-0.50); Eosinophils Percent Auto 4.5 % (0.0-7.0); Hematocrit 39.6 % (33.0-51.0); Hemoglobin* 12.6 gm/dL (12.0-16.0); Immature Granulocytes Abs Auto 0.01 K/uL (0.00-0.30); Immature Granulocytes Pct Auto 0.2 %; Lymphocytes Percent Auto 14.1 % (20-44); Mean Corpuscular HGB Conc 32 gm/dL (32-36); Mean Corpuscular Hemoglobin 26 pg (26-34); Mean Corpuscular Volume 82 fL (80-100); Monocytes Percent Auto 10.4 % (0.0-11.0); Neutrophils Percent Auto 70.2 % (42.0-72.0); Platelet Count* 154 K/uL (140-440); RDW Coefficient of Variation % 16.5 % (11.5-15.5); Red Blood Count 4.86 m/uL (4.00-5.20); White Blood Count* 5.12 K/uL (4.50-11.00)
[2024-01-14 10:02] LABS: Slide Review Reflex No
[2024-01-14 10:15] LABS: Chloride* 108 mmol/L (96-114); Potassium* 3.9 mmol/L (3.6-5.1); Sodium* 138 mmol/L (135-149)
[2024-01-14 10:17] LABS: Anion Gap 5 mEq/L (7-15); Aspartate Amino Transferase* 72 U/L (12-35); Bilirubin Total* 0.6 mg/dL (0.1-1.5); Carbon Dioxide* 25 mmol/L (20-32); Creatinine* 0.6 mg/dL (0.5-1.5); Estimated Glomerular Filt Rate 111 ml/min
[2024-01-14 10:18] LABS: Alanine Aminotransferase* 37 U/L (4-35); Alkaline Phosphatase* 100 U/L (40-150); Blood Urea Nitrogen* 10 mg/dL (5-24); Calcium* 8.9 mg/dL (8.4-10.6); Glucose* 149 mg/dL (60-115); Total Protein* 6.9 g/dL (6.0-8.3)
[2024-01-14 10:37] LABS: HCG Quantitative* < 2.39 mIU/mL
[2024-01-14] MEDS: dexAMETHasone 10 MG in 0.9 % SODIUM CHLORIDE 100 ml 100 ML 404 MG IVPB (12:54)
[2024-01-14] MEDS: 0.9 % SODIUM CHLORIDE 250 ml IV (12:54)
[2024-01-14] MEDS: SODIUM CHLORIDE 0.9 % (FLUSH) 10 ML SYRINGE IVF (12:54)
[2024-01-14] MEDS: HEPARIN 500 UNIT/5 ML SYRINGE IVF (12:54)
[2024-01-14] MEDS: diphenhydrAMINE 25 MG, FAMOTIDINE 20 MG in 0.9 % SODIUM CHLORIDE 100 ml 100 ML 410 MG IVPB (13:13)
[2024-01-14] MEDS: FAMOTIDINE 10 MG/ML inj 20 MG IVP (13:43)
== END 2024-01-19 23:59 | disposition home or self-care (01) ==
LOC: CCIC 09:30
PROVIDERS: Clinical Nurse Specialist; Internal Medicine Hematology & Oncology; PCP Family Medicine; Referring Provider Family Medicine; Visit Provider Physician Assistant
DX: C50.412 Malignant neoplasm of upper-outer quadrant of left female breast (principal); Z17.0 Estrogen receptor positive status [ER+]; R63.4 Abnormal weight loss; R68.81 Early satiety; D64.9 Anemia, unspecified; R53.83 Other fatigue; G62.0 Drug-induced polyneuropathy; T45.1X5A Adverse effect of antineoplastic and immunosuppressive drugs, initial encounter; R11.2 Nausea with vomiting, unspecified; Z79.810 Long term (current) use of selective estrogen receptor modulators (SERMs)
CPT/HCPCS: 36415; 36591; 80053; 82670; 84702; 85025; 93306; 96376; 96413; 96415; 99214; 99215; G0463; J1100; J1200; J1642; J7050; J9354; S0028

== ENCOUNTER 2024-04-23 10:15 | Outpatient (RCR) | payer OTHER, SELFPAY | END 2024-04-23 12:18 | disposition home or self-care (01) | PROVIDERS: PCP Family Medicine; Visit Provider Surgery | DX: Z90.13 Acquired absence of bilateral breasts and nipples (principal); R29.3 Abnormal posture; C50.919 Malignant neoplasm of unspecified site of unspecified female breast; R29.898 Other symptoms and signs involving the musculoskeletal system; Z51.89 Encounter for other specified aftercare; R60.9 Edema, unspecified; R53.1 Weakness; Z74.09 Other reduced mobility | CPT/HCPCS: 97110; 97140; 97161; 97164; 97165; 97530; 97535; J3475 ==

== ENCOUNTER 2024-07-21 09:32 | Outpatient (CLI) | payer BC, SELFPAY ==
--- NOTE | 2024-07-21 10:00 | CRLHL7_ITS ---
For Patients: As a result of the Century Cures Act, medical imaging exams and procedure reports are released immediately into your electronic medical record. You may view this report before your referring provider. If you have questions, please contact your health care provider. INDICATION: Breast cancer TECHNIQUE: Volumetric helical scanning of the chest, abdomen and pelvis was performed with 126 cc of Isovue 370 contrast material IV. Coronal and sagittal reconstructions were obtained. COMPARISON: Chest CT of 04/11/2024 FINDINGS: CHEST: Postop changes of bilateral mastectomies and reconstructions are again demonstrated. No new or enlarged nodule is demonstrated. Previous demonstrate infiltrates in the left lower lobe have resolved. A 6 mm inflammatory nodule in the left lower lobe on the prior study has also resolved. No acute infiltrate is demonstrated. Left lung volume loss is again demonstrated with scarring in the left upper lobe, as before. Prominent paratracheal lymph node seen previously are now normal in size. No axillary or hilar lymphadenopathy is evident. The heart is normal in size. ABDOMEN/PELVIS: A fatty liver is again demonstrated as well as a subcentimeter segment 7 cyst. Several stones are demonstrated in the gallbladder. The bile ducts are within normal limits. No lymphadenopathy is evident. No free fluid is demonstrated. The spleen is borderline enlarged. The adrenal glands and pancreas are negative. The kidneys are unremarkable. The bowel is negative. The uterus and ovaries are unremarkable. No lytic or blastic bone lesion is identified. IMPRESSION: 1. Post bilateral mastectomies and reconstructions, as before. No evidence of recurrent/metastatic disease. 2. Resolution of left lower lobe pneumonias and inflammatory nodule. 3. Fatty liver and subcentimeter segment 7 cyst. 4. Borderline splenomegaly. 5. Cholelithiasis. Please note that all CT scans at this facility use dose modulation, iterative reconstruction, and/or weight-based dosing when appropriate to reduce radiation dose to as low as reasonably achievable. Dictated by Erasmo Dan MD @ 07/21/2024 3:31:57 PM (Electronically Signed)
== END 2024-07-21 09:33 | disposition home or self-care (01) ==
LOC: CT 09:33
PROVIDERS: PCP Family Medicine; Visit Provider Internal Medicine Hematology & Oncology
DX: C50.412 Malignant neoplasm of upper-outer quadrant of left female breast (principal); K76.89 Other specified diseases of liver; K80.20 Calculus of gallbladder without cholecystitis without obstruction; Z17.0 Estrogen receptor positive status [ER+]
CPT/HCPCS: 71260; 74177; Q9967

== ENCOUNTER 2024-07-30 14:00 | Outpatient (RCR) | payer BC, OTHER, SELFPAY ==
[2024-02-05 09:43] LABS: Basophils Absolute Auto 0.03 K/uL (0.00-0.30); Basophils Percent Auto 0.6 % (0.0-3.0); Eosinophils Absolute Auto 0.02 K/uL (0.00-0.50); Eosinophils Percent Auto 0.4 % (0.0-7.0); Hematocrit 37.1 % (33.0-51.0); Hemoglobin* 12.1 gm/dL (12.0-16.0); Immature Granulocytes Abs Auto 0.01 K/uL (0.00-0.30); Immature Granulocytes Pct Auto 0.2 %; Lymphocytes Percent Auto 12.1 % (20-44); Mean Corpuscular HGB Conc 33 gm/dL (32-36); Mean Corpuscular Hemoglobin 27 pg (26-34); Mean Corpuscular Volume 82 fL (80-100); Monocytes Percent Auto 8.2 % (0.0-11.0); Neutrophils Percent Auto 78.5 % (42.0-72.0); Platelet Count* 156 K/uL (140-440); Red Blood Count 4.51 m/uL (4.00-5.20); White Blood Count* 5.11 K/uL (4.50-11.00)
[2024-02-05 09:46] LABS: Slide Review Reflex No
--- NOTE | 2024-02-05 09:47 | URNOTE ---
Request received for authorization for ado-trastuzumab emtansine (Kadcyla) ([id number]) has been approved 01/28/2024 to 07/29/2024. .
[2024-02-05 09:57] LABS: Albumin* 4.2 g/dL (3.3-5.0)
[2024-02-05 09:58] LABS: Chloride* 105 mmol/L (96-114); Potassium* 3.7 mmol/L (3.6-5.1); Sodium* 138 mmol/L (135-149)
[2024-02-05 10:00] LABS: Anion Gap 8 mEq/L (7-15); Bilirubin Total* 1.2 mg/dL (0.1-1.5); Carbon Dioxide* 25 mmol/L (20-32); Creatinine* 0.8 mg/dL (0.5-1.5); Estimated Glomerular Filt Rate 91 ml/min
[2024-02-05 10:01] LABS: Alanine Aminotransferase* 45 U/L (4-35); Alkaline Phosphatase* 101 U/L (40-150); Aspartate Amino Transferase* 83 U/L (12-35); Blood Urea Nitrogen* 16 mg/dL (5-24); Calcium* 9.3 mg/dL (8.4-10.6); Glucose* 142 mg/dL (60-115); Total Protein* 7.2 g/dL (6.0-8.3)
[2024-02-05 10:27] LABS: HCG Quantitative* < 2.39 mIU/mL
[2024-02-05] MEDS: 0.9 % SODIUM CHLORIDE 250 ml IV (10:45)
[2024-02-05] MEDS: SODIUM CHLORIDE 0.9 % (FLUSH) 10 ML SYRINGE IVF ×2 (10:45→12:15)
[2024-02-05] MEDS: dexAMETHasone 10 MG in 0.9 % SODIUM CHLORIDE 100 ml 100 ML 400 MG IVPB (10:54)
[2024-02-05] MEDS: diphenhydrAMINE 25 MG, FAMOTIDINE 20 MG in 0.9 % SODIUM CHLORIDE 100 ml 100 ML 410 MG IVPB (11:12)
[2024-02-05] MEDS: HEPARIN 500 UNIT/5 ML SYRINGE IVF (12:15)
[2024-02-25 09:29] LABS: Basophils Absolute Auto 0.03 K/uL (0.00-0.30); Basophils Percent Auto 0.6 % (0.0-3.0); Eosinophils Percent Auto 5.7 % (0.0-7.0); Hematocrit 36.3 % (33.0-51.0); Hemoglobin* 11.9 gm/dL (12.0-16.0); Immature Granulocytes Abs Auto 0.01 K/uL (0.00-0.30); Immature Granulocytes Pct Auto 0.2 %; Lymphocytes Percent Auto 16.6 % (20-44); Mean Corpuscular HGB Conc 33 gm/dL (32-36); Mean Corpuscular Hemoglobin 27 pg (26-34); Mean Corpuscular Volume 83 fL (80-100); Monocytes Percent Auto 10.7 % (0.0-11.0); Neutrophils Absolute Auto 3.48 K/uL (1.7-7.0); Neutrophils Percent Auto 66.2 % (42.0-72.0); Platelet Count* 146 K/uL (140-440); RDW Coefficient of Variation % 16.4 % (11.5-15.5); Red Blood Count 4.35 m/uL (4.00-5.20); White Blood Count* 5.25 K/uL (4.50-11.00)
[2024-02-25 09:38] VITALS: BP 125/59; PULSE 60; RESP 16; TEMP 35.9; O2SAT 98
[2024-02-25 09:39] LABS: Slide Review Reflex No
[2024-02-25 09:52] LABS: Albumin* 3.8 g/dL (3.3-5.0)
[2024-02-25 09:53] LABS: Chloride* 107 mmol/L (96-114); Sodium* 136 mmol/L (135-149)
[2024-02-25 09:55] LABS: Anion Gap 3 mEq/L (7-15); Aspartate Amino Transferase* 79 U/L (12-35); Bilirubin Total* 0.7 mg/dL (0.1-1.5); Carbon Dioxide* 26 mmol/L (20-32); Creatinine* 0.6 mg/dL (0.5-1.5); Estimated Glomerular Filt Rate 111 ml/min
[2024-02-25 09:56] LABS: Alanine Aminotransferase* 34 U/L (4-35); Alkaline Phosphatase* 97 U/L (40-150); Blood Urea Nitrogen* 13 mg/dL (5-24); Calcium* 9.2 mg/dL (8.4-10.6); Glucose* 132 mg/dL (60-115); Total Protein* 6.8 g/dL (6.0-8.3)
[2024-02-25 10:15] LABS: HCG Quantitative* < 2.39 mIU/mL
[2024-02-25] MEDS: dexAMETHasone 10 MG in 0.9 % SODIUM CHLORIDE 100 ml 100 ML 400 MG IVPB (10:25)
[2024-02-25] MEDS: 0.9 % SODIUM CHLORIDE 250 ml IV (10:25)
[2024-02-25] MEDS: SODIUM CHLORIDE 0.9 % (FLUSH) 10 ML SYRINGE IVF ×2 (10:26→11:54)
[2024-02-25] MEDS: diphenhydrAMINE 25 MG in 0.9 % SODIUM CHLORIDE 100 ml 100 ML 400 MG IVPB (10:45)
[2024-02-25] MEDS: FAMOTIDINE 10 MG/ML inj 20 MG IVP (10:59)
[2024-02-25] MEDS: HEPARIN 500 UNIT/5 ML SYRINGE IVF (11:54)
--- NOTE | 2024-02-28 14:18 | ONC.NURNOTE ---
Addendum entered by Carolina Rangel 03/06/24 08:18: Discussed with Dr. Triana. Patient instructed to hold her Tamoxifen starting now and for [address] Triana also states that she is willing to do a pre-op visit while Tiesha is here on 03/17 for her follow up visit. Patient verbalizes understanding. Original Note: Patient called to let us know she will be having surgery on 03/21 for her implant exchange. I explained that Dr. Triana likely would recommend she hold her Tamoxifen pre and post operative. I assured her that I would review with Dr. Triana and return her call with directions. Patient also wondering if we would be willing to clear her for surgery at her visit on 03/17.
[2024-03-17 08:16] LABS: Basophils Absolute Auto 0.04 K/uL (0.00-0.30); Basophils Percent Auto 0.7 % (0.0-3.0); Eosinophils Absolute Auto 0.38 K/uL (0.00-0.50); Eosinophils Percent Auto 6.9 % (0.0-7.0); Hematocrit 37.3 % (33.0-51.0); Hemoglobin* 12.2 gm/dL (12.0-16.0); Immature Granulocytes Abs Auto 0.03 K/uL (0.00-0.30); Immature Granulocytes Pct Auto 0.5 %; Lymphocytes Percent Auto 16.3 % (20-44); Mean Corpuscular HGB Conc 33 gm/dL (32-36); Mean Corpuscular Hemoglobin 28 pg (26-34); Mean Corpuscular Volume 84 fL (80-100); Monocytes Percent Auto 13.7 % (0.0-11.0); Neutrophils Absolute Auto 3.42 K/uL (1.7-7.0); Neutrophils Percent Auto 61.9 % (42.0-72.0); Platelet Count* 139 K/uL (140-440); RDW Coefficient of Variation % 15.8 % (11.5-15.5); Red Blood Count 4.42 m/uL (4.00-5.20); White Blood Count* 5.53 K/uL (4.50-11.00)
[2024-03-17 08:19] LABS: Slide Review Reflex No
[2024-03-17 08:34] LABS: Albumin* 3.7 g/dL (3.3-5.0); Chloride* 107 mmol/L (96-114); Sodium* 140 mmol/L (135-149)
[2024-03-17 08:36] LABS: Creatinine* 0.7 mg/dL (0.5-1.5); Est. Creatinine Clearance* 84.87; Estimated Glomerular Filt Rate 107 ml/min
[2024-03-17 08:37] LABS: Alanine Aminotransferase* 31 U/L (4-35); Alkaline Phosphatase* 94 U/L (40-150); Anion Gap 5 mEq/L (7-15); Aspartate Amino Transferase* 65 U/L (12-35); Bilirubin Total* 0.5 mg/dL (0.1-1.5); Blood Urea Nitrogen* 16 mg/dL (5-24); Calcium* 9.1 mg/dL (8.4-10.6); Carbon Dioxide* 28 mmol/L (20-32); Glucose* 156 mg/dL (60-115); Total Protein* 6.6 g/dL (6.0-8.3)
[2024-03-17 09:10] LABS: HCG Quantitative* < 2.39 mIU/mL
[2024-03-17] MEDS: dexAMETHasone 10 MG in 0.9 % SODIUM CHLORIDE 100 ml 100 ML 404 MG IVPB (09:50)
[2024-03-17] MEDS: FAMOTIDINE 10 MG/ML inj 20 MG IVP (09:50)
[2024-03-17] MEDS: SODIUM CHLORIDE 0.9 % (FLUSH) 10 ML SYRINGE IVF (09:51)
[2024-03-17] MEDS: 0.9 % SODIUM CHLORIDE 250 ml IV (09:51)
[2024-03-17] MEDS: diphenhydrAMINE 25 MG in 0.9 % SODIUM CHLORIDE 100 ml 100 ML 400 MG IVPB (10:11)
[2024-04-07 09:07] VITALS: BP 118/78; PULSE 80; RESP 14; TEMP 36.4; O2SAT 97
[2024-04-07 09:35] LABS: Eosinophils Percent Auto 9.4 % (0.0-7.0); Hematocrit 33.4 % (33.0-51.0); Hemoglobin* 10.8 gm/dL (12.0-16.0); Immature Granulocytes Pct Auto 0.2 %; Lymphocytes Percent Auto 17.4 % (20-44); Mean Corpuscular HGB Conc 32 gm/dL (32-36); Mean Corpuscular Hemoglobin 28 pg (26-34); Mean Corpuscular Volume 87 fL (80-100); Monocytes Percent Auto 12.8 % (0.0-11.0); Neutrophils Percent Auto 59.2 % (42.0-72.0); Platelet Count* 169 K/uL (140-440); RDW Coefficient of Variation % 15.6 % (11.5-15.5); Red Blood Count 3.84 m/uL (4.00-5.20); White Blood Count* 4.13 K/uL (4.50-11.00)
[2024-04-07 09:39] LABS: Slide Review Reflex No
[2024-04-07 09:45] LABS: Albumin* 3.7 g/dL (3.3-5.0); Chloride* 106 mmol/L (96-114); Sodium* 137 mmol/L (135-149)
[2024-04-07 09:47] LABS: Anion Gap 5 mEq/L (7-15); Bilirubin Total* 0.6 mg/dL (0.1-1.5); Carbon Dioxide* 26 mmol/L (20-32); Creatinine* 0.6 mg/dL (0.5-1.5); Est. Creatinine Clearance* 97.94; Estimated Glomerular Filt Rate 110 ml/min
[2024-04-07 09:48] LABS: Alanine Aminotransferase* 26 U/L (4-35); Alkaline Phosphatase* 88 U/L (40-150); Aspartate Amino Transferase* 57 U/L (12-35); Blood Urea Nitrogen* 10 mg/dL (5-24); Calcium* 9.1 mg/dL (8.4-10.6); Glucose* 156 mg/dL (60-115); Total Protein* 6.5 g/dL (6.0-8.3)
[2024-04-07 10:19] LABS: HCG Quantitative* < 2.39 mIU/mL
[2024-04-07] MEDS: FAMOTIDINE 10 MG/ML inj 20 MG IVP (10:45)
[2024-04-07] MEDS: dexAMETHasone 10 MG in 0.9 % SODIUM CHLORIDE 100 ml 100 ML 404 MG IVPB (10:45)
[2024-04-07] MEDS: 0.9 % SODIUM CHLORIDE 250 ml IV (10:45)
[2024-04-07] MEDS: diphenhydrAMINE 25 MG in 0.9 % SODIUM CHLORIDE 100 ml 100 ML 402 MG IVPB (11:11)
[2024-04-07] MEDS: HEPARIN 500 UNIT/5 ML SYRINGE IVF (12:09)
[2024-04-07] MEDS: SODIUM CHLORIDE 0.9 % (FLUSH) 10 ML SYRINGE IVF (12:09)
[2024-04-29 08:38] LABS: Basophils Absolute Auto 0.03 K/uL (0.00-0.30); Basophils Percent Auto 0.6 % (0.0-3.0); Eosinophils Percent Auto 6.2 % (0.0-7.0); Hematocrit 34.8 % (33.0-51.0); Hemoglobin* 11.4 gm/dL (12.0-16.0); Lymphocytes Percent Auto 14.6 % (20-44); Mean Corpuscular HGB Conc 33 gm/dL (32-36); Mean Corpuscular Hemoglobin 28 pg (26-34); Mean Corpuscular Volume 85 fL (80-100); Monocytes Percent Auto 11.5 % (0.0-11.0); Neutrophils Absolute Auto 3.25 K/uL (1.7-7.0); Neutrophils Percent Auto 67.1 % (42.0-72.0); Platelet Count* 145 K/uL (140-440); RDW Coefficient of Variation % 14.4 % (11.5-15.5); White Blood Count* 4.85 K/uL (4.50-11.00)
[2024-04-29 08:53] LABS: Slide Review Reflex No
[2024-04-29 08:55] LABS: Albumin* 3.7 g/dL (3.3-5.0); Chloride* 102 mmol/L (96-114)
[2024-04-29 08:56] LABS: Potassium* 3.7 mmol/L (3.6-5.1); Sodium* 135 mmol/L (135-149)
[2024-04-29 08:58] LABS: Anion Gap 8 mEq/L (7-15); Bilirubin Total* 0.7 mg/dL (0.1-1.5); Carbon Dioxide* 25 mmol/L (20-32); Creatinine* 0.6 mg/dL (0.5-1.5); Est. Creatinine Clearance* 97.94; Estimated Glomerular Filt Rate 110 ml/min; Total Protein* 6.7 g/dL (6.0-8.3)
[2024-04-29 08:59] LABS: Alanine Aminotransferase* 26 U/L (4-35); Alkaline Phosphatase* 90 U/L (40-150); Aspartate Amino Transferase* 55 U/L (12-35); Blood Urea Nitrogen* 12 mg/dL (5-24); Calcium* 9.2 mg/dL (8.4-10.6); Glucose* 178 mg/dL (60-115)
[2024-04-29 09:21] LABS: HCG Quantitative* < 2.39 mIU/mL
[2024-04-29] MEDS: 0.9 % SODIUM CHLORIDE 250 ml IV (10:00)
[2024-04-29] MEDS: FAMOTIDINE 10 MG/ML inj 20 MG IVP (10:22)
[2024-04-29] MEDS: SODIUM CHLORIDE 0.9 % (FLUSH) 10 ML SYRINGE IVF (11:45)
[2024-04-29] MEDS: HEPARIN 500 UNIT/5 ML SYRINGE IVF (11:45)
--- NOTE | 2024-05-08 13:31 | ONC.NURNOTE ---
Plan of care update: Patient scheduled for survivorship visit 05/23. Patient scheduled for port removal at [facility] 05/27 at 1PM.
== END 2024-08-03 23:59 | disposition home or self-care (01) ==
LOC: CCIC 14:00
PROVIDERS: Internal Medicine Hematology & Oncology; Physician Assistant; PCP Family Medicine; Referring Provider Family Medicine; Visit Provider Clinical Nurse Specialist
DX: C50.412 Malignant neoplasm of upper-outer quadrant of left female breast (principal); Z17.0 Estrogen receptor positive status [ER+]; Z79.810 Long term (current) use of selective estrogen receptor modulators (SERMs); Z90.13 Acquired absence of bilateral breasts and nipples; R53.83 Other fatigue; Z92.3 Personal history of irradiation
CPT/HCPCS: 36415; 36591; 71260; 80053; 84702; 85025; 93308; 93321; 93325; 96367; 96375; 96376; 96413; 99211; 99214; 99215; G0463; J1100; J1200; J1642; J7050; J9354; Q9967; S0028

== ENCOUNTER 2024-12-05 13:55 | Outpatient (CLI) | payer BC, SELFPAY ==
--- NOTE | 2024-12-05 14:00 | CRLHL7_ITS ---
For Patients: As a result of the Century Cures Act, medical imaging exams and procedure reports are released immediately into your electronic medical record. You may view this report before your referring provider. If you have questions, please contact your health care provider. INDICATION: Abnormal Vaginal Bleeding COMPARISON: None. TECHNIQUE: 2D garcia-scale and color Doppler images were acquired of the pelvis using a transabdominal and transvaginal approach. Transvaginal imaging performed to better visualize the endometrial stripe and ovaries. FINDINGS: Sonographic images demonstrate a normal size and smooth outer contour of the uterus. Uterus measures 7.4 cm in length by 3.4 cm in AP diameter by 4.4 cm in transverse dimension. The myometrium has a normal uniform echotexture. The endometrial lining appears heterogeneous with multiple small cystic areas and measures 7.8 mm in composite thickness. The right ovary measures 3.3 x 2.0 x 2.2 cm in size and the left ovary measures 2.2 x 1.3 x 1.9 cm. The ovaries demonstrate normal arterial and venous blood flow on color Doppler analysis. There are no suspicious fluid collections within the cul-de-sac. Complex right ovarian cyst without internal blood flow noted. Internal reticular echoes are present. This cyst measures 1.8 x 1.5 x 1.4 cm. IMPRESSION: Heterogeneous endometrium with multiple small cystic areas. The endometrium measures 7.8 millimeters. Hemorrhagic right ovarian cyst measures 1.8 cm. Dictated by Prashant White MD @ 12/08/2024 4:34:08 PM (Electronically Signed)
== END 2024-12-05 13:56 | disposition home or self-care (01) ==
LOC: US 13:55
PROVIDERS: PCP Family Medicine; Visit Provider Internal Medicine Hematology & Oncology
DX: N93.9 Abnormal uterine and vaginal bleeding, unspecified (principal); R93.89 Abnormal findings on diagnostic imaging of other specified body structures; N83.201 Unspecified ovarian cyst, right side
CPT/HCPCS: 76830; 76856

== ENCOUNTER 2024-12-29 10:10 | Outpatient (CLI) | payer BC, SELFPAY ==
--- NOTE | 2024-12-29 10:27 | P.ANES_ITS ---
Anesthesia Charges Start Date/Time Anesthesia Start Date: 12/29/24 Anesthesia Start Time: 10:47 Stop Date/Time Anesthesia Stop Date: 12/29/24 Anesthesia Stop Time: 11:09 Coding CPT Codes CPT Codes: ANES LWR INTST SCR COLSC - 99697 ([id number]) P3 - PATIENT W/SEVERE SYS DISEASE, QX - MANAGER EMPLOYMENT SVC W/ MD MED DIRECTION, QK - LINUX SYSTEMS ADMINISTRATOR 2-4 CNCRNT ANES PROC
--- NOTE | 2024-12-29 10:27 | W.ANESCHARGE ---
Anesthesia Charges Start Date/Time Anesthesia Start Date: 12/29/24 Anesthesia Start Time: 10:47 Stop Date/Time Anesthesia Stop Date: 12/29/24 Anesthesia Stop Time: 11:09 Coding CPT Codes CPT Codes: ANES LWR INTST SCR COLSC - 38374 ([id number]) P3 - PATIENT W/SEVERE SYS DISEASE, QX - GLASS SMOOTHER SVC W/ MD MED DIRECTION, QK - MOLD UNLOADER 2-4 CNCRNT ANES PROC
--- NOTE | 2024-12-29 11:15 | P.ANES_ITS ---
Anesthesia Charges Start Date/Time Anesthesia Start Date: 12/29/24 Anesthesia Start Time: 10:47 Stop Date/Time Anesthesia Stop Date: 12/29/24 Anesthesia Stop Time: 11:09 Coding CPT Codes CPT Codes: ANES LWR INTST SCR COLSC - 81786 ([id number]) QK - JAMMER OPERATOR 2-4 CNCRNT ANES PROC, QX - OTR COMPANY DRIVER SVC W/ MED DIRECTION, P3 - PATIENT W/SEVERE SYS DISEASE
--- NOTE | 2024-12-29 11:15 | W.ANESCHARGE ---
Anesthesia Charges Start Date/Time Anesthesia Start Date: 12/29/24 Anesthesia Start Time: 10:47 Stop Date/Time Anesthesia Stop Date: 12/29/24 Anesthesia Stop Time: 11:09 Coding CPT Codes CPT Codes: ANES LWR INTST SCR COLSC - 30826 ([id number]) QK - BREAKER OFF 2-4 CNCRNT ANES PROC, QX - SENIOR HEALTH EDUCATOR SVC W/ MED DIRECTION, P3 - PATIENT W/SEVERE SYS DISEASE
--- OUTSIDE RECORDS SUMMARY | 2024-12-30 02:23 | XMS_ITS | Clinical Summary ---
Author Organization [facility] Address [address] [place] [address] Care Team Providers Care Modern Dancer Name Role Phone Sara Javier MD Primary Care Provider Allergies Active Allergy Reactions Criticality Noted Date Comments Adhesive Rash 05/21/2023 Cefaclor Rash 06/26/2006 Chlorhexidine Hives,Itching 05/22/2023 Clindamycin GI Upset,Nausea Only 07/10/2023 Throat pain Dextromethorphan Dizziness High 05/21/2023 Erythromycin GI Upset 06/26/2006 Penicillins 06/26/2006 Phenylephrine Dizziness High 05/21/2023 Wsg-Iyrklbfbn-Xo-Acetaminoph en Dizziness 06/26/2006 Medications ALBUTEROL SULFATE 90 MCG/ACTUATION AEROSOL INHALERIndications:A cute bronchitis inhale 1 puff by inhalation route every 4-6 hours as needed 1 canister 12 08/01/19 07 Active diphenoxylate-atropi ne, 2.5-0.025 mg, (LOMOTIL) 2.5-0.025 mg tablet Take 1 Tablet by mouth 2 times daily if needed for Diarrhea. Active acetaminophen (TYLENOL) 500 mg capsule Take 1,000 mg by mouth every 6 hours if needed. Active aspirin-acetaminophe n-caffeine (EXCEDRIN EX STR) 250-250-65 mg Take 1 [...] mouth every 6 hours if needed. Active tamoxifen citrate (TAMOXIFEN ORAL) Take by mouth. Active Calcium-Cholecalcife rol, D3, 600 mg-10 mcg (400 unit) cap Take by mouth. Active Active Problems Problem Noted Date Diagnosed Date Malignant neoplasm of left b reast in female, estrogen receptor positive 06/07/2023 Allergic rhinitis, cause unspecified 06/26/2006 Unspecified asthma(493.90) 06/26/2006 Encounters Date Type Department Care Team Description 12/05/2024 Orders Only [facility] Scanner 1 scan: (1-Ord) ANTHONY H+C, PELVIC, 12/05/2024 from Last 3 Months Immunizations Immunization Administration Dates Next Due MMR 10/27/1992 Td [...] of Communication with Friends and Fami ly 0 12/28/2022 Financial Resource Strain Answer Date R ecorded [...] Housing in the Last Year 1 12/28/2022 Comments No Sex and Gender Information Value Date Recorded Sex Assigned at Female 07/05/2021 9:01 PM ANIMAL THERAPIST Legal Sex Female 5:23 AM ANIMAL THERAPIST Gender Identity Female 07/05/2021 9:01 PM ANIMAL THERAPIST Sexual Orientation Straight 07/05/2021 9: 01 PM ANIMAL THERAPIST 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 Not on file Not on file Not on kendall e Obstetrics History Last Filed Vital Signs Vital Sign Reading Time Taken Comments Blood Pressure 107/70 05/27/2024 1:06 PM ANIMAL THERAPIST Pulse 73 05/27/2024 1:06 PM ANIMAL THERAPIST Temperature 36.8 C (98.3 F) 08/29/2006 9:40 AM ANIMAL THERAPIST Respiratory Rate 20 08/01/2006 7:30 PM ANIMAL THERAPIST Oxygen Saturation 98% 05/27/2024 1:06 PM ANIMAL THERAPIST Inhaled Oxygen Concentration - - Weight 107.6 kg (237 lb 3.2 oz) 05/27/2024 1:06 PM ANIMAL THERAPIST Height 162.6 cm (5' 4) 06/07/2023 11:0 1 AM ANIMAL THERAPIST Body Mass Index 40.72 06/07/2023 11:01 AM ANIMAL THERAPIST Plan of Treatment Health Maintenance Due Date Last Done Comments HIV for age 15-65 1990 Hepatitis C screening for age 18-79 1993 Hepatitis B series for 19+ (1 of 3 - 19+ 3-dose series) 1994 Pap test for age 21-65 12/15/2008 12/15/2005, 2004 Colonoscopy through age 75 2020 Lipids for age 45-75 2020 12/15/2005 Depression screening for age 12+ 12/29/2023 12/28/2022 Mammogram for age 45-75 12/29/2023 12/28/2022 COVID-19 vaccine series ( season) 2024 03/23/2022, 05/11/2021, 11/03/2020, Additional history exists BMI (ht and wt on same day) for age 18+ 06/07/2024 06/07/2023, 02/11/2019 Influenza Vaccine (Season Ended) 2025 Tetanus booster 02/01/2029 02/01/2019, 05/02, 11/05/1991 Tdap Completed 02/01/2019 Pneumococcal series for age 6-49 Aged Out No longer eligible based on patient's age to complete this topic Procedures Procedure Name Priority Date/Time Associated Diagnosis Comments SCAN-ULTRASOUND REPORT 12:00 AM CDT XR MAMMO JASWANT BILAT DIAG Routine 12/28/2022 2:17 PM CDT Mass overlapping multiple quadrants of left breast GYNECOLOGICAL PANEL Timed 12/15/2005 1 2:00 PM CDT LIPID PANEL Timed 12/15/2005 9:41 AM CDT from Last 3 Months or Most Recently Relevant to Health Maintenance Results * SCAN-ULTRASOUND REPORT (12/05/2024 12:00 AM CDT) Anatomical Region Laterality Modality Other us Scanner OTHER Final Result * XR MAMMO JASWANT BILAT DIAG (12/28/2022 [...] Prashant White MD @12/28/2022 2:36:19 PM / RADHA:dennys PATIENTS: You will also receive a letter with your examination results in an easy to read format. If you have questions about your results, please contact your referring provider. Narrative 12/28/2022 3:57 PM CDT For Patients: As a result of the 21st Century Cures Act, medical imaging exams and procedure reports are released immediately into your electronic medical record. You may view this report before your referring provider. If you have questions, please contact your health care provider. DIGITAL DIAGNOSTIC BILATERAL MAMMOGRAM USING TOMOSYNTHESIS AND COMPUTER-AIDED DETECTION, 12/28/2022 LEFT BREAST ULTRASOUND, 12/28/2022 CLINICAL HISTORY: LEFT breast lump. COMPARISON: None. TECHNIQUE: Digital BILATERAL mammogram in four projections. Tomosynthesis and CAD utilized. Real-time ultrasound imaging of [...] are present measuring up to 2.0 cm. us Sara Javier MD MAMMO Final Resul t * GYNECOLOGICAL PANEL (12/15/2005 12:00 PM CDT) CYTOLOGY CYTOPATHOLOGY REPORT [facility] Status: Final Report [id number] CLINICAL INFORMATION LMP : 11-17-05 Previous Pap Date : 07-11-04 Previous PAP Dx : Negative Previous Effort/bx date : None Hormone Usage : alesse Appearance of Cervix : NORMAL Effort/Bx done today : No HPV Request : Reflex HPV test if PAP Dx ASCUS SPECIMEN SOURCE : Cervical/vaginal ThinPrep Vial, screening SPECIMEN ADEQUACY : Satisfactory for evaluation No endocervical component seen. INTERPRETATION/RES ULT: Negative for intraepithelial lesion or malignancy. Cytology 1st Screener : bon Signed by: bon This specimen was screened by the FDA approved ThinPrep Imaging System and manually reviewed. NOTE: The Pap test is a screening technique, not a diagnostic procedure. It is used primarily to screen for squamous cancers and precursor lesions. Published studies have shown that it is subject to both false negative and false positive results. The pap test should not be used as the sole means to diagnose or exclude pre-malignant and malignant lesions. COLLECTED: 12/15/05 ACCESSIONED: 12/18/05 SIGNED: 12/27/05 [facility] 12/15/2005 12:0 0 PM CDT 12/18/2005 9:37 AM CDT Leila Clement NP PATHOLOGY/CYTOLOGY Final Result [facility] [place]NAL ZIP [address] [place] [id number] * LIPID PANEL (12/15/2005 9:41 AM CDT) CHOLESTEROL,TOTAL 172 110 - 199 mg/dL [facility] TRIGLYCERIDES 137 <150 mg/dL [facility] HDL CHOLESTEROL 47 >40 mg/dL [facility] CHOL/HDL RATIO 3.66 <4.51 [facility] LDL CHOLESTEROL 98 <131 mg/dL [facility] PATIENT STATUS Fasting [facility] 12/15/2005 9:41 AM CDT 12/15/2005 9:20 AM CDT Leila Clement NP CHEMISTRY Final Result [facility] [address] [facility] [place] [id number] from Last 3 Months or Most Recently Relevant to Health Maintenance Insurance [facility] [place] [address] Care Teams Modern Dancer Relationship Specialty Start Date End Date Sara Javier MD [address] [place] [address] PCP - General Family Practice 01/19/23
--- OUTSIDE RECORDS SUMMARY | 2024-12-30 02:23 | XMS_ITS ---
Author Organization [facility] Address [address] [place] [address] Care Team Providers Care Manager French Name Role Phone Unavailable Primary Care Provider Unavailabl e Active Problems Problem Noted Date Diagnosed Date Malignant Neoplasm Of Breast Female Left 023 Cancer Staging:Clinical stage from 01/01/2023:Stage IB(cT2, cN1, cM0, G3, ER+, SD+, HER2+) - Unsigned Pathologic stage from 06/14/2023: ypT2, pN0(sn), cM0, G2, ER+, SD+, HER2+ - Unsigned Current Treatment and Therapy Plans No current plan information found. Past Treatment and Therapy Plans No past plan information found. Past Radiation Episodes * 3D CLINICAL CARE COORDINATOR: Left Chest wallOverview* First Treatment Date Last Treatment Date Treatment Site Technique Goal Episode Provider 09/20/2023 10/24/2023 Left Chest wall 3D CLINICAL CARE COORDINATOR Curative * Linked Problems Malignant Neoplasm Of Breast Female Left Treatment Courses* Course 1xBreast 09/20/2023 - 10/24/2023 Treatment Period Fraction Dose Fractions Total Dose Plans Planned [id number] 10/15/2023 - 10/24/2023 200 cGy 8 8 1 ,600 cGy [id number] 09/20/2023 - 10/12/2023 200 cGy 17 / 17 3 ,400 cGy Reference Points Delivered [id number] 09/20/2023 - 10/24/2023 5,000 cGy
--- OUTSIDE RECORDS SUMMARY | 2024-12-30 02:23 | XMS_ITS | Clinical Summary ---
Author Organization [facility] Address [address] [place] [address] Care Team Providers Care Floorworker Lasting Name Role Phone Unavailable Primary Care Provider Unavailabl e Source Comments Patient records contain information from all sites at [facility]. For routine questions regarding patient records, call [phone] during business hours, M-F 8:00 AM - 5:00 PM Central Time. Record requests for emergency care only can be directed to [phone] at any time.[facility] Allergies Active Allergy Reactions Criticality Noted Date Comments Adhesive Other (see comments) 06/20/2023 Cefaclor Rash High 06/26/2006 hives Chlorhexidine Hives (Reselect Reaction),Itching High 05/22/2023 rash, airway Clindamycin Other (see comments) 09/13/2023 Throat pain Lkz-Aiuelygwm-Bs-Acetamino phen Headache 06/26/2006 Dextromethorphan Other (see comments) High Erythromycin GI intolerance 06/26/2006 Penicillins Other (see comments) 06/26/2006 Phenylephrine Other (see comments) High 06/20/2023 Medications albuterol 90 mcg/actuation inhaler Inhale. 7 Active acetaminophen (TYLENOL) 500 mg capsule Take 1,000 mg by mouth every 6 (six) hours as needed. Active ondansetron (ZOFRAN) 4 mg tablet Take 2 mg by mouth every 8 (eight) hours as needed. Active mometasone (ELOCON) 0.1 % cream Apply 1 Application topically daily. Apply to skin within the treatment field. 45 g 4 Active Active Problems Problem Noted Date Diagnosed Date Malignant Neoplasm Of Breast Female Left 023 Cancer Staging:Clinical stage from 01/01/2023:Stage IB(cT2, cN1, cM0, G3, ER+, AZ+, HER2+) - Unsigned Pathologic stage from 06/14/2023: ypT2, pN0(sn), cM0, G2, ER+, AZ+, HER2+ - Unsigned Social History Tobacco Use Types Packs/Day Years Used Date Smoking Tobacco: Never Smokeless Tobacco: Never Tobacco Cessation:Counseling Given: Not Answered Alcohol Use Standard Drinks/Week Comments Not Currently 0 (1 standard drink = 0.6 oz pur e alcohol) [facility] Utilities Answer Date Recorded In the past 12 months has e electric, gas, oil, or water company threatened to shut off services in your home? No 09/09/2023 Hunger Vital Sign Answer Date Recorded [...] things needed for daily living? No 09/09/2023 Housing Stability Answer Date Recorded What is your living situation today? I have a [facility] to live 09/09/2023 Comments Unknown Sex and Gender Information Value Date Recorded Sex Assigned at Female 07/04/2023 4:23 PM FIBERLINE SUPERVISOR Legal Sex Female 8:31 PM FIBERLINE SUPERVISOR Gender Identity Female 07/04/2023 4:23 PM FIBERLINE SUPERVISOR Sexual Orientation Straight 07/04/2023 4: 23 PM FIBERLINE SUPERVISOR Last Filed Vital Signs Vital Sign Reading Time Taken Comments Blood Pressure 149/81 09/13/2023 10:51 AM CDT Pulse 73 09/13/2023 10:51 AM CDT Temperature 36.7 C (98.1 F) 10/23/2023 2:50 PM CDT Respiratory Rate - - Oxygen Saturation - - Inhaled Oxygen Concentration - - Weight 106 kg (233 lb 14.5 oz) 10/23/2023 2:50 P M CDT Height - - Body Mass Index - - Plan of Treatment Health Maintenance Due Date Last Done Comments CT Colonography 1975 Cervical/Vaginal Cancer Screening 1975 Cologuard 1975 Colonoscopy 1975 Colorectal Cancer Screening 1975 FIT 1975 Fasting Glucose for Diabetes Screening 1975 HIV Screening 1975 Hepatitis C Screening 1975 Lipid (Cholesterol) Screening 1975 Hepatitis B Vaccines (1 of 3 - 19+ 3-dose series) 1994 Pneumococcal vaccine (0-49 years) (1 of 2 - PCV) 1994 Zoster Vaccines (1 of 2) 1994 COVID-19 Vaccine (5 - season) 2024 03/23/2022, 05/11/2021, 11/03/2020, Additional history exists Influenza Vaccine (#1) 2024 Depression Screening (Annual PHQ-2) 07/02/2024 DTaP,Tdap,and Td Vaccines (3 - Td or Tdap) 02/01/2029 02/01/2019, 11/05/1991 Mammogram Discontinued 06/14/2023, 06/01, 01/01/2023, Additional history exists HPV Vaccines Aged Out No longer eligi ble based on patient's age to complete this topic IPV Vaccines Aged Out No longer eligi ble based on patient's age to complete this topic Procedures Procedure Name Priority Date/Time Associated Diagnosis Comments OUTSIDE MG MAMMOGRAM Routine 06/14/2023 9:05 AM FIBERLINE SUPERVISOR from Last 3 Months or Most Recently Relevant to Health Maintenance Results * MM clip placement LT-Outside Mammogram (06/14/2023 9:05 AM FIBERLINE SUPERVISOR) Narrative [facility] - 06/26/2023 8:44 AM FIBERLINE SUPERVISOR This order has been created and auto-finalized to support the import of outside images. If available, original interpretation can be found on the Media Tab in Chart Review, in Document Viewer, or as an image in QREADS. If a re-interpretation or overread is required please follow defined workflow. us Provider Not In System IMG BI PROCEDURES Final R esult [facility] NA from Last 3 Months or Most Recently Relevant to Health Maintenance Insurance
--- OUTSIDE RECORDS SUMMARY | 2024-12-30 02:23 | XMS_ITS | Clinical Summary ---
Author Organization [facility] Address [address] [place] [address] Care Team Providers Care Food Equipment Service Technician Name Role Phone No Ref-Primary, Physician Primary Care Provider Allergies Active Allergy Reactions Criticality Noted Date Comments Cefaclor 06/14/2017 Erythromycin 06/14/2017 Penicillins 06/14/2017 Medications albuterol (PROAIR HFA/PROVENTIL HFA/VENTOLIN HFA) 108 (90 BASE) MCG/ACT Inhaler Inhale 2 puffs into the lungs every 6 hours Active Social History Tobacco Use Types Packs/Day Years Used Date Smoking Tobacco: Never Assessed Comments Unknown Sex and Gender Information Value Date Recorded Sex Assigned at Not on file Legal Sex Female 9:47 PM MANAGER IN TRAINING Gender Identity Not on file Sexual Orientation Not on file Last Filed Vital Signs Vital Sign Reading Time Taken Comments Blood Pressure 146/73 06/14/2017 10:51 PM MANAGER IN TRAINING Pulse 80 06/14/2017 9:54 PM MANAGER IN TRAINING Temperature 36.7 C (98.1 F) 06/14/2017 9:54 PM MANAGER IN TRAINING Respiratory Rate - - Oxygen Saturation 100% 06/14/2017 9:54 PM MANAGER IN TRAINING Inhaled Oxygen Concentration - - Weight - - Height - - Body Mass Index - - Plan of Treatment [id number] [facility] [employer] Care Teams Food Equipment Service Technician Relationship Specialty Start Date End Date No Ref-Primary, Physician PCP - General 06/14/17
== END 2024-12-29 10:11 | disposition home or self-care (01) ==
LOC: OP CLINIC 10:11
PROVIDERS: PCP Family Medicine; Visit Provider Internal Medicine
DX: Z12.11 Encounter for screening for malignant neoplasm of colon (principal); Z80.0 Family history of malignant neoplasm of digestive organs
CPT/HCPCS: 00812; 45378; J2704

== ENCOUNTER 2025-01-07 07:32 | Day surgery (SDC) | payer BC, SELFPAY ==
[2025-01-07] VITALS (10 sets, daily range): BP systolic 119–149; BP diastolic 70–115; PULSE 60–71; RESP 14–116; TEMP 36.8–37.1; O2SAT 97–100; BMI 45.6
[2025-01-07] MEDS: LACTATED RINGERS 1000 ML 1,000 ML 100 ML IV (07:55)
[2025-01-07 08:06] LABS: Ur HCG Qualitative* Negative (Negative)
[2025-01-07] MEDS: SODIUM CHLORIDE 0.9 % (FLUSH) 10 ML SYRINGE IVF (08:18)
[2025-01-07 08:20] LABS: Hemoglobin* 12.9 gm/dL (12.0-16.0)
--- NOTE | 2025-01-07 08:44 | W.PM.H&PU ---
History & Physical Update History & Physical Update H&P Reviewed and patient assessed: No changes noted H&P Updates: No new episode of bleeding
[2025-01-07 08:48] LABS: Creatinine* 0.7 mg/dL (0.5-1.5); Est. Creatinine Clearance* 83.95; Estimated Glomerular Filt Rate 106 ml/min
[2025-01-07] MEDS: LIDOCAINE 1%-EPI 1:100,000 20 ML INFILTRATI (09:51)
[2025-01-07] MEDS: BACITRACIN OINTMENT BULK TUBE 1 APPLIC TOPICAL (10:09)
--- NOTE | 2025-01-07 10:24 | SUR.OPER ---
deficit = 65
--- NOTE | 2025-01-07 10:30 | W.PM.GYNPROC ---
Procedure Note Time Seen by Provider: 10:30 Date of procedure: 01/07/25 Will [facility] bill your pro fee for this procedure?: Yes Procedure Description: Preoperative diagnosis: 49 year-old with G0 who is has abnormal bleeding and thickened endometrium. Postoperative diagnosis: Same. Endometrial polyps noted. Procedure: Hysteroscopy, dilation and curettage, and polypectomy Anesthesia: Conscious sedation with paracervical block. Surgeon:Mariann Hemphill MD Estimated blood loss: <5 mL UOP: 50 cc IV fluid: 500 cc Specimen: Endometrial curettings/polyps to pathology. Complications: None Findings: Exam under anesthesia: Cervix palpates normal. Uterus: anteverted position, 4 week size, mobile, without nodularity/masses palpable. Adnexa were without fullness or nodularity. On hysteroscopy: multiple polyps noted in the endometrial cavity with the biggest one being on the anterior uterine wall. Normal bilateral tubal ostia. Procedure: Tiesha was taken to the operating where conscious sedation was found to be adequate. She was placed in the dorsal lithotomy position. Erythema was noted around her right IV site and patient was not exposed to anything on her allergy list. New IV placed by EVENT ATTENDANT. She was subsequently given IV Benadryl in erythema resolved. An exam under anesthesia was performed with findings stated above. She was then prepped and draped in normal sterile manner using betadine. A bivalve small Tuttle metal speculum was placed in the vaginal canal. The cervix and vaginal canal appear normal. A paracervical block was placed using 1% lidocaine with epinephrine: 5 mL injected at the 4 and 8 o'clock positions on the cervix. The anterior lip of the cervix was then grasped with a long tenaculum. The cervix was dilated to Hegar 6. The uterus sounded to 7 cm. The hysteroscope advanced into the uterus and a diagnostic hysteroscopy was performed with findings stated above. Normal saline was used as the insufflation medium. Soft tissue shaver was used to perform polypectomy and global curetting. The uterus and documented a normal appearing uterine cavity at the end of the procedure. Fluid deficit at the end of the procedure 65mL. Total fluid: 450 cc The hysteroscope and tenaculum clamp were removed from the uterus and cervix. Excellent hemostasis noted. Nothing was used for hemostasis. Small abrasion noted at vaginal fourchette from the speculum due to small caliber of the introitus. No bleeding noted. Bacitracin placed. The patient tolerated the procedure well. Sponge, lap and instruments counts were correct at the end of the procedure. The patient was awakened from anesthesia and taken to the recovery area in stable condition. Surgical debrief performed and specimen reviewed at the end of the procedure.
--- NOTE | 2025-01-07 10:31 | SUR.OPER ---
deficit=65
--- NOTE | 2025-01-07 11:03 | P.ANES_ITS ---
Anesthesia Charges Start Date/Time Anesthesia Start Date: 01/07/25 Anesthesia Start Time: 09:18 Stop Date/Time Anesthesia Stop Date: 01/07/25 Anesthesia Stop Time: 10:30 Coding CPT Codes CPT Codes: ANESTH HYSTEROSCOPE/GRAPH - 23950 ([id number]) P3 - PATIENT W/SEVERE SYS DISEASE, QK - COURSEWARE DEVELOPER 2-4 CNCRNT ANES PROC, QX - FORENSIC ENGINEER SVC W/ MD MED DIRECTION
--- NOTE | 2025-01-07 11:03 | W.ANESCHARGE ---
Anesthesia Charges Start Date/Time Anesthesia Start Date: 01/07/25 Anesthesia Start Time: 09:18 Stop Date/Time Anesthesia Stop Date: 01/07/25 Anesthesia Stop Time: 10:30 Coding CPT Codes CPT Codes: ANESTH HYSTEROSCOPE/GRAPH - 02425 ([id number]) P3 - PATIENT W/SEVERE SYS DISEASE, QK - INDUSTRIAL DESIGN ENGINEER 2-4 CNCRNT ANES PROC, QX - X RAY NURSE SVC W/ MD MED DIRECTION
--- NOTE | 2025-01-07 11:18 | P.ANES_ITS ---
Anesthesia Charges Start Date/Time Anesthesia Start Date: 01/07/25 Anesthesia Start Time: 09:18 Stop Date/Time Anesthesia Stop Date: 01/07/25 Anesthesia Stop Time: 10:30 Coding CPT Codes CPT Codes: ANESTH HYSTEROSCOPE/GRAPH - 93962 ([id number]) P3 - PATIENT W/SEVERE SYS DISEASE, QX - RESIN SHAVER SVC W/ MD MED DIRECTION, QK - SUCTION DREDGE DUMPING SUPERVISOR 2-4 CNCRNT ANES PROC
--- NOTE | 2025-01-07 11:18 | W.ANESCHARGE ---
Anesthesia Charges Start Date/Time Anesthesia Start Date: 01/07/25 Anesthesia Start Time: 09:18 Stop Date/Time Anesthesia Stop Date: 01/07/25 Anesthesia Stop Time: 10:30 Coding CPT Codes CPT Codes: ANESTH HYSTEROSCOPE/GRAPH - 40675 ([id number]) P3 - PATIENT W/SEVERE SYS DISEASE, QX - SUPERVISOR ASSEMBLING SVC W/ MD MED DIRECTION, QK - SUPERVISOR WOOL SHEARING 2-4 CNCRNT ANES PROC
--- NOTE | 2025-01-07 11:41 | SUR.PHASEII ---
previous marked hives location on right hand are now clear.
== END 2025-01-07 12:01 | disposition home or self-care (01) ==
LOC: OR 07:32
PROVIDERS: PCP Family Medicine; Visit Provider Obstetrics & Gynecology
PROC: 0UDB8ZZ Extraction of Endometrium, Via Natural or Artificial Opening Endoscopic (ICD-10-PCS; CPT 58558; principal; 2025-01-07 08:45)
DX: N84.0 Polyp of corpus uteri (principal); R93.89 Abnormal findings on diagnostic imaging of other specified body structures; N93.9 Abnormal uterine and vaginal bleeding, unspecified
CPT/HCPCS: 58558; 00952; 36415; 81025; 82565; 85018; 86850; 86900; 86901; 88305; A9270; C1782; J1100; J1200; J1885; J2250; J2405; J2704; J3010; J3490; J7120

== ENCOUNTER 2025-01-16 14:50 | Outpatient (CLI) | payer BC, SELFPAY ==
--- NOTE | 2025-01-16 15:00 | CRLHL7_ITS ---
For Patients: As a result of the Century Cures Act, medical imaging exams and procedure reports are released immediately into your electronic medical record. You may view this report before your referring provider. If you have questions, please contact your health care provider. CLINICAL HISTORY: f/u ovarian cyst COMPARISON: 12/05/2024 TECHNIQUE: 2D garcia-scale and color Doppler images were acquired of the pelvis using a transvaginal approach. FINDINGS: On transvaginal imaging, the myometrium has a normal uniform echotexture. The uterus measures 6.9 x 3.2 x 4.0 cm. Endometrium is heterogeneous with multiple small cystic areas. Endometrium measures 6.3 millimeters. The left ovary measures 1.7 x 1.3 x 2.3 cm in size and the right ovary measures 2.5 x 1.8 x 2.1 cm. The ovaries demonstrate normal arterial and venous blood flow on color Doppler analysis. There are no suspicious fluid collections within the cul-de-sac. IMPRESSION: Resolution of the previously noted right ovarian cyst. Dictated by Prashant White MD @ 01/16/2025 4:30:05 PM (Electronically Signed)
== END 2025-01-16 14:51 | disposition home or self-care (01) ==
LOC: US 14:50
PROVIDERS: PCP Family Medicine; Visit Provider Obstetrics & Gynecology
DX: N83.201 Unspecified ovarian cyst, right side (principal)
CPT/HCPCS: 76830

== ENCOUNTER 2025-03-19 14:30 | Outpatient (RCR) | payer BC, SELFPAY ==
--- NOTE | 2024-11-26 15:10 | ONC.NURNOTE ---
Addendum entered by Carolina Rangel 12/03/24 09:07: Patient informed that out of precaution, Dr. Triana is recommending a Pelvic US, both TA and TV. Patient is agreeable and was transferred to radiology schedulers. Original Note: Patient called to report her period returned on 11/24 after no menstrual period for 2 years. She describes it as a pretty normal period, maybe ms access database developer than normal. She is wondering if she needs to be concerned. We discussed that she will monitor it closely, keeping track of dates and flow. We will try and determine if she resumes a normal cycle. If the bleeding stops and then returns quickly, she is instructed to call. I also assured her that I would discuss this with Dr. Triana and let her know if she feels that any additional intervention is needed.
--- NOTE | 2024-12-16 09:53 | ONC.NURNOTE ---
Patient called with a few questions regarding her upcoming [id number]
--- NOTE | 2024-12-16 09:53 | ONC.NURNOTE ---
Patient called with a few questions regarding her upcoming hysteroscopy on 01/07 1. Does she need to hold her Tamoxifen and/or gabapentin prior to or after? Reviewed with Dr. Triana and patient informed no need to hold for this procedure. 2. Patient wondering if Dania could do her pre-op clearance at her routine follow up on 12/25. Okay per Dania. Patient will need CBC, CMP, UA and EKG prior. Patient verbalizes understanding.
[2024-12-25 13:01] LABS: Hematocrit 38.0 % (33.0-51.0); Hemoglobin* 13.2 gm/dL (12.0-16.0); Immature Granulocytes Abs Auto 0.01 K/uL (0.00-0.30); Immature Granulocytes Pct Auto 0.2 %; Lymphocytes Absolute Auto 1.50 K/uL (0.90-2.90); Mean Corpuscular HGB Conc 35 gm/dL (32-36); Mean Corpuscular Hemoglobin 30 pg (26-34); Mean Corpuscular Volume 86 fL (80-100); RDW Coefficient of Variation % 13.2 % (11.5-15.5); Red Blood Count 4.43 m/uL (4.00-5.20); White Blood Count* 5.97 K/uL (4.50-11.00)
[2024-12-25 13:09] LABS: Appearance Urine Clear (Clear)
[2024-12-25 13:15] LABS: Albumin* 4.0 g/dL (3.3-5.0); Chloride* 103 mmol/L (96-114)
[2024-12-25 13:16] LABS: Potassium* 4.1 mmol/L (3.6-5.1); Sodium* 137 mmol/L (135-149)
[2024-12-25 13:17] LABS: Slide Review Reflex No
[2024-12-25 13:18] LABS: Alanine Aminotransferase* 30 U/L (4-35); Anion Gap 6 mEq/L (7-15); Aspartate Amino Transferase* 55 U/L (12-35); Bilirubin Total* 0.7 mg/dL (0.1-1.5); Blood Urea Nitrogen* 12 mg/dL (5-24); Carbon Dioxide* 28 mmol/L (20-32); Creatinine* 0.7 mg/dL (0.5-1.5); Est. Creatinine Clearance* 83.95; Estimated Glomerular Filt Rate 106 ml/min
[2024-12-25 13:19] LABS: Alkaline Phosphatase* 89 U/L (40-150); Calcium* 9.6 mg/dL (8.4-10.6); Glucose* 142 mg/dL (60-115); Total Protein* 6.9 g/dL (6.0-8.3)
[2024-12-25 16:49] LABS: Vitamin D 25 Hydroxy* 30 ng/mL (30-80)
--- NOTE | 2024-12-31 16:04 | ONC.NURNOTE ---
Patient informed that Dania Chacko had reviewed her Vit D results and recommends she start Vit D3 50,000 IU weekly x8 and then monthly x4. Will plan to recheck levels in 3 months. Patient verbalizes understanding.
--- NOTE | 2025-01-06 10:17 | W.ED.EKGINT ---
EKG Interpretation EKG Data Attestation: I personally reviewed and interpreted this ECG as follows: Date of EKG Tracin12/25/24 EKG interpretation date: 01/06/25 Prior EKG tracings: not available for review Interpretation: EKG interpretation, indication is chemotherapeutic monitoring. No old EKG to compare to actually have 2 EKGs from this date. Taking approximately 1 minute apart. Mild sinus bradycardia is noted, with a ventricular rate of 56. QRS is 74 milliseconds QT is 452, QTC is 436. Poor R-wave progression is noted across the precordial leads. This may be related anterior infarct, it may be helpful to review this with an old EKG. No acute ST wave changes are noted. Assessment: Abnormal EKG with mild sinus bradycardia, and poor R-wave progression.
--- NOTE | 2025-01-28 15:53 | ONC.NURNOTE ---
Dr. Hemphill contacted our team regarding patients concerns with restarting Tamoxifen. Patient scheduled to have a virtual visit with Dr. Triana 02/10 to discuss her options. Patient plans to continue holding Tamoxifen until this discussion.
[2025-02-10 15:28] LABS: HCG Quantitative* < 2.39 mIU/mL
[2025-02-11 22:38] LABS: Estradiol Premenol Female <20 pg/mL
[2025-02-12 14:45] LABS: Follicle Stimulating Hormone 18.2 IU/L
--- NOTE | 2025-02-16 13:48 | ONC.NURNOTE ---
Estradiol labs reviewed with Dr. Triana. Even though the results are post-menopausal, patient informed that Dr. Triana recommends we still proceed with Zoladex injections and start anastrazole 3-4 weeks after first injection. We will reassess her menopausal state in 6-12 months. Patient scheduled to begin injections on 02/19. Patient verbalizes understanding.
[2025-02-19 14:38] VITALS: BP 141/74; RESP 17; TEMP 36.7; O2SAT 97
[2025-02-19] MEDS: GOSERELIN ACETATE 3.6 MG IMPLANT SUBCUT (15:15)
--- NOTE | 2025-02-25 14:50 | ONC.NURNOTE ---
Patient called to report a bruise in the area she was given her Zoladex injection. Reports the bruise is a little smaller than a quarter. Denies pain or redness. Patient informed that bruising after Zoladex injections are possible. She should continue to monitor and report any signs of infection or worsening bruising. Patient verbalizes understanding.
[2025-03-19 15:18] LABS: Ur HCG Qualitative* Negative (Negative)
[2025-03-19] MEDS: GOSERELIN ACETATE 3.6 MG IMPLANT SUBCUT (15:34)
[2025-03-19 15:50] VITALS: BP 111/76; RESP 16; TEMP 36.4; O2SAT 95
== END 2025-03-23 23:59 | disposition home or self-care (01) ==
LOC: CCIC 14:30
PROVIDERS: Physician Assistant; PCP Family Medicine; Referring Provider Family Medicine; Visit Provider Internal Medicine Hematology & Oncology
DX: C50.412 Malignant neoplasm of upper-outer quadrant of left female breast (principal); Z17.0 Estrogen receptor positive status [ER+]; N93.9 Abnormal uterine and vaginal bleeding, unspecified; Z51.81 Encounter for therapeutic drug level monitoring; Z79.899 Other long term (current) drug therapy
CPT/HCPCS: 36415; 80053; 81001; 81025; 82306; 82670; 83001; 83002; 84702; 85025; 87086; 93005; 93010; 96402; 99215; G0463; J9202